=== PATIENT | male | born 1940 | race Caucasian/White ===

== ENCOUNTER → 2017-11-10 13:15 | Outpatient (CLI) | payer MEDICARE, OTHER, SELFPAY ==
[2017-11-10 14:07] LABS: Absolute Lymphocyte Count 1.56 X10^3/ul (0.83-4.51); Absolute Neutrophil Count 2.8 X10^3/uL (2.0-7.7); Basophil# 0.03 X10^3/uL; Basophil% 0.6 % (0-1); Eosinophil# 0.03 X10^3/uL; Eosinophils% 0.6 % (0-5); Hematocrit 45.6 % (40-54); Hemoglobin 15.9 g/dl (13.0-16.5); Lymphocyte # 1.56 X10^3/ul (4.0); Lymphocyte % 29.4 % (19-41); Mean Corp Hgb Conc 34.9 g/gl (32-36); Mean Corpuscular Hgb 31.4 pg (27.0-32.0); Mean Corpuscular Volume 89.9 fL (80-94); Mean Platelet Vol. 8.8 fl (6.2-12.0); Neutrophil # 2.77 X10^3/uL (2.7-7.7); Neutrophil % 52.2 % (47-70); Platelet Count 203 K/mm3 (150-450); RBC Distribution Width CV 14.2 % (11.6-14.6); RBC Distribution Width SD 46.8 fl (35.1-43.9); Red Blood Count 5.07 M/mm3 (4.6-6.2); White Blood Count 5.3 K/mm3 (4.4-11.0)
[2017-11-10 14:14] LABS: POSITIVE COUNT NO; POSITIVE DIFFERENTIAL NO; POSITIVE MORPHOLOGY NO
[2017-11-10 14:47] LABS: ALB/GLOB Ratio 0.7 RATIO (0.9-2.4); AST(SGOT) 23 U/L (15-37); Alanine Aminotransfer ALT/SGPT 29 U/L (16-61); Albumin, Serum 3.2 g/dL (3.2-5.0); Alkaline Phosphatase 66 U/L (45-117); Anion Gap 7 (5-15); BUN 15 mg/dL (7-18); BUN/Creat Ratio 10.8 RATIO (10-20); Calcium,Total 8.7 mg/dL (8.5-10.1); Chloride 99 mmol/L (98-107); Creatinine, Serum 1.39 mg/dL (0.70-1.30); EST Glomerular Filtration Rate 53 mL/min (>60); Est Glom Filt Rate - Afr Amer 64 mL/min (>60); Globulin 4.7 g/dL (2.2-4.2); Glucose 69 mg/dL (74-106); Potassium 3.7 mmol/L (3.5-5.1); Protein, Total 7.9 g/dL (6.4-8.2); Sodium Level 134 mmol/L (136-145); Thyroid Stim Hormone (TSH) 0.87 uIU/mL (0.358-3.74)
== END ==
PROVIDERS: Family Provider Family Medicine Geriatric Medicine; PCP Family Medicine Geriatric Medicine; Visit Provider Family Medicine Geriatric Medicine
DX: E11.9 Type 2 diabetes mellitus without complications (principal); I10 Essential (primary) hypertension; F52.8 Other sexual dysfunction not due to a substance or known physiological condition
CPT/HCPCS: 36415; 80053; 84403; 84443; 85025; 87633

== ENCOUNTER → 2018-05-11 14:49 | Outpatient (CLI) | payer MEDICARE, OTHER, SELFPAY ==
[2018-05-11 17:37] LABS: Absolute Lymphocyte Count 2.15 X10^3/ul (0.83-4.51); Basophil# 0.04 X10^3/uL; Basophil% 0.4 % (0-1); Eosinophil# 0.13 X10^3/uL; Eosinophils% 1.4 % (0-5); Hematocrit 45.7 % (40-54); Hemoglobin 15.4 g/dl (13.0-16.5); Lymphocyte # 2.15 X10^3/ul (4.0); Lymphocyte % 22.7 % (19-41); Mean Corp Hgb Conc 33.7 g/gl (32-36); Mean Corpuscular Hgb 31.1 pg (27.0-32.0); Mean Corpuscular Volume 92.3 fL (80-94); Mean Platelet Vol. 9.3 fl (6.2-12.0); Monocyte# 1.08 X10^3/uL; Monocyte% 11.4 % (0-10); Neutrophil # 6.04 X10^3/uL (2.7-7.7); Neutrophil % 63.8 % (47-70); Platelet Count 283 K/mm3 (150-450); RBC Distribution Width CV 13.7 % (11.6-14.6); RBC Distribution Width SD 45.1 fl (35.1-43.9); Red Blood Count 4.95 M/mm3 (4.6-6.2); White Blood Count 9.5 K/mm3 (4.4-11.0)
[2018-05-11 17:44] LABS: POSITIVE COUNT NO; POSITIVE DIFFERENTIAL NO; POSITIVE MORPHOLOGY NO
[2018-05-11 17:49] LABS: Vitamin D,25 Hydroxy 21.1 ng/mL (29.95-100.01)
[2018-05-11 17:51] LABS: ALB/GLOB Ratio 0.9 RATIO (0.9-2.4); AST(SGOT) 20 U/L (15-37); Alanine Aminotransfer ALT/SGPT 28 U/L (16-61); Albumin, Serum 3.6 g/dL (3.2-5.0); Alkaline Phosphatase 70 U/L (45-117); Anion Gap 10 (5-15); BUN 13 mg/dL (7-18); BUN/Creat Ratio 8.8 RATIO (10-20); Calcium,Total 9.1 mg/dL (8.5-10.1); Chloride 103 mmol/L (98-107); Creatinine, Serum 1.48 mg/dL (0.70-1.30); EST Glomerular Filtration Rate 49 mL/min (>60); Est Glom Filt Rate - Afr Amer 59 mL/min (>60); Globulin 4.2 g/dL (2.2-4.2); Glucose 87 mg/dL (74-106); Potassium 4.3 mmol/L (3.5-5.1); Protein, Total 7.8 g/dL (6.4-8.2); Sodium Level 141 mmol/L (136-145); Thyroid Stim Hormone (TSH) 1.03 uIU/mL (0.358-3.74)
== END ==
PROVIDERS: Family Provider Family Medicine Geriatric Medicine; PCP Family Medicine Geriatric Medicine; Visit Provider Family Medicine Geriatric Medicine
DX: I10 Essential (primary) hypertension (principal); F52.8 Other sexual dysfunction not due to a substance or known physiological condition; E55.9 Vitamin D deficiency, unspecified
CPT/HCPCS: 36415; 80053; 82306; 84403; 84443; 85025

== ENCOUNTER → 2018-09-24 14:04 | Outpatient (CLI) | payer MEDICARE, OTHER, SELFPAY | PROVIDERS: Family Provider Family Medicine Geriatric Medicine; PCP Family Medicine Geriatric Medicine; Visit Provider Family Medicine Geriatric Medicine | DX: N39.0 Urinary tract infection, site not specified (principal) | CPT/HCPCS: 87086 ==

== ENCOUNTER → 2018-10-09 09:12 | Outpatient (CLI) | payer MEDICARE, OTHER, SELFPAY ==
[2017-10-13 06:18] VITALS: BMI 29.1
[2018-10-09 10:20] LABS: Absolute Lymphocyte Count 2.17 X10^3/ul (0.83-4.51); Basophil# 0.02 X10^3/uL; Basophil% 0.1 % (0-1); Eosinophil# 0.04 X10^3/uL; Eosinophils% 0.3 % (0-5); Hematocrit 48.6 % (40-54); Hemoglobin 15.7 g/dl (13.0-16.5); Lymphocyte # 2.17 X10^3/ul (4.0); Lymphocyte % 16.2 % (19-41); Mean Corp Hgb Conc 32.3 g/gl (32-36); Mean Corpuscular Hgb 30.5 pg (27.0-32.0); Mean Corpuscular Volume 94.6 fL (80-94); Mean Platelet Vol. 9.2 fl (6.2-12.0); Monocyte# 1.12 X10^3/uL; Monocyte% 8.4 % (0-10); Neutrophil % 74.8 % (47-70); Platelet Count 266 K/mm3 (150-450); RBC Distribution Width CV 14.2 % (11.6-14.6); RBC Distribution Width SD 48.8 fl (35.1-43.9); Red Blood Count 5.14 M/mm3 (4.6-6.2); White Blood Count 13.4 K/mm3 (4.4-11.0)
[2018-10-09 10:23] LABS: Color, Urine Yellow (Yellow); Glucose, Dipstick Normal (Normal); Ketone-Dipstick Negative (Negative); Leukocyte Esterase-Dipstick Negative /ul (Negative); Nitrite-Dipstick Negative (Negative); Occult Blood-Urine Negative /ul (Negative); Protein-Dipstick 15 mg/dl (Negative); Specific Gravity, Urine 1.025 (1.002-1.030); Urine Bilirubin Dipstick Negative (Negative); Urine Clarity Clear (Clear); Urine Urobilinogen 1 mg/dl (Normal)
[2018-10-09 10:29] LABS: Protein, Urine (Random) 24.1 mg/dL (<11.9); Protein:Creat Ratio 85 mg/g CRE (0-200)
[2018-10-09 10:31] LABS: POSITIVE COUNT NO; POSITIVE DIFFERENTIAL NO; POSITIVE MORPHOLOGY NO
[2018-10-09 10:45] LABS: PTHIN 86.2 pg/mL (18.4-80.1)
[2018-10-09 10:48] LABS: Albumin, Serum 3.5 g/dL (3.2-5.0); BUN 22 mg/dL (7-18); BUN/Creat Ratio 15.4 RATIO (10-20); Calcium,Total 8.6 mg/dL (8.5-10.1); Chloride 105 mmol/L (98-107); Creatinine, Serum 1.43 mg/dL (0.70-1.30); EST Glomerular Filtration Rate 51 mL/min (>60); Est Glom Filt Rate - Afr Amer 62 mL/min (>60); Glucose 101 mg/dL (74-106); Magnesium 2.4 mg/dL (1.6-2.6); Phosphorus 3.5 mg/dL (2.5-4.9); Potassium 3.8 mmol/L (3.5-5.1); Sodium Level 139 mmol/L (136-145)
== END ==
PROVIDERS: Family Provider Family Medicine Geriatric Medicine; PCP Family Medicine Geriatric Medicine; Referring Provider Internal Medicine Nephrology; Visit Provider Internal Medicine Nephrology
DX: E55.9 Vitamin D deficiency, unspecified (principal); N18.3 Chronic kidney disease, stage 3 (moderate); Z13.0 Encounter for screening for diseases of the blood and blood-forming organs and certain disorders involving the immune mechanism; N39.0 Urinary tract infection, site not specified
CPT/HCPCS: 36415; 80069; 81002; 82306; 82570; 83735; 83970; 84156; 85025; 87086; 87088

== ENCOUNTER 2018-11-04 13:35 | Emergency (ER) | payer MEDICARE, OTHER, SELFPAY ==
[2018-11-04 13:36] VITALS: BP 138/74; PULSE 87; RESP 14; TEMP 36.6; O2SAT 95; BMI 27.4
[2018-11-04 13:49] VITALS: O2SAT 100
--- NOTE | 2018-11-04 13:57 | CT_ITS ---
STUDY: CT ABDOMEN AND PELVIS WITHOUT CONTRAST REASON FOR EXAM: Male, 78 years old. Fall RADIATION DOSAGE (If Supplied By Facility): CTDIvol = ( 23.23 ) mGy, DLP = ( 1257.87 ) mGycm TECHNIQUE: Transaxial images were obtained from the dome of the diaphragm to the symphysis pubis without oral contrast, and without intravenous contrast. Sagittal and coronal images were reconstructed. Individualized dose optimization techniques were used for this CT. COMPARISON: CT abdomen and pelvis 10/13/2017, CT chest 10/04/2018, CT abdomen and pelvis 11/21/2014. FINDINGS: Body wall soft tissues: No acute process. Osseous structures: No acute process. There is no evidence of acute fracture. Inferior chest: Lung bases clear. Normal distal esophagus. Borderline cardiomegaly without pericardial effusion. Coronary calcifications are present. Hepatobiliary: Normal. Pancreas: No acute process. Spleen: Normal. Adrenal glands: Normal. Urogenital: Stable benign right renal cyst measuring 2.7 cm. Calculus of left renal inferior pole calyx was not present on prior imaging of September 2017. About 5 mm. Nonobstructing. There is no apparent renal atrophy. Normal collecting systems, ureters, urinary bladder. Mild prostatomegaly. Unremarkable seminal vesicles. Pelvic floor and sidewalls and retroperitoneum: No mass or adenopathy. Mild to moderate aortoiliac atherosclerosis. Vasculature: No acute process. Stomach: No acute process. Small bowel and mesentery: No acute process. Large bowel: The appendix is not clearly visualized and may be surgically absent. There is diverticulosis of the distal large bowel into the sigmoid without acute diverticulitis. Normal rectum. Free fluid or free air: None. CT/Abdomen/Pelvis without Cont IMPRESSION: No evidence of acute traumatic injury. Electronically Signed: Sd Tapia MD at 14:58 EST Tel , Service support ,
--- NOTE | 2018-11-04 13:57 | CT_ITS ---
STUDY: CT BRAIN WITHOUT CONTRAST REASON FOR EXAM: Male, 78 years old. Fall. RADIATION DOSAGE (If Supplied By Facility): CTDIvol = ( 44.99 ) mGy, DLP = ( 796.11 ) mGycm TECHNIQUE: Transaxial CT imaging of the brain was performed without administration of intravenous contrast material. Individualized dose optimization techniques were used for this CT. COMPARISON: None. FINDINGS: Normal soft tissue structures. Normal calvarium. There are atherosclerotic calcifications of the cavernous segments of the bilateral internal carotid arteries. There is mild cerebral atrophy with widening of the extra-axial spaces and ventricular dilatation. There are areas of decreased attenuation within the white matter tracts of the supratentorial brain, consistent with microvascular disease changes. Normal basal ganglia and thalami. Normal brainstem. Normal cerebellum. There is no intracranial hemorrhage. There are no findings of an acute ischemic infarction. There is froy bullosa of the right middle turbinate, which is enlarged compared to the left. There is resultant upward bowing of the nasal septum. Normal visualized paranasal sinuses. CT/Brain/Head without Contrast IMPRESSION: Chronic involutional/microvascular ischemic changes of the brain. No acute intracranial injury. Electronically Signed: Obdulio Smith MD at 14:50 EST , Service support ,
--- NOTE | 2018-11-04 13:58 | CT_ITS ---
STUDY: CT CHEST/THORAX WITHOUT CONTRAST REASON FOR EXAM: Male, 78 years old. Fall RADIATION DOSAGE (If Supplied By Facility): CTDIvol = ( 19.57 ) mGy, DLP = ( 650.07 ) mGycm TECHNIQUE: Transaxial imaging was performed without the administration of intravenous contrast material. Multiplanar coronal and sagittal images were reformatted. Individualized dose optimization techniques were used for this CT. COMPARISON: PA and lateral chest x-ray December 06, 2016; CTA chest January 16, 2016. FINDINGS: There is curvilinear scarring in the posterolateral right lung base and, to a lesser degree, in the posterior periphery of the right lung new superior margin of the oblique fissure There is no demonstrated pleural abnormality. Normal heart and pericardium. There are calcifications of the coronary arteries. Normal mediastinum. Normal hilar regions. Normal unenhanced pulmonary arteries. There is atherosclerotic calcification of the aortic arch or proximal brachiocephalic arteries, and descending thoracic aorta. 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 There are diffuse multi-level degenerative changes of the visualized spine with bridging anterolateral endplate osteophytes at nearly all levels. Osseous fusion across the sternomanubrial joint space also noted. There are mild osteoarthritic degenerative changes of the bilateral shoulders and acromioclavicular joints. There is no demonstrated abnormality of the visualized upper abdomen. CT/Chest without Contrast IMPRESSION: 1. No sign of acute thoracic injury. 2. Atherosclerotic vascular calcifications again noted. The heart size is normal. 3. Curvilinear scarring in the right lung, as noted. No consolidating infiltrate or pleural effusion. 4. Diffuse multilevel degenerative changes of the spine. Electronically Signed: Obdulio Smith MD at 15:02 EST , Service support ,
[2018-11-04] MEDS: 0.9% Normal Saline 1,000 ML 150 ML IV (14:16)
[2018-11-04] MEDS: Ondansetron 4 MG/2 ML Vial IV (14:17)
[2018-11-04] MEDS: Morphine 4 MG/ML Syringe IV (14:17)
[2018-11-04 14:33] LABS: Absolute Lymphocyte Count 2.08 X10^3/ul (0.83-4.51); Absolute Neutrophil Count 7.3 X10^3/uL (2.0-7.7); Basophil# 0.03 X10^3/uL; Basophil% 0.3 % (0-1); Eosinophil# 0.09 X10^3/uL; Eosinophils% 0.9 % (0-5); Hematocrit 46.6 % (40-54); Hemoglobin 15.4 g/dl (13.0-16.5); Lymphocyte # 2.08 X10^3/ul (4.0); Lymphocyte % 19.7 % (19-41); Mean Corpuscular Hgb 30.8 pg (27.0-32.0); Mean Corpuscular Volume 93.2 fL (80-94); Mean Platelet Vol. 8.2 fl (6.2-12.0); Monocyte# 0.97 X10^3/uL; Monocyte% 9.2 % (0-10); Neutrophil # 7.33 X10^3/uL (2.7-7.7); Neutrophil % 69.5 % (47-70); POSITIVE COUNT NO; POSITIVE DIFFERENTIAL NO; POSITIVE MORPHOLOGY NO; Platelet Count 259 K/mm3 (150-450); RBC Distribution Width CV 13.7 % (11.6-14.6); RBC Distribution Width SD 44.9 fl (35.1-43.9); White Blood Count 10.5 K/mm3 (4.4-11.0)
[2018-11-04 14:46] LABS: Anion Gap 7 (5-15); BUN 13 mg/dL (7-18); Calcium,Total 8.8 mg/dL (8.5-10.1); Chloride 106 mmol/L (98-107); Creatinine, Serum 1.18 mg/dL (0.70-1.30); EST Glomerular Filtration Rate 64 mL/min (>60); Est Glom Filt Rate - Afr Amer 77 mL/min (>60); Estimated Creatinine Clearance 47.31 ml/min; Glucose 103 mg/dL (74-106); Potassium 3.7 mmol/L (3.5-5.1); Sodium Level 142 mmol/L (136-145)
--- NOTE | 2018-11-04 15:15 | ED.DCSUM_ITS ---
- ER Visit Summary Date of Service: 11/04/18 Chief Complaint: [Fall] History of Present Illness: The patient is a 78 M [presents to the emergency department with complaint of a fall that occurred around 5 AM when he got out of bed today. Patient's not sure exactly how he fell but fell with his left side against the nightstand. Patient's not sure if he is hit his head but there is no loss of consciousness. He denies any neck pain. Patient complains of pain with movement and with deep breath. Patient had some mild discomfort in his right hip initially but that since resolved. Patient has been ambulatory. Patient on Eliquis for history of PEs. Patient with history of hypertension and high cholesterol] Physical Examination: [HEENT-PERRLA, EOMI. Cranial nerves II through XII grossly intact. TMs clear. Mucous membranes moist. No adenopathy. Cardiovascular-regular rate and rhythm without murmur or ectopy Lungs-clear to auscultation, chest wall stable without crepitus or subcu emphysema. Patient has tenderness palpation over the left anterior ribs into the mid axillary line. No significant ecchymosis or bruising noted. Abdomen-normoactive bowel sounds, soft. Patient has tenderness over left upper quadrant with some guarding. Patient has some ecchymosis and bruising noted to the left upper quadrant of the abdomen. Back exam-patient has no tenderness over the C-spine, T-spine, or LS-spine. Extremities-intact ?4, normal range of motion, normal pulses, atraumatic] Test Results: [CBC with differential obtained showed a white count of 10.5, hemoglobin 15, hematocrit 47, placed 259. Chemistries unremarkable. CT scan of the brain without contrast showed chronic involutional changes. CT scan of the abdomen pelvis without contrast showed no traumatic injuries and CT scan of the chest showed no evidence of trauma or injury.] Emergency Department Course and Treatment: She was medicated with morphine and Zofran] Treatment Plan: [Patient will be given a prescription for Avis and advised to follow-up with primary care physician 3-5 days] Disposition: [Discharged home stable condition] Impression: [Fall Chest contusion Abdominal wall contusion Closed head injury] This note was generated with [employer] dictation software. It may contain incorrect words, spelling, and punctuation that were not noted in review of the chart prior to signing ED Disposition - Plan for ED Patient: Referrals: Roberto Mullen Chi, MD [Primary Care Provider] -
--- NOTE | 2018-11-04 15:16 | ED.DEP ---
ED Disposition - Plan for ED Patient: Instructions: ED Mechanical Fall, ED Contusion Chest Wall Prescriptions: Oxycodone HCl/Acetaminophen [Percocet 5/325] 1 tab PO Q6H PRN PRN 5 Days #20 tab PRN Reason: Pain Referrals: Roberto uMllen Chi, MD [Primary Care Provider] - 5-7 Days
--- NOTE | 2018-11-04 15:19 | DCINST.ED_ITS ---
ED Disposition - Plan for ED Patient: Instructions: ED Mechanical Fall, ED Contusion Chest Wall Prescriptions: Oxycodone HCl/Acetaminophen [Percocet 5/325] 1 tab PO Q6H PRN PRN 5 Days #20 tab PRN Reason: Pain Referrals: Roberto Mullen Chi, MD [Primary Care Provider] - 5-7 Days
[2018-11-04 15:28] VITALS: BP 172/82; PULSE 81; RESP 18; O2SAT 99
== END 2018-11-04 15:28 | disposition home or self-care (01) ==
LOC: ED 14:04
PROVIDERS: Emergency Provider Emergency Medicine; Family Provider Family Medicine Geriatric Medicine; PCP Family Medicine Geriatric Medicine
DX: S20.219A Contusion of unspecified front wall of thorax, initial encounter (principal); S30.1XXA Contusion of abdominal wall, initial encounter; S09.90XA Unspecified injury of head, initial encounter; W20.8XXA Other cause of strike by thrown, projected or falling object, initial encounter; Y93.9 Activity, unspecified; Y92.89 Other specified places as the place of occurrence of the external cause; Y99.9 Unspecified external cause status; I10 Essential (primary) hypertension; E78.00 Pure hypercholesterolemia, unspecified; Z86.711 Personal history of pulmonary embolism
CPT/HCPCS: 70450; 71250; 74176; 80048; 85025; 99283; J7030; A4216; J2405

== ENCOUNTER → 2018-11-11 15:10 | Outpatient (CLI) | payer MEDICARE, OTHER, SELFPAY ==
[2018-11-04 13:36] VITALS: BMI 27.4
[2018-11-11 16:26] LABS: Absolute Lymphocyte Count 2.15 X10^3/ul (0.83-4.51); Absolute Neutrophil Count 8.9 X10^3/uL (2.0-7.7); Basophil# 0.03 X10^3/uL; Basophil% 0.3 % (0-1); Eosinophil# 0.09 X10^3/uL; Eosinophils% 0.8 % (0-5); Hematocrit 48.1 % (40-54); Hemoglobin 15.6 g/dl (13.0-16.5); Lymphocyte # 2.15 X10^3/ul (4.0); Lymphocyte % 17.9 % (19-41); Mean Corp Hgb Conc 32.4 g/gl (32-36); Mean Corpuscular Hgb 30.5 pg (27.0-32.0); Mean Corpuscular Volume 93.9 fL (80-94); Monocyte# 0.78 X10^3/uL; Monocyte% 6.5 % (0-10); Neutrophil # 8.89 X10^3/uL (2.7-7.7); Neutrophil % 74.1 % (47-70); Platelet Count 268 K/mm3 (150-450); RBC Distribution Width CV 13.8 % (11.6-14.6); RBC Distribution Width SD 47.3 fl (35.1-43.9); Red Blood Count 5.12 M/mm3 (4.6-6.2)
[2018-11-11 16:35] LABS: POSITIVE COUNT NO; POSITIVE DIFFERENTIAL NO; POSITIVE MORPHOLOGY NO
[2018-11-11 16:44] LABS: Vitamin D,25 Hydroxy 23.4 ng/mL (29.95-100.01)
[2018-11-11 16:52] LABS: ALB/GLOB Ratio 0.8 RATIO (0.9-2.4); AST(SGOT) 12 U/L (15-37); Alanine Aminotransfer ALT/SGPT 23 U/L (16-61); Albumin, Serum 3.5 g/dL (3.2-5.0); Alkaline Phosphatase 79 U/L (45-117); Anion Gap 10 (5-15); BUN 13 mg/dL (7-18); BUN/Creat Ratio 8.4 RATIO (10-20); Calcium,Total 9.1 mg/dL (8.5-10.1); Chloride 104 mmol/L (98-107); Creatinine, Serum 1.55 mg/dL (0.70-1.30); EST Glomerular Filtration Rate 46 mL/min (>60); Est Glom Filt Rate - Afr Amer 56 mL/min (>60); Globulin 4.2 g/dL (2.2-4.2); Glucose 126 mg/dL (74-106); Potassium 3.8 mmol/L (3.5-5.1); Protein, Total 7.7 g/dL (6.4-8.2); Sodium Level 142 mmol/L (136-145); Uric Acid 6.4 mg/dL (3.5-7.2)
== END ==
PROVIDERS: Family Provider Family Medicine Geriatric Medicine; PCP Family Medicine Geriatric Medicine; Visit Provider Family Medicine Geriatric Medicine
DX: E55.9 Vitamin D deficiency, unspecified (principal); I10 Essential (primary) hypertension; F52.8 Other sexual dysfunction not due to a substance or known physiological condition; M10.9 Gout, unspecified
CPT/HCPCS: 36415; 80053; 82306; 84403; 84443; 84550; 85025

== ENCOUNTER → 2018-12-11 11:17 | Outpatient (CLI) | payer MEDICARE, OTHER, SELFPAY ==
[2018-12-11 12:29] LABS: Absolute Lymphocyte Count 2.71 X10^3/ul (0.83-4.51); Absolute Neutrophil Count 5.6 X10^3/uL (2.0-7.7); Basophil# 0.04 X10^3/uL; Basophil% 0.4 % (0-1); Eosinophil# 0.18 X10^3/uL; Eosinophils% 1.9 % (0-5); Hematocrit 46.2 % (40-54); Lymphocyte # 2.71 X10^3/ul (4.0); Lymphocyte % 28.9 % (19-41); Mean Corp Hgb Conc 32.5 g/gl (32-36); Mean Corpuscular Hgb 30.2 pg (27.0-32.0); Mean Corpuscular Volume 93.1 fL (80-94); Mean Platelet Vol. 8.9 fl (6.2-12.0); Monocyte# 0.85 X10^3/uL; Monocyte% 9.1 % (0-10); Neutrophil # 5.56 X10^3/uL (2.7-7.7); Neutrophil % 59.3 % (47-70); Platelet Count 252 K/mm3 (150-450); RBC Distribution Width SD 47.1 fl (35.1-43.9); Red Blood Count 4.96 M/mm3 (4.6-6.2); White Blood Count 9.4 K/mm3 (4.4-11.0)
[2018-12-11 12:38] LABS: Erythrocyte Sedimentation Rate 14 mm/hr (0-20)
[2018-12-11 12:41] LABS: Anion Gap 4 (5-15); BUN 13 mg/dL (7-18); BUN/Creat Ratio 9.1 RATIO (10-20); Calcium,Total 8.8 mg/dL (8.5-10.1); Chloride 106 mmol/L (98-107); Creatinine, Serum 1.43 mg/dL (0.70-1.30); EST Glomerular Filtration Rate 51 mL/min (>60); Est Glom Filt Rate - Afr Amer 62 mL/min (>60); Glucose 97 mg/dL (74-106); POSITIVE COUNT NO; POSITIVE DIFFERENTIAL NO; POSITIVE MORPHOLOGY NO; Potassium 3.9 mmol/L (3.5-5.1); Sodium Level 140 mmol/L (136-145)
== END ==
PROVIDERS: Family Provider Family Medicine Geriatric Medicine; PCP Family Medicine Geriatric Medicine; Visit Provider Family Medicine Geriatric Medicine
DX: M10.9 Gout, unspecified (principal)
CPT/HCPCS: 36415; 80048; 84550; 85025; 85652; 86140

== ENCOUNTER → 2018-12-11 11:27 | Outpatient (CLI) | payer MEDICARE, OTHER, SELFPAY ==
--- NOTE | 2018-12-11 11:35 | RAD_ITS ---
STUDY: X-RAY - RIGHT KNEE REASON FOR EXAM: Pain. TECHNIQUE: 4 view(s) of the knee. COMPARISON: None. FINDINGS: Normal visualized distal femur. Normal visualized proximal tibia and fibula. 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 Normal medial femorotibial compartment. Normal lateral femorotibial compartment. Normal patellofemoral articulation. There is enthesopathy of the patella and anterior tibial tubercle. RAD/Knee 4 or More Views IMPRESSION: Enthesopathy of the patella and anterior tibial tubercle. Arthrosis of the proximal tibiofibular articulation. Electronically Signed: Gene Yi MD at 14:04 EDT Tel , Service support ,
== END ==
PROVIDERS: Family Provider Family Medicine Geriatric Medicine; PCP Family Medicine Geriatric Medicine; Referring Provider Family Medicine Geriatric Medicine; Visit Provider Family Medicine Geriatric Medicine
DX: M25.569 Pain in unspecified knee (principal)
CPT/HCPCS: 36415; 73564; 80048; 84550; 85025; 85652; 86140

== ENCOUNTER → 2019-01-08 10:13 | Outpatient (CLI) | payer MEDICARE, OTHER, SELFPAY ==
[2019-01-08 12:32] LABS: PSA,Total- Diagnostic 4.09 ng/mL (0.0-4.0)
== END ==
PROVIDERS: Family Provider Family Medicine Geriatric Medicine; PCP Family Medicine Geriatric Medicine; Referring Provider Urology; Visit Provider Urology
DX: R97.20 Elevated prostate specific antigen [PSA] (principal)
CPT/HCPCS: 36415; 84153

== ENCOUNTER → 2019-04-29 11:52 | Outpatient (CLI) | payer MEDICARE, OTHER, SELFPAY ==
[2019-04-29 12:09] LABS: Absolute Lymphocyte Count 2.51 X10^3/uL (0.83-4.51); Absolute Neutrophil Count 5.3 X10^3/uL (2.0-7.7); Basophil# 0.08 X10^3/uL; Basophil% 0.9 % (0-1); Eosinophils% 2.2 % (0-5); Hematocrit 46.4 % (40-54); Hemoglobin 16.3 g/dL (13.0-16.5); Lymphocyte # 2.51 X10^3/ul (4.0); Lymphocyte % 27.4 % (19-41); Mean Corp Hgb Conc 35.1 g/dL (32-36); Mean Corpuscular Hgb 32.3 pg (27.0-32.0); Mean Corpuscular Volume 91.9 fL (80-94); Mean Platelet Vol. 8.5 fl (6.2-12.0); Monocyte# 0.98 X10^3/uL; Monocyte% 10.7 % (0-10); NRBC Flagged by Analyzer 0 % (0-5); Neutrophil # 5.34 X10^3/uL (2.7-7.7); Neutrophil % 58.4 % (47-70); Platelet Count 239 K/mm3 (150-450); RBC Distribution Width CV 12.9 % (11.6-14.6); RBC Distribution Width SD 43.1 fl (35.1-43.9); Red Blood Count 5.05 M/mm3 (4.6-6.2); White Blood Count 9.2 K/mm3 (4.4-11.0)
[2019-04-29 12:16] LABS: Anion Gap 5 (5-15); BUN 15 mg/dL (7-18); BUN/Creat Ratio 12.6 RATIO (10-20); Calcium,Total 9.1 mg/dL (8.5-10.1); Chloride 105 mmol/L (98-107); Creatinine, Serum 1.19 mg/dL (0.70-1.30); EST Glomerular Filtration Rate 63 mL/min (>60); Est Glom Filt Rate - Afr Amer 76 mL/min (>60); Glucose 101 mg/dL (74-106); Potassium 3.8 mmol/L (3.5-5.1); Sodium Level 139 mmol/L (136-145)
== END ==
PROVIDERS: Family Provider Family Medicine Geriatric Medicine; PCP Family Medicine Geriatric Medicine; Visit Provider Family Medicine Geriatric Medicine
DX: M54.5 Low back pain (principal); N39.0 Urinary tract infection, site not specified
CPT/HCPCS: 36415; 80048; 85025; 87086

== ENCOUNTER → 2019-04-29 13:58 | Outpatient (CLI) | payer MEDICARE, OTHER, SELFPAY ==
--- NOTE | 2019-04-29 14:01 | CT_ITS ---
STUDY: CT ABDOMEN AND PELVIS WITHOUT CONTRAST REASON FOR EXAM: Male, 78 years old. Back pain. Recent falls. RADIATION DOSAGE (If Supplied By Facility): CTDIvol = ( 11.15 ) mGy, DLP = ( 530.12 ) mGycm TECHNIQUE: Transaxial images were obtained from the dome of the diaphragm to the symphysis pubis without oral contrast, and without intravenous contrast. Sagittal and coronal images were reconstructed. Individualized dose optimization techniques were used for this CT. COMPARISON: Comparison is made with prior study dated November 04, 2018. FINDINGS: Mild increased markings at the lung bases suggestive of linear atelectasis and/or scarring. The visualized portions of the heart are within normal limits. Normal liver. Normal gallbladder and extrahepatic biliary system. Normal spleen. Normal pancreas. Normal bilateral adrenal glands. Stable right renal cyst measuring 2.3 cm. Stable nonobstructive calculus measuring 8.2 mm in the lower pole calyx of the left kidney. Normal left kidney. Normal visualized stomach. Normal small intestine. There are multiple colonic diverticula consistent with diverticulosis. The appendix is visualized and appears normal. There is diffuse atherosclerotic calcification of the abdominal aorta and its major visceral branches, without a demonstrated aneurysm. Normal inferior vena cava. There is borderline retroperitoneal lymphadenopathy with enlarged nodes no greater than 10mm in the short axis diameter. Normal urinary bladder. There is enlargement of the prostate gland. This causes indentation at the bladder base. Normal abdominal wall. There are diffuse degenerative changes of the visualized lumbar spine. CT/Abdomen/Pelvis without Cont IMPRESSION: Stable right renal cyst and nonobstructive calculus in the left kidney. Sigmoid diverticulosis. Enlargement of the prostate with indentation of the bladder base. Electronically Signed: Jerry Lewis, at 15:05 EDT , Service support ,
--- NOTE | 2019-04-29 14:08 | RAD_ITS ---
STUDY: X-RAY - LUMBAR SPINE REASON FOR EXAM: Male, 78 years old. Chronic low back pain TECHNIQUE: 3 view(s) of the lumbar spine were obtained. COMPARISON: CT of the lumbar spine in November 08, 2017 FINDINGS: Normal lumbar lordosis. There is no substantial scoliosis. There is a normal alignment of the vertebrae. No evidence for acute fracture or subluxation. Disc space heights are well-maintained however there is multilevel osteophytic spurring.. Vascular calcification noted without evidence for aneurysm. Small calcification in the lower pole of the left kidney No significant change since prior exam RAD/Lumbar Spine 2 or 3 Views IMPRESSION: Mild spondylosis. No evidence for acute fracture Electronically Signed: Edmond Fernandez MD at 17:19 EDT , Service support ,
== END ==
PROVIDERS: Family Provider Family Medicine Geriatric Medicine; PCP Family Medicine Geriatric Medicine; Referring Provider Family Medicine Geriatric Medicine; Visit Provider Family Medicine Geriatric Medicine
DX: R10.9 Unspecified abdominal pain (principal); M54.5 Low back pain
CPT/HCPCS: 36415; 72100; 74176; 80048; 85025; 87086

== ENCOUNTER → 2019-05-14 09:00 | Outpatient (CLI) | payer MEDICARE, OTHER, SELFPAY ==
[2019-05-14 13:42] LABS: Absolute Lymphocyte Count 2.96 X10^3/uL (0.83-4.51); Absolute Neutrophil Count 9.2 X10^3/uL (2.0-7.7); Basophil# 0.08 X10^3/uL; Basophil% 0.6 % (0-1); Eosinophils% 0.7 % (0-5); Hematocrit 45.8 % (40-54); Hemoglobin 15.1 g/dL (13.0-16.5); Lymphocyte # 2.96 X10^3/ul (4.0); Mean Corpuscular Hgb 30.4 pg (27.0-32.0); Mean Corpuscular Volume 92.2 fL (80-94); Mean Platelet Vol. 9.2 fl (6.2-12.0); Monocyte# 1.04 X10^3/uL; Monocyte% 7.7 % (0-10); NRBC Flagged by Analyzer 0 % (0-5); Neutrophil # 9.21 X10^3/uL (2.7-7.7); Neutrophil % 68.6 % (47-70); Platelet Count 288 K/mm3 (150-450); RBC Distribution Width CV 13.5 % (11.6-14.6); RBC Distribution Width SD 45.1 fl (35.1-43.9); Red Blood Count 4.97 M/mm3 (4.6-6.2); White Blood Count 13.5 K/mm3 (4.4-11.0)
[2019-05-14 14:00] LABS: Vitamin D,25 Hydroxy 17.6 ng/mL (29.95-100.01)
[2019-05-14 14:07] LABS: ALB/GLOB Ratio 0.9 RATIO (0.9-2.4); AST(SGOT) 11 U/L (15-37); Alanine Aminotransfer ALT/SGPT 22 U/L (16-61); Albumin, Serum 3.5 g/dL (3.2-5.0); Alkaline Phosphatase 75 U/L (45-117); Anion Gap 6 (5-15); BUN 16 mg/dL (7-18); BUN/Creat Ratio 13.7 RATIO (10-20); Chloride 107 mmol/L (98-107); Creatinine, Serum 1.17 mg/dL (0.70-1.30); EST Glomerular Filtration Rate 64 mL/min (>60); Est Glom Filt Rate - Afr Amer 78 mL/min (>60); Glucose 89 mg/dL (74-106); Potassium 3.8 mmol/L (3.5-5.1); Protein, Total 7.5 g/dL (6.4-8.2); Sodium Level 140 mmol/L (136-145); Thyroid Stim Hormone (TSH) 1.91 uIU/mL (0.358-3.74); Uric Acid 7.1 mg/dL (3.5-7.2)
== END ==
PROVIDERS: Family Provider Family Medicine Geriatric Medicine; PCP Family Medicine Geriatric Medicine; Visit Provider Family Medicine Geriatric Medicine
DX: I10 Essential (primary) hypertension (principal); E11.9 Type 2 diabetes mellitus without complications; E55.9 Vitamin D deficiency, unspecified; F52.8 Other sexual dysfunction not due to a substance or known physiological condition; M10.9 Gout, unspecified
CPT/HCPCS: 36415; 80053; 82306; 84403; 84443; 84550; 85025

== ENCOUNTER 2019-05-22 17:34 | Emergency (ER) | payer MEDICARE, OTHER, SELFPAY ==
[2019-05-22 17:35] VITALS: BP 150/69; PULSE 74; RESP 18; TEMP 36.1; O2SAT 97; BMI 26.2
[2019-05-22 18:38] LABS: Absolute Lymphocyte Count 1.87 X10^3/uL (0.83-4.51); Absolute Neutrophil Count 7.7 X10^3/uL (2.0-7.7); Basophil# 0.07 X10^3/uL; Basophil% 0.7 % (0-1); Eosinophil# 0.12 X10^3/uL; Eosinophils% 1.1 % (0-5); Hematocrit 47.8 % (40-54); Hemoglobin 15.9 g/dL (13.0-16.5); Lymphocyte # 1.87 X10^3/ul (4.0); Lymphocyte % 17.6 % (19-41); Mean Corp Hgb Conc 33.3 g/dL (32-36); Mean Corpuscular Hgb 30.8 pg (27.0-32.0); Mean Corpuscular Volume 92.5 fL (80-94); Mean Platelet Vol. 8.4 fl (6.2-12.0); Monocyte# 0.85 X10^3/uL; NRBC Flagged by Analyzer 0 % (0-5); Neutrophil # 7.72 X10^3/uL (2.7-7.7); Neutrophil % 72.4 % (47-70); Platelet Count 261 K/mm3 (150-450); RBC Distribution Width CV 13.4 % (11.6-14.6); RBC Distribution Width SD 45.9 fl (35.1-43.9); Red Blood Count 5.17 M/mm3 (4.6-6.2); White Blood Count 10.7 K/mm3 (4.4-11.0)
[2019-05-22 18:48] VITALS: BP 145/70; PULSE 80; RESP 14; O2SAT 98
[2019-05-22 18:51] LABS: Anion Gap 5 (5-15); BUN 11 mg/dL (7-18); BUN/Creat Ratio 9.1 RATIO (10-20); Calcium,Total 9.1 mg/dL (8.5-10.1); Chloride 104 mmol/L (98-107); Creatinine, Serum 1.21 mg/dL (0.70-1.30); EST Glomerular Filtration Rate 62 mL/min (>60); Est Glom Filt Rate - Afr Amer 75 mL/min (>60); Estimated Creatinine Clearance 46.14 ml/min; Glucose 99 mg/dL (74-106); Sodium Level 139 mmol/L (136-145)
[2019-05-22 19:07] LABS: Bacteria 0 SEEN /hpf (None Seen); Mucous, Urine 0 SEEN /hpf (<or=2+); White Blood Cells 0 SEEN /hpf (0-5)
[2019-05-22 19:12] LABS: Color, Urine Yellow (Yellow); Glucose, Dipstick Normal (Normal); Ketone-Dipstick Negative (Negative); Leukocyte Esterase-Dipstick Negative /ul (Negative); Nitrite-Dipstick Negative (Negative); Occult Blood-Urine 10 /ul (Negative); Protein-Dipstick Negative (Negative); Specific Gravity, Urine 1.005 (1.002-1.030); Urine Bilirubin Dipstick Negative (Negative); Urine Clarity Clear (Clear); Urine Urobilinogen Normal (Normal); Urine pH 6.5 (5.0 - 8.0)
[2019-05-22 19:18] LABS: Red Blood Cells-Urine 0-5 SEEN /hpf (0-5); Squamous Epithelial Cells - UA 0-5 SEEN /hpf (0-5)
--- NOTE | 2019-05-22 19:24 | CT_ITS ---
STUDY: CT ABDOMEN AND PELVIS WITH CONTRAST REASON FOR EXAM: Male, 78 years old. Left lower quadrant pain, RADIATION DOSAGE (If Supplied By Facility): CTDIvol = ( 15.83 ) mGy, DLP = ( 761.82 ) mGycm TECHNIQUE: CT images were obtained from the dome of the diaphragm to the symphysis pubis without oral contrast. 100ML IV Isovue 300 was administered. Sagittal and coronal images were reconstructed. Individualized dose optimization techniques were used for this CT. COMPARISON: 04 November 2018. FINDINGS: The visualized lung bases are unremarkable. The visualized portions of the heart are within normal limits. Normal liver. Normal gallbladder and extrahepatic biliary system. Normal spleen. Normal pancreas. Normal bilateral adrenal glands. There is a 1 cm left renal inferior calyceal nonobstructing stone. There are no ureteral or bladder stones. There is a simple right renal 3 cm cyst. There is no intestinal obstruction. There is mild inflammatory change in the left lower quadrant at the junction of the descending and sigmoid. There is extensive descending and sigmoid diverticulosis. There is no abscess or alana perforation. Appendix is surgically removed. Normal abdominal aorta. Normal inferior vena cava. 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 Normal urinary bladder. Normal abdominal wall. Normal osseous structures. CT/Abdomen/Pelvis W IV Cont ONLY IMPRESSION: 1. Mild left lower quadrant diverticulitis without abscess. Electronically Signed: Xin Quintero, at 20:23 EDT Tel , Service support ,
--- NOTE | 2019-05-22 19:25 | ED.VIS.GI ---
History of Present Illness Chief Complaint: Abd Pain Informant: Patient - Abdominal Pain/Flank Pain Onset: Yesterday Context: Gradual Onset Timing: Continuous Quality: Aching Location: LLQ Current Severity: Moderate Maximum Severity: Moderate Worsened by: Nothing Relieved by: Nothing - no better after large BM today - Nausea/Vomiting/Emesis GI Symptom: Negative for: Nausea, Vomiting - Diarrhea/Melena/Hematochezia GI Symptom: Negative for: Diarrhea, Melena, Hematochezia Associated Symptoms: Negative for: Dysuria, Frequency, Hematuria, Urgency Narrative: Chronically intermittent small amounts of bright red blood per rectum, none since 5-6 days ago. This pain started yesterday and has been gradually worsening over the day. Chronic constipation is unchanged. Scheduled to see Dr. Hopkins for scope because of the bleeding. He is on Eliquis because of pulmonary emboli. Pain does not radiate into his back. Decreased appetite, but no nausea or vomiting or fevers that he knows of. No urinary symptoms. Does have a history of kidney stones and diverticulitis, states this does not necessarily feel like either one to him. - Past Medical History (1) Diverticulosis Status: Chronic (2) Kidney stones Status: Chronic (3) Anxiety Status: Chronic (4) GERD (gastroesophageal reflux disease) Status: Chronic Comment: Barrets esophagus (5) HTN (hypertension) Status: Chronic (6) Hypercholesteremia Status: Chronic Past Medical History - Allergies and Home Meds Allergies/Adverse Reactions: Allergies prednisone Allergy (Verified 05/22/19 17:34) Other Primary Care Physician: Roberto Mullen Chi, MD [Primary Care Provider] - Surgical History: appendectomy Smoking Status: Former smoker Drugs: None - Family History Maternal Family History: Reports: No pertinent history Review of Systems General: Denies: Chills, Fever, Sweats Eyes: Denies: Visual changes - bilaterally, Diplopia ENT: Denies: Rhinorrhea, Sore throat Cardiovascular: Denies: Chest pain, Palpitations Respiratory: Denies: Dyspnea, Cough, Dyspnea on exertion Gastrointestinal: Reports: Abdominal pain, Constipation, Hematochezia - None since 5-6 days ago, - - Anorexia. Denies: Nausea, Vomiting, Diarrhea, Melena Genitourinary: Denies: Dysuria, Hematuria, Frequency Musculoskeletal: Denies: Back pain, Extremity Pain Skin: Denies: Rash, Wounds Neurological: Denies: Headache, Weakness, Numbness Physical Exam Vital Signs/Narrative: Vital Signs Temp Pulse Resp BP Pulse Ox 05/22/19 18:48 80 14 145/70 H 98 05/22/19 17:35 97.0 F L 74 18 150/69 H 97 Inital Vital Signs reviewed: Yes General: Well nourished, Well developed, No Acute Distress Head: Normocephalic, Atraumatic Eyes: Perrl, EOMI ENT: Moist mucous membranes, No rhinorrhea Neck: Supple, Nontender Cardiovascular: Regular rate, Regular rhythm, No murmurs Respiratory: No distress, CTA bilaterally, Chest nontender Abdomen: Soft, Nondistended, Normal bowel sounds, Tender - Left lower quadrant only. Negative for: Guarding, Rebound tenderness Back: Nontender, Normal Inspection. Negative for: CVA tenderness Extremities: Nontender, No edema Skin: Normal color, No rash, Trauma - Old ecchymoses left forearm Neurological: Alert, Oriented x3, Cranial nerves II-XII grossly intact, Normal Strength, Normal Sensation Psychological: Normal affect, Normal Mood Diagnostic/Tx/Re-eval Impressions Abdomen/Pelvis CT 05/22/19 19:24 IMPRESSION: 1. Mild left lower quadrant diverticulitis without abscess. Electronically Signed: Lorivicki Leon, at 20:23 EDT Tel , Service support , 05/22/19 19:24 Abdomen/Pelvis W IV Cont ONLY [CT] Stat Laboratory Results 05/22/19 05/22/19 05/22/19 18:27 18:27 19:00 WBC 10.7 RBC 5.17 Hgb 15.9 Hct 47.8 MCV 92.5 MCH 30.8 MCHC 33.3 RDW Std Deviation 45.9 H RDW Coeff of Maritza 13.4 Plt Count 261 MPV 8.4 Immature Gran % (Auto) 0.200 Neut % (Auto) 72.4 H Lymph % (Auto) 17.6 L [place] % (Auto) 8.0 Eos % (Auto) 1.1 Baso % (Auto) 0.7 Absolute Neuts (auto) 7.7 Absolute Lymphs (auto) 1.87 Nucleated RBC % 0 Sodium 139 Potassium 4.0 Chloride 104 Carbon Dioxide 30.0 Anion Gap 5 BUN 11 Creatinine 1.21 Estim Creat Clear Calc 46.14 Est GFR (MDRD) Af Amer 75 Est GFR (MDRD) Non-Af 62 BUN/Creatinine Ratio 9.1 L Glucose 99 Calcium 9.1 Urine Color Yellow Urine Clarity Clear Urine pH 6.5 Ur Specific [place] 1.005 Urine Protein Negative Urine Glucose (UA) Normal Urine Ketones Negative Urine Occult Blood 10 H Urine Nitrite Negative Urine Bilirubin Negative Urine Urobilinogen Normal Ur Leukocyte Esterase Negative Urine RBC 0-5 SEEN Urine WBC 0 SEEN Ur Squamous Epith Cells 0-5 SEEN Urine Bacteria 0 SEEN Urine Mucus 0 SEEN - Medical Decision Making Labs fairly unremarkable, but given his history of diverticulitis CT was obtained, it does show mild sigmoid diverticulitis without surgical complication. He is feeling better after morphine. He was given IV Flagyl and Cipro and discharged on both for 1 week, advised to follow-up or return if worse. He is comfortable with that plan. ED Disposition - Plan for ED Patient: Disposition: Home or Assisted Living Diagnosis: Acute diverticulitis Instructions: Diverticulitis Prescriptions: Ciprofloxacin [Cipro] 500 mg PO BID #20 tab Transmission Status: Pending to [facility] metroNIDAZOLE [Flagyl] 500 mg PO BID #20 tab Transmission Status: Pending to [facility] Hydrocodone Bitart/Apap 5-325 [[place] 5MG-325MG] 1 tablet PO Q6H PRN PRN 3 Days #10 tablet PRN Reason: Pain Transmission Status: Received by [facility] Referrals: Roberto Mullen Chi, MD [Primary Care Provider] - 3-5 Days
[2019-05-22] MEDS: 0.9% Normal Saline 1,000 ML 999 ML IV (19:59)
[2019-05-22] MEDS: Morphine 4 MG/ML Syringe IV (20:00)
[2019-05-22] MEDS: Ciprofloxacin 400 MG/200 ML BAG 200 MG IV (22:09)
[2019-05-22 22:27] VITALS: BP 170/86; PULSE 79; RESP 16; O2SAT 97
[2019-05-22] MEDS: metroNIDAZOLE 500 MG/100 ML BAG 100 MG IV (23:24)
[2019-05-23 00:45] VITALS: BP 155/77; PULSE 74; RESP 16; O2SAT 97
== END 2019-05-23 00:46 | disposition home or self-care (01) ==
PROVIDERS: Emergency Provider Emergency Medicine; Family Provider Family Medicine Geriatric Medicine; PCP Family Medicine Geriatric Medicine
DX: K57.92 Diverticulitis of intestine, part unspecified, without perforation or abscess without bleeding (principal); E78.00 Pure hypercholesterolemia, unspecified; F41.9 Anxiety disorder, unspecified; I10 Essential (primary) hypertension; K21.9 Gastro-esophageal reflux disease without esophagitis; K59.09 Other constipation; Z79.01 Long term (current) use of anticoagulants; Z87.442 Personal history of urinary calculi; Z87.891 Personal history of nicotine dependence
CPT/HCPCS: 74177; 80048; 81001; 85025; 96361; 96365; 96367; 96375; 99283; J7030; Q9967; A4216; J0744

== ENCOUNTER 2019-06-27 10:03 | Emergency (ER) | payer MEDICARE, OTHER, SELFPAY ==
[2019-06-27 10:04] VITALS: BP 118/63; PULSE 82; RESP 17; TEMP 36.7; O2SAT 96; BMI 25.3
--- NOTE | 2019-06-27 10:16 | CT_ITS ---
STUDY: CT ABDOMEN AND PELVIS WITH CONTRAST REASON FOR EXAM: Male, 78 years old. Left lower quadrant pain. RADIATION DOSAGE (If Supplied By Facility): CTDIvol = ( 13.54 ) mGy, DLP = ( 875.49 ) mGycm TECHNIQUE: Transaxial images were obtained from the dome of the diaphragm to the symphysis pubis without oral contrast. 100 ml of 100mL Isovue-300 contrast was administered. Sagittal and coronal images were reconstructed. Individualized dose optimization techniques were used for this CT. COMPARISON: 05/22/2019. FINDINGS: The visualized lung bases are clear. The visualized portions of the heart and pericardium are within normal limits. There are no calcified gallstones present. The liver is within normal limits. There are no suspicious hepatic lesions. The spleen is normal in size. The pancreas is within normal limits. The adrenal glands are within normal limits. There is a stable 9 mm nonobstructing stone in the collecting system of the left kidney. There are no obstructing renal or ureteral stones. There is no hydronephrosis. There is a stable simple cyst in the right kidney. Normal visualized stomach. There is no bowel obstruction or inflammation. There are colonic diverticula without evidence of diverticulitis. The patient is status post appendectomy. The aorta is normal in caliber. Again noted are atherosclerotic calcifications in the aorta. There is no abdominal or pelvic free air, free fluid, fluid collection or lymphadenopathy. There are no destructive osseous lesions. CT/Abdomen/Pelvis W IV Cont ONLY IMPRESSION: No acute abdominal or pelvic pathology. Electronically Signed: Bhavesh Sandra, at 11:44 EDT Tel , Service support ,
--- NOTE | 2019-06-27 10:23 | ED.VISSUMM ---
- ER Visit Summary Date of Service: 06/27/19 Chief Complaint: Abdominal pain History of Present Illness: The patient is a 78 M presents with 2 days of left lower quadrant abdominal pain. Patient states that on Friday he began to have some periumbilical discomfort it seemed to move the left lower quadrant. He notes urinary frequency but states that that is not unusual for him. He describes the pain as burning. He has not had a bowel movement since evening. He states that that is actually not bad atypical for him. He has a colonoscopy scheduled for Friday with Dr. Hopkins. He states that he has the colonoscopy scheduled because 1 month ago he was diagnosed with diverticulitis and he has intermittently had blood in his stool. He has not had any blood recently. No fevers. Physical Examination: Afebrile vital signs are stable Gen: Well-nourished well-developed Head: Normocephalic atraumatic Eyes: Perrl EOMI ENT: TMs clear no rhinorrhea moist mucous membranes Neck: Supple no lymphadenopathy no JVD nontender CVS: Regular rate rhythm no murmurs normal S1-S2 Respiratory: No distress clear to auscultation bilaterally chest nontender Abdomen: Soft tender palpation left lower quadrant without guarding or rebound nondistended normal bowel sounds no masses Back: Nontender Extremity: Nontender no edema Skin: Normal color no rash Neuro: alert orientated ?3 CN II-XII intact normal strength sensation Psych: Normal affect normal mood Test Results: CBC and CMP showed a glucose of 133. Urinalysis 10-[address] abdomen pelvis did not demonstrate any obvious pathology to explain the patient's pain. Emergency Department Course and Treatment: At this point I do not see a clear cause to his pain. He has a colonoscopy scheduled on Friday. Return if worsening fever or concerns. We also talked the possibility of shingles given that its of burning pain. He is to monitor for any rash in the area Impression: 1. Acute abdominal pain This note was generated with [employer] dictation software. It may contain incorrect words, spelling, and punctuation that were not noted in review of the chart prior to signing ED Disposition - Plan for ED Patient: Disposition: Home or Assisted Living Instructions: ABDOMINAL PAIN, Unkown Cause, (Male) Referrals: Roberto Mullen Chi, MD [Primary Care Provider] - As Needed
[2019-06-27] MEDS: 0.9% Normal Saline 1,000 ML 1000 ML IV (10:34)
[2019-06-27 10:39] LABS: Absolute Lymphocyte Count 2.63 X10^3/uL (0.83-4.51); Basophil# 0.08 X10^3/uL; Basophil% 1.1 % (0-1); Eosinophil# 0.18 X10^3/uL; Eosinophils% 2.4 % (0-5); Hematocrit 45.3 % (40-54); Hemoglobin 15.4 g/dL (13.0-16.5); Lymphocyte # 2.63 X10^3/ul (4.0); Lymphocyte % 34.7 % (19-41); Mean Corpuscular Hgb 31.4 pg (27.0-32.0); Mean Corpuscular Volume 92.4 fL (80-94); Mean Platelet Vol. 8.5 fl (6.2-12.0); Monocyte# 0.67 X10^3/uL; Monocyte% 8.8 % (0-10); NRBC Flagged by Analyzer 0 % (0-5); Neutrophil % 52.6 % (47-70); Platelet Count 251 K/mm3 (150-450); White Blood Count 7.6 K/mm3 (4.4-11.0)
[2019-06-27 10:56] LABS: ALB/GLOB Ratio 0.9 RATIO (0.9-2.4); AST(SGOT) 25 U/L (15-37); Alanine Aminotransfer ALT/SGPT 20 U/L (16-61); Albumin, Serum 3.3 g/dL (3.2-5.0); Alkaline Phosphatase 70 U/L (45-117); Anion Gap 7 (5-15); BUN 10 mg/dL (7-18); BUN/Creat Ratio 8.4 RATIO (10-20); Calcium,Total 9.3 mg/dL (8.5-10.1); Chloride 106 mmol/L (98-107); Creatinine, Serum 1.19 mg/dL (0.70-1.30); EST Glomerular Filtration Rate 63 mL/min (>60); Est Glom Filt Rate - Afr Amer 76 mL/min (>60); Estimated Creatinine Clearance 46.91 ml/min; Globulin 3.8 g/dL (2.2-4.2); Glucose 133 mg/dL (74-106); Potassium 4.2 mmol/L (3.5-5.1); Protein, Total 7.1 g/dL (6.4-8.2); Sodium Level 141 mmol/L (136-145)
[2019-06-27 11:07] LABS: Bacteria 0 SEEN /hpf (None Seen); Mucous, Urine 0 SEEN /hpf (<or=2+); Squamous Epithelial Cells - UA 0 SEEN /hpf (0-5); White Blood Cells 0 SEEN /hpf (0-5)
[2019-06-27 11:08] LABS: Color, Urine Yellow (Yellow); Glucose, Dipstick Normal (Normal); Ketone-Dipstick Negative (Negative); Leukocyte Esterase-Dipstick Negative /ul (Negative); Nitrite-Dipstick Negative (Negative); Occult Blood-Urine 150 /ul (Negative); Protein-Dipstick Negative (Negative); Specific Gravity, Urine 1.005 (1.002-1.030); Urine Bilirubin Dipstick Negative (Negative); Urine Clarity Clear (Clear); Urine Urobilinogen Normal (Normal)
[2019-06-27 11:23] LABS: Red Blood Cells-Urine 10-25 SEEN /hpf (0-5)
[2019-06-27 12:23] VITALS: PULSE 74; RESP 16; O2SAT 98
== END 2019-06-27 12:26 | disposition home or self-care (01) ==
PROVIDERS: Emergency Provider Emergency Medicine; Family Provider Family Medicine Geriatric Medicine; PCP Family Medicine Geriatric Medicine
DX: R10.9 Unspecified abdominal pain (principal); R35.0 Frequency of micturition; I10 Essential (primary) hypertension; E78.00 Pure hypercholesterolemia, unspecified; K21.9 Gastro-esophageal reflux disease without esophagitis; Z87.442 Personal history of urinary calculi; Z87.891 Personal history of nicotine dependence
CPT/HCPCS: 74177; 80053; 81001; 85025; 96360; 99283; J7030; Q9967; A4216

== ENCOUNTER 2019-10-26 20:00 | Emergency (ER) | payer MEDICARE, OTHER, SELFPAY ==
[2019-10-26 20:01] VITALS: BP 150/80; PULSE 77; RESP 17; TEMP 36.8; O2SAT 96; BMI 26.3
--- NOTE | 2019-10-26 20:16 | CT_ITS ---
STUDY: CT ABDOMEN AND PELVIS WITH CONTRAST REASON FOR EXAM: Male, 79 years old. LEFT SIDED ABD PAIN RADIATION DOSAGE (If Supplied By Facility): CTDIvol = ( 13.95 ) mGy, DLP = ( 612.00 ) mGycm TECHNIQUE: Transaxial images were obtained from the dome of the diaphragm to the symphysis pubis without oral contrast. IV 100mL Isovue-300 was administered. Sagittal and coronal images were reconstructed. Individualized dose optimization techniques were used for this CT. COMPARISON: 06/27/19. FINDINGS: The visualized lung bases are unremarkable. The visualized portions of the heart are within normal limits. Normal liver. Normal gallbladder and extrahepatic biliary system. Normal spleen. Normal pancreas. Normal bilateral adrenal glands. Several small cysts are identified within the right kidney. There is a 9 mm calculus within the ureteropelvic junction with mild associated dilatation of the renal pelvis, this is migrated downward slightly compared to the prior examination. There is nonspecific wall thickening of the gastric outlet/proximal duodenum. Normal small intestine. There is diverticulosis, with thickening of the colon wall, and pericolonic inflammation changes consistent with acute diverticulitis. There are surgical clips in the region of the appendix consistent with a prior appendectomy. There is diffuse atherosclerotic calcification of the abdominal aorta, without a demonstrated aneurysm. Normal inferior vena cava. Normal retroperitoneum. Normal urinary bladder. There is enlargement of the prostate gland. Normal abdominal wall. There are diffuse degenerative changes of the visualized lumbar spine. CT/Abdomen/Pelvis W IV Cont ONLY IMPRESSION: Acute diverticulitis of the descending colon. Nonspecific wall thickening of the distal stomach/proximal duodenum unchanged from prior. Reidentified 9 mm stone in the left renal pelvis with mild associated dilatation of the left renal pelvis. Electronically Signed: Duy Garcia, at 21:56 EST Tel , Service support ,
[2019-10-26] MEDS: Ondansetron 4 MG/2 ML Vial IV (20:30)
[2019-10-26] MEDS: Morphine 4 MG/ML Syringe IV ×2 (20:30→22:48)
--- NOTE | 2019-10-26 20:44 | ED.VISSUMM ---
- ER Visit Summary Date of Service: 10/26/19 Chief Complaint: Abdominal pain History of Present Illness: The patient is a [address] Mullen. He reports he has left lower quadrant abdominal pain began 2 days ago. Is gradually gotten worse. Is a sharp pain is 8 out of 10 at worst and 5-10 currently. Is worsened by movement or deep breaths. Is relieved by remaining still. Is taken tramadol without relief. He denies any nausea, vomiting, or diarrhea. His last bowel was 2 days ago. Typically he goes twice a week. He denies any dysuria, frequency, or hematuria. Reports this is similar to when he had diverticulitis in the past. He denies any fever or chills. Physical Examination: Vitals: Stable. Afebrile. General: Well-nourished and well-developed. Head: Normocephalic atraumatic. Neck: Supple, no lymphadenopathy. No JVD. Nontender. Cardiovascular: Regular rate and rhythm. No murmurs. Respiratory: No respiratory distress. Clear to auscultation bilaterally. Abdominal: Soft, moderate left lower quadrant tenderness to palpation, nondistended, normal bowel sounds. No guarding, rebound, or peritoneal signs. Back: Nontender. Extremities: Nontender, no edema. Skin: Normal color, no rash. Neurologic: Alert and oriented ?3. Cranial nerves II through XII are intact. Normal strength and sensation. Psych: Normal affect. Test Results: CBC shows a white count of 12.3. Chem-7 shows a glucose of 108. UA is negative. Clinical Impression(s) from Imaging Studies Abdomen/Pelvis CT 10/26/19 20:16 IMPRESSION: Acute diverticulitis of the descending colon. Nonspecific wall thickening of the distal stomach/proximal duodenum unchanged from prior. Reidentified 9 mm stone in the left renal pelvis with mild associated dilatation of the left renal pelvis. Electronically Signed: Duy Garcia, at 21:56 EST Tel , Service support , Emergency Department Course and Treatment: Patient had an IV placed. He was given a 500 cc bolus of normal saline. He was given morphine and Zofran IV. He is resting more comfortably. Patient was treated with Cipro and Flagyl p.o. Treatment Plan: Patient will be discharged with Cipro, Flagyl, [place], and Colace. Instructed to follow-up with his primary care physician 1 week for another exam. Return to the emergency department for any worsening symptoms. Disposition: To home in improved and stable condition. Impression: 1. Diverticulitis. This note was generated with [employer] dictation software. It may contain incorrect words, spelling, and punctuation that were not noted in review of the chart prior to signing ED Disposition - Plan for ED Patient: Instructions: Diverticulitis Prescriptions: Ciprofloxacin [Cipro] 500 mg PO BID #20 tablet Docusate Sodium [Colace] 100 mg PO DAILY #20 capsule metroNIDAZOLE [Flagyl] 500 mg PO Q8H #30 tablet Hydrocodone Bitart/Apap 5-325 [[place] 5MG-325MG] 1 tablet PO Q4H PRN PRN 2 Days #10 tablet PRN Reason: Pain Referrals: Roberto Mullen Chi, MD [Primary Care Provider] - 1 Week
[2019-10-26 20:56] LABS: Absolute Neutrophil Count 7.8 X10^3/uL (2.0-7.7); Basophil# 0.07 X10^3/uL; Basophil% 0.6 % (0-1); Eosinophil# 0.21 X10^3/uL; Eosinophils% 1.7 % (0-5); Hematocrit 44.7 % (40-54); Hemoglobin 14.6 g/dL (13.0-16.5); Lymphocyte % 24.3 % (19-41); Mean Corp Hgb Conc 32.7 g/dL (32-36); Mean Corpuscular Hgb 30.2 pg (27.0-32.0); Mean Corpuscular Volume 92.5 fL (80-94); Mean Platelet Vol. 8.5 fl (6.2-12.0); Monocyte# 1.25 X10^3/uL; Monocyte% 10.1 % (0-10); NRBC Flagged by Analyzer 0 % (0-5); Neutrophil # 7.76 X10^3/uL (2.7-7.7); Neutrophil % 62.9 % (47-70); Platelet Count 253 K/mm3 (150-450); RBC Distribution Width CV 13.2 % (11.6-14.6); RBC Distribution Width SD 45.1 fl (35.1-43.9); Red Blood Count 4.83 M/mm3 (4.6-6.2); White Blood Count 12.3 K/mm3 (4.4-11.0)
[2019-10-26 21:07] LABS: Anion Gap 7 (5-15); BUN 16 mg/dL (7-18); BUN/Creat Ratio 12.3 RATIO (10-20); Calcium,Total 8.9 mg/dL (8.5-10.1); Chloride 106 mmol/L (98-107); EST Glomerular Filtration Rate 57 mL/min (>60); Est Glom Filt Rate - Afr Amer 69 mL/min (>60); Estimated Creatinine Clearance 40.74 ml/min; Glucose 108 mg/dL (74-106); Potassium 3.7 mmol/L (3.5-5.1); Sodium Level 140 mmol/L (136-145)
[2019-10-26 21:52] LABS: Bacteria 0 SEEN /hpf (None Seen); Mucous, Urine 0 SEEN /hpf (<or=2+); Squamous Epithelial Cells - UA 0 SEEN /hpf (0-5); White Blood Cells 0 SEEN /hpf (0-5)
[2019-10-26 22:02] LABS: Color, Urine Yellow (Yellow); Glucose, Dipstick Normal (Normal); Ketone-Dipstick Negative (Negative); Leukocyte Esterase-Dipstick Negative /ul (Negative); Nitrite-Dipstick Negative (Negative); Occult Blood-Urine 25 /ul (Negative); Protein-Dipstick Negative (Negative); Specific Gravity, Urine 1.005 (1.002-1.030); Urine Bilirubin Dipstick Negative (Negative); Urine Clarity Sl. Cloudy (Clear); Urine Urobilinogen Normal (Normal); Urine pH 6.5 (5.0 - 8.0)
[2019-10-26 22:11] VITALS: BP 196/85; PULSE 86; RESP 16; TEMP 36.6; O2SAT 95
[2019-10-26 22:29] LABS: Red Blood Cells-Urine 0-5 SEEN /hpf (0-5)
[2019-10-26] MEDS: metroNIDAZOLE 500 MG Tablet PO (22:48)
[2019-10-26] MEDS: Ciprofloxacin 500 MG Tablet PO (22:48)
[2019-10-26 22:53] VITALS: BP 150/71; PULSE 83; RESP 18; TEMP 36.9; O2SAT 96
== END 2019-10-26 22:57 | disposition home or self-care (01) ==
LOC: ED 20:34
PROVIDERS: Emergency Provider Emergency Medicine; PCP Family Medicine Geriatric Medicine
DX: R10.9 Unspecified abdominal pain (principal); K57.32 Diverticulitis of large intestine without perforation or abscess without bleeding; Z87.442 Personal history of urinary calculi; Z86.711 Personal history of pulmonary embolism
CPT/HCPCS: 74177; 80048; 81001; 85025; 96374; 96375; 96376; 99284; J7040; Q9967; A4216; J2405

== ENCOUNTER → 2019-11-19 10:35 | Outpatient (CLI) | payer MEDICARE, OTHER, SELFPAY ==
[2019-10-26 20:01] VITALS: BMI 26.3
[2019-11-19 13:08] LABS: Hematocrit 48.2 % (40-54); Hemoglobin 15.8 g/dL (13.0-16.5); Mean Corp Hgb Conc 32.8 g/dL (32-36); Mean Corpuscular Hgb 30.7 pg (27.0-32.0); Mean Corpuscular Volume 93.6 fL (80-94); Mean Platelet Vol. 9.2 fl (6.2-12.0); Platelet Count 254 K/mm3 (150-450); RBC Distribution Width CV 13.1 % (11.6-14.6); RBC Distribution Width SD 44.7 fl (35.1-43.9); Red Blood Count 5.15 M/mm3 (4.6-6.2)
[2019-11-19 13:13] LABS: Albumin, Serum 3.6 g/dL (3.2-5.0); BUN 14 mg/dL (7-18); BUN/Creat Ratio 10.5 RATIO (10-20); Calcium,Total 9.3 mg/dL (8.5-10.1); Chloride 106 mmol/L (98-107); Creatinine, Serum 1.33 mg/dL (0.70-1.30); EST Glomerular Filtration Rate 55 mL/min (>60); Est Glom Filt Rate - Afr Amer 67 mL/min (>60); Glucose 91 mg/dL (74-106); Phosphorus 3.2 mg/dL (2.5-4.9); Potassium 3.7 mmol/L (3.5-5.1); Sodium Level 141 mmol/L (136-145)
[2019-11-19 13:20] LABS: Color, Urine Yellow (Yellow); Glucose, Dipstick Normal (Normal); Ketone-Dipstick Negative (Negative); Leukocyte Esterase-Dipstick Negative /ul (Negative); Nitrite-Dipstick Negative (Negative); Occult Blood-Urine 150 /ul (Negative); Protein-Dipstick 30 mg/dl (Negative); Urine Bilirubin Dipstick Negative (Negative); Urine Clarity Clear (Clear); Urine Urobilinogen 4 mg/dl (Normal)
[2019-11-19 13:27] LABS: PTHIN 140.2 pg/mL (18.4-80.1)
[2019-11-19 13:59] LABS: Microalbumin:Creatinine Ratio 104.3 mg/g CRE (<30 mg/g CRE); Protein, Urine (Random) 32.8 mg/dL (<11.9); Protein:Creat Ratio 238 mg/g CRE (0-200)
[2019-11-23 11:19] LABS: Vitamin D,25 Hydroxy 24.3 ng/mL
== END ==
PROVIDERS: PCP Family Medicine Geriatric Medicine; Referring Provider Internal Medicine Nephrology; Visit Provider Internal Medicine Nephrology
DX: N18.3 Chronic kidney disease, stage 3 (moderate) (principal); Z13.0 Encounter for screening for diseases of the blood and blood-forming organs and certain disorders involving the immune mechanism; E55.9 Vitamin D deficiency, unspecified
CPT/HCPCS: 36415; 80069; 81002; 82043; 82306; 82570; 83970; 84156; 85027

== ENCOUNTER → 2019-12-01 15:14 | Outpatient (CLI) | payer MEDICARE, OTHER, SELFPAY ==
[2019-12-01 17:22] LABS: Absolute Lymphocyte Count 1.97 X10^3/uL (0.83-4.51); Absolute Neutrophil Count 5.7 X10^3/uL (2.0-7.7); Basophil# 0.09 X10^3/uL; Eosinophil# 0.15 X10^3/uL; Eosinophils% 1.7 % (0-5); Hematocrit 45.6 % (40-54); Hemoglobin 15.2 g/dL (13.0-16.5); Lymphocyte # 1.97 X10^3/ul (4.0); Mean Corp Hgb Conc 33.3 g/dL (32-36); Mean Corpuscular Hgb 30.8 pg (27.0-32.0); Mean Corpuscular Volume 92.5 fL (80-94); Monocyte# 0.99 X10^3/uL; NRBC Flagged by Analyzer 0 % (0-5); Neutrophil # 5.74 X10^3/uL (2.7-7.7); Neutrophil % 64.1 % (47-70); Platelet Count 289 K/mm3 (150-450); RBC Distribution Width CV 12.7 % (11.6-14.6); RBC Distribution Width SD 43.5 fl (35.1-43.9); Red Blood Count 4.93 M/mm3 (4.6-6.2)
[2019-12-01 17:47] LABS: ALB/GLOB Ratio 0.8 RATIO (0.9-2.4); AST(SGOT) 19 U/L (15-37); Alanine Aminotransfer ALT/SGPT 24 U/L (16-61); Albumin, Serum 3.5 g/dL (3.2-5.0); Alkaline Phosphatase 73 U/L (45-117); Anion Gap 4 (5-15); BUN 14 mg/dL (7-18); Calcium,Total 9.1 mg/dL (8.5-10.1); Chloride 103 mmol/L (98-107); Creatinine, Serum 1.55 mg/dL (0.70-1.30); EST Glomerular Filtration Rate 46 mL/min (>60); Est Glom Filt Rate - Afr Amer 56 mL/min (>60); Globulin 4.3 g/dL (2.2-4.2); Glucose 97 mg/dL (74-106); Potassium 3.8 mmol/L (3.5-5.1); Protein, Total 7.8 g/dL (6.4-8.2); Sodium Level 138 mmol/L (136-145); Thyroid Stim Hormone (TSH) 0.77 uIU/mL (0.358-3.74); Uric Acid 6.8 mg/dL (3.5-7.2)
[2019-12-01 17:57] LABS: Vitamin D,25 Hydroxy 27.2 ng/mL
== END ==
PROVIDERS: PCP Family Medicine Geriatric Medicine; Visit Provider Family Medicine Geriatric Medicine
DX: E55.9 Vitamin D deficiency, unspecified (principal); I10 Essential (primary) hypertension; F52.8 Other sexual dysfunction not due to a substance or known physiological condition; M10.9 Gout, unspecified
CPT/HCPCS: 36415; 80053; 82306; 84403; 84443; 84550; 85025

== ENCOUNTER → 2020-03-13 10:39 | Outpatient (CLI) | payer MEDICARE, OTHER, SELFPAY ==
[2020-03-13 12:39] LABS: Color, Urine Yellow (Yellow); Glucose, Dipstick Normal (Normal); Ketone-Dipstick Negative (Negative); Leukocyte Esterase-Dipstick Negative /ul (Negative); Nitrite-Dipstick Negative (Negative); Occult Blood-Urine 150 /ul (Negative); Protein-Dipstick 30 mg/dl (Negative); Specific Gravity, Urine 1.025 (1.002-1.030); Urine Clarity Sl. Cloudy (Clear); Urine Urobilinogen 4 mg/dl (Normal)
[2020-03-13 12:40] LABS: Urine Bilirubin Dipstick 1 mg/dL (Negative)
[2020-03-13 12:42] LABS: Hematocrit 49.6 % (40-54); Hemoglobin 16.2 g/dL (13.0-16.5); Mean Corp Hgb Conc 32.7 g/dL (32-36); Mean Corpuscular Hgb 30.9 pg (27.0-32.0); Mean Corpuscular Volume 94.5 fL (80-94); Platelet Count 264 K/mm3 (150-450); RBC Distribution Width CV 13.1 % (11.6-14.6); RBC Distribution Width SD 45.2 fl (35.1-43.9); Red Blood Count 5.25 M/mm3 (4.6-6.2); White Blood Count 9.3 K/mm3 (4.4-11.0)
[2020-03-13 12:48] LABS: Albumin, Serum 3.7 g/dL (3.2-5.0); BUN 18 mg/dL (7-18); BUN/Creat Ratio 11.5 RATIO (10-20); Calcium,Total 8.9 mg/dL (8.5-10.1); Chloride 103 mmol/L (98-107); Creatinine, Serum 1.56 mg/dL (0.70-1.30); EST Glomerular Filtration Rate 46 mL/min (>60); Est Glom Filt Rate - Afr Amer 56 mL/min (>60); Glucose 100 mg/dL (74-106); PTHIN 103.3 pg/mL (18.4-80.1); Phosphorus 3.4 mg/dL (2.5-4.9); Potassium 3.6 mmol/L (3.5-5.1); Sodium Level 140 mmol/L (136-145)
[2020-03-13 12:53] LABS: Microalbumin:Creatinine Ratio 59.8 mg/g CRE (<30 mg/g CRE); Protein:Creat Ratio 163 mg/g CRE (0-200)
[2020-03-13 12:58] LABS: Vitamin D,25 Hydroxy 28.1 ng/mL
== END ==
PROVIDERS: PCP Family Medicine Geriatric Medicine; Referring Provider Internal Medicine Nephrology; Visit Provider Internal Medicine Nephrology
DX: Z13.0 Encounter for screening for diseases of the blood and blood-forming organs and certain disorders involving the immune mechanism (principal); E55.9 Vitamin D deficiency, unspecified; N18.3 Chronic kidney disease, stage 3 (moderate)
CPT/HCPCS: 36415; 80069; 81002; 82043; 82306; 82570; 83970; 84156; 85027

== ENCOUNTER → 2020-04-03 14:32 | Outpatient (CLI) | payer MEDICARE, OTHER, SELFPAY | PROVIDERS: PCP Family Medicine Geriatric Medicine; Referring Provider Nurse Practitioner Adult Health; Visit Provider Nurse Practitioner Adult Health | DX: R97.20 Elevated prostate specific antigen [PSA] (principal) | CPT/HCPCS: 36415; 84153 ==

== ENCOUNTER → 2020-05-16 15:15 | Outpatient (CLI) | payer MEDICARE, OTHER, SELFPAY ==
[2020-05-16 16:08] LABS: Absolute Lymphocyte Count 2.27 X10^3/uL (0.83-4.51); Absolute Neutrophil Count 5.7 X10^3/uL (2.0-7.7); Basophil# 0.07 X10^3/uL; Basophil% 0.8 % (0-1); Eosinophil# 0.11 X10^3/uL; Eosinophils% 1.2 % (0-5); Hematocrit 44.7 % (40-54); Hemoglobin 14.9 g/dL (13.0-16.5); Lymphocyte # 2.27 X10^3/ul (4.0); Lymphocyte % 25.3 % (19-41); Mean Corp Hgb Conc 33.3 g/dL (32-36); Mean Corpuscular Hgb 31.4 pg (27.0-32.0); Mean Corpuscular Volume 94.1 fL (80-94); Mean Platelet Vol. 8.9 fl (6.2-12.0); Monocyte# 0.76 X10^3/uL; Monocyte% 8.5 % (0-10); NRBC Flagged by Analyzer 0 % (0-5); Neutrophil # 5.73 X10^3/uL (2.7-7.7); Neutrophil % 63.8 % (47-70); Platelet Count 278 K/mm3 (150-450); RBC Distribution Width CV 12.4 % (11.6-14.6); RBC Distribution Width SD 42.7 fl (35.1-43.9); Red Blood Count 4.75 M/mm3 (4.6-6.2)
--- NOTE | 2020-05-16 16:31 | CT_ITS ---
STUDY: CT ABDOMEN AND PELVIS WITH AND WITHOUT CONTRAST REASON FOR EXAM: Male, 79 years old. GROSS HEMATURIA X 3-4 MON RADIATION DOSAGE (If Supplied By Facility): CTDIvol = ( 11.67 ) mGy, DLP = ( 957.44 ) mGycm TECHNIQUE: Transaxial images were obtained from the dome of the diaphragm to the symphysis pubis without oral contrast. IV 100mL Isovue-370 was administered. Sagittal and coronal images were reconstructed. Individualized dose optimization techniques were used for this CT. COMPARISON: 10/26/2019 FINDINGS: The visualized lung bases are unremarkable. The visualized portions of the heart are within normal limits. Normal liver. Normal gallbladder and extrahepatic biliary system. Normal spleen. Normal pancreas. Normal bilateral adrenal glands. 3.1 cm simple right renal cyst. Subcentimeter right inferior renal cyst. 5 mm nonobstructing stone in the left kidney. 11 mm nonobstructing stone in the left renal sinus. Normal visualized stomach. Normal small intestine. There are multiple colonic diverticula consistent with diverticulosis. Appendectomy. Normal abdominal aorta. Normal inferior vena cava. Normal retroperitoneum. Bladder wall thickening, correlate for cystitis. There is enlargement of the prostate gland. Normal abdominal wall. There are diffuse degenerative changes of the visualized lumbar spine. CT/CT Abd/Pelvis W/WO Contrast IMPRESSION: No evidence of enhancing renal mass. No evidence of acute obstructive uropathy. Prostatomegaly. Multiple nonobstructing stones on the left as described. Bladder wall thickening, correlate for cystitis. Electronically Signed: Stanislaw Landry MD at 20:14 EDT Tel , Service support ,
[2020-05-16 16:32] LABS: Vitamin D,25 Hydroxy 27.8 ng/mL
[2020-05-16 16:36] LABS: ALB/GLOB Ratio 0.9 RATIO (0.9-2.4); AST(SGOT) 14 U/L (15-37); Alanine Aminotransfer ALT/SGPT 19 U/L (16-61); Albumin, Serum 3.6 g/dL (3.2-5.0); Alkaline Phosphatase 71 U/L (45-117); Anion Gap 6 (5-15); BUN 14 mg/dL (7-18); BUN/Creat Ratio 8.9 RATIO (10-20); Calcium,Total 8.7 mg/dL (8.5-10.1); Chloride 103 mmol/L (98-107); Creatinine, Serum 1.57 mg/dL (0.70-1.30); EST Glomerular Filtration Rate 46 mL/min (>60); Est Glom Filt Rate - Afr Amer 55 mL/min (>60); Glucose 115 mg/dL (74-106); Potassium 3.7 mmol/L (3.5-5.1); Protein, Total 7.6 g/dL (6.4-8.2); Sodium Level 138 mmol/L (136-145); Thyroid Stim Hormone (TSH) 1.38 uIU/mL (0.358-3.74)
[2020-05-16 16:46] LABS: CREATININE FINGERSTICK 1.1 mg/dL (0.70-1.30); EGFR FINGERSTICK > 60.0000 mL/min (>60)
== END ==
PROVIDERS: PCP Family Medicine Geriatric Medicine; Referring Provider Nurse Practitioner Adult Health; Visit Provider Nurse Practitioner Adult Health
DX: I10 Essential (primary) hypertension (principal); R31.0 Gross hematuria; E55.9 Vitamin D deficiency, unspecified; F52.8 Other sexual dysfunction not due to a substance or known physiological condition
CPT/HCPCS: 36415; 74178; 80053; 82306; 84403; 84443; 85025; Q9967

== ENCOUNTER 2020-06-07 09:40 | Day surgery (SDC) | payer MEDICARE, OTHER, SELFPAY ==
[2020-06-07] VITALS (8 sets, daily range): BP systolic 141–196; BP diastolic 65–101; PULSE 73–86; RESP 16–18; TEMP 36.2–37.1; O2SAT 93–100; BMI 24.9
--- NOTE | 2020-06-07 10:03 | RAD_ITS ---
STUDY: X-RAY - ABDOMEN/PELVIS REASON FOR EXAM: Male, 79 years old. Pre op ESWL, kidney stone TECHNIQUE: Single AP view of the abdomen / pelvis. COMPARISON: None. FINDINGS: There is a moderate amount of colonic fecal material. There is a 1.4 cm x 1.3 cm calculus in the left renal pelvis. A small calculus is also seen in the lower pole calyx of the left kidney. Normal soft tissue structures. There are diffuse degenerative changes of the visualized lumbar spine. RAD/Abdomen Single View IMPRESSION: 1.4 cm x 1.3 cm calculus in the left renal pelvis. Small calculus in the lower pole calyx of the left kidney. Electronically Signed: Jerry Lewis, at 10:27 EDT , Service support ,
[2020-06-07] MEDS: Lactated Ringers 1,000 ML 100 ML IV (10:41)
--- NOTE | 2020-06-07 11:13 | PCM.HP.STD ---
Problem List (1) Left renal stone Status: Acute History of Present Illness Date of Admission: 06/07/20 Chief Complaint: left kidney The patient is a 79 year old male with a larger renal calculi plan for treatment of stone, patient has held his blood thinner. Past Medical History Past Medical History (Chronic Problems): Chronic Problems Diverticulosis (Chronic) Kidney stones (Chronic) Hypercholesteremia (Chronic) Anxiety (Chronic) GERD (gastroesophageal reflux disease) (Chronic) Barrets esophagus HTN (hypertension) (Chronic) Allergies prednisone Allergy (Verified 06/07/20 10:24) Other Home Medications: Ambulatory Orders Medication Instructions Recorded ALPRAZolam [Xanax] 0.5 mg PO TID PRN 04/02/14 Escitalopram Oxalate [Lexapro] 20 mg PO QHS 04/02/14 Apixaban [Eliquis] 5 mg PO BID 12/08/16 Omeprazole [Prilosec] 40 mg PO PRN PRN 12/08/16 Melatonin/Pyridoxine [Melatonin 5 5 mg PO QHS PRN 05/22/19 mg Tablet] Polyethylene Glycol 3350 [Miralax] 17 gm PO PRN PRN 05/22/19 Cholecalciferol (VIT D3) [Vitamin 1,000 unit PO DAILY 10/26/19 D] Ciprofloxacin [Cipro] 500 mg PO BID #10 tab 06/07/20 Oxycodone HCl/Acetaminophen 1 tablet PO Q4H PRN PRN 5 Days #20 06/07/20 [Percocet 5/325] tablet Surgical History: appendectomy Smoking Status: Former smoker Tobacco Use: Non-smoker - *Family History Maternal History Items: No pertinent history Review of Systems Constitutional: Denies: Chills, Fever, Weight Change HEENT: Denies: Head Aches, Sinus Congestion, Sinus Drainage Cardiovascular: Denies: Chest Pain, Palpitations Respiratory: Denies: Cough, Shortness of breath at rest, Sputum production Gastrointestinal: Denies: Abdominal Pain, Nausea, Vomiting Genitourinary: Denies: Dysuria Musculoskeletal: Denies: Joint Pain, Joint Tenderness Skin: Denies: Rash, Wounds Neurological: Denies: Numbness, Tingling, Focal weakness Psychiatric: Denies: Anxiety, Depression, Homicidal Ideations, Suicidal Ideations Hematologic/ Lymphatic: Denies: Easy Bruising, Easy Bleeding VTE Information - Inpt Only VTE Present on Admission: No Patient Problems: Active and Suspected Problems Left renal stone (Acute) - Physical Exam Vitals/I&O's: Vital Signs Temp Pulse Resp BP Pulse Ox 98.7 F 76 16 159/81 H 98 06/07/20 10:25 06/07/20 10:25 06/07/20 10:25 06/07/20 10:25 06/07/20 10:25 Oxygen Delivery Method Room Air Weight: 70 kg Body Mass Index (BMI) 24.9 General: Alert, Oriented x3, Cooperative HEENT: Atraumatic, PERRLA, EOMI, Normocephalic Neck: Supple, No JVD, Negative Carotid Bruits Lungs: Clear to auscultation, Normal air movement Cardiovascular: Regular rate, No murmurs Abdomen: Bowel Sounds Present, Soft, Non Tender Extremities: No edema, Capillary Refill Less than 3 Seconds Skin: No rashes, No breakdown Musculoskeletal: No Tenderness to Palpation of Joints or Extremities Neurological: Cranial nerves II-XII grossly intact Psych/Mental Status: Normal Affect, Appropriate Current Medications Acetaminophen (Tylenol) 650 mg PO Q4H PRN PRN PRN Reason: Pain Score 1-5/10 Hydrocodone Bitart/Acetaminophen ([place] 5mg-325mg) 1 - 2 tablet PO Q6H PRN PRN PRN Reason: Pain Score 1-5/10 Lactated Ringer's () 1,000 mls @ 100 mls/hr IV .Q10H JUAREZ Last Admin: 06/07/20 10:41 Dose: 100 mls/hr Documented by: Metoclopramide HCl (Reglan) 10 mg IV X1 PRN PRN Reason: NAUSEA/VOMITING Ondansetron HCl (Zofran) 4 mg IV X1 PRN PRN Reason: NAUSEA Assessment/Plan All Active Problems Left renal stone (Acute) 79 yo male with stone in left kidney plan for left ESwl and stent L
--- NOTE | 2020-06-07 11:15 | PCM.DC.URO ---
Discharge Diet: No Restrictions, Light diet - advance as tolerated Discharge Activity: Return to Normal Activity, May Not Drive - for 2 days. Additional Activity Instructions:: Please be aware that pain medications may cause nausea. You should typically eat light foods as you take your pain medication. Pain medication may cause constipation, if this is a problem for you, please discuss with your doctor. Call your doctor if your incision/area has: Sudden Increased Bleeding Call your doctor if you observe: Fever of 101 or Higher Suture Line Care: Avoid Pulling/Pushing, Avoid Pinching/Bending Allergies/Adverse Reactions: Allergies prednisone Allergy (Verified 06/07/20 10:24) Other Medications to take at Discharge ALPRAZolam [Xanax] 0.5 mg PO TID PRN 04/02/14 Escitalopram Oxalate [Lexapro] 20 mg PO QHS 04/02/14 Apixaban [Eliquis] 5 mg PO BID 12/08/16 Omeprazole [Prilosec] 40 mg PO PRN PRN 12/08/16 Melatonin/Pyridoxine [Melatonin 5 mg Tablet] 5 mg PO QHS PRN 05/22/19 Polyethylene Glycol 3350 [Miralax] 17 gm PO PRN PRN 05/22/19 Cholecalciferol (VIT D3) [Vitamin D] 1,000 unit PO DAILY 10/26/19 Ciprofloxacin [Cipro] 500 mg PO BID #10 tab 06/07/20 Oxycodone HCl/Acetaminophen [Percocet 5/325] 1 tablet PO Q4H PRN PRN 5 Days #20 tablet 06/07/20 The following prescriptions were given: Ciprofloxacin [Cipro] 500 mg PO BID #10 tab Transmission Status: Pending to [facility] Oxycodone HCl/Acetaminophen [Percocet 5/325] 1 tablet PO Q4H PRN PRN 5 Days #20 tablet PRN Reason: Pain Transmission Status: Sent to [facility] Orders to be completed after discharge: Abdomen Single View [RAD] Time Frame: 06/07/20, Facility: [facility], Location: [facility] Primary Care Physician: Roberto Mullen Chi, MD [Primary Care Provider] - Test Results: Test results from this visit will be discussed in further detail at your follow-up appointment, if applicable. Please Follow Up With: Jonas Hess MD When: in 2 weeks, please call to make an appointment.
[2020-06-07] MEDS: Cefazolin 2 GM in 0.9% Normal Saline 100 ML IV (11:35)
--- NOTE | 2020-06-07 12:48 | OP.PCM_ITS ---
Problem List (1) Left renal stone Status: Acute Report of Operation Date of Procedure: 06/07/20 Pre-Operative Diagnosis: Left renal calculi 13mm Post-Operative Diagnosis: Same Surgery/Procedure Performed:: Cystoscopy left stent placement left extracorporeal shockwave lithotripsy Description of Surgical Findings:: 79-year-old male was taken back to the operating room after smooth induction of general anesthesia he was placed in dorsolithotomy position penis and testicles were prepped and draped in usual sterile fashion went into the bladder with a 21 [place] rigid cystourethroscope the entire length of the urethra was normal the prostate was slightly enlarged a high bladder neck once inside the bladder identified the left ureteral orifice cannulated this with a wire advanced a wire up into the kidney the wire then coiled in the kidney and over the wire advanced a stent is a 6 [place] by 26 cm stent once a stent was in good position pulled the wire and the stent: The kidney and bladder bladder in good position, after the stent was in good position. We then proceeded with shockwave lithotripsy we started aiming at the stone we made sure the stone was the F2 focal point during her treatment monitoring the stone with fluoroscopy. A total of 3000 shocks were delivered to the stone at a rate of 90/min ranging between 5 to 7 kV at the end of the treatment cycle the stone it broken up really well very likely that is a successful treatment possible he may need another set second treatment for any fragments but at this point we left a stent in place working to see him back in 2 weeks with an x-ray and then plan to remove the stent after that. Type of Anesthesia:: General Drains: stent - Admit VTE Documentation VTE Present on Admission: No VTE Mechan Device Prophylaxis: SCD's
[2020-06-07] MEDS: Ketorolac 15 MG/ML Vial IV (13:06)
[2020-06-07] MEDS: HYDROcodone Bitartrate/Apap 5/325 Tablet PO (15:36)
== END 2020-06-07 16:05 | disposition home or self-care (01) ==
LOC: SDC 09:41 → AC 09:42
PROVIDERS: Anesthesiology; PCP Family Medicine Geriatric Medicine; Referring Provider Urology; Visit Provider Urology
PROC: (CPT 50590; principal; 2020-06-07 11:35)
DX: N20.0 Calculus of kidney (principal); R31.0 Gross hematuria; N40.1 Benign prostatic hyperplasia with lower urinary tract symptoms; E78.00 Pure hypercholesterolemia, unspecified; F41.9 Anxiety disorder, unspecified; I10 Essential (primary) hypertension; K21.9 Gastro-esophageal reflux disease without esophagitis; Z79.01 Long term (current) use of anticoagulants; Z87.891 Personal history of nicotine dependence; Z87.442 Personal history of urinary calculi
CPT/HCPCS: 00873; 50590; 52332; 74018; 87635; C9803; J7120; C1769; C2617; J2405; U0003

== ENCOUNTER → 2020-06-20 14:29 | Outpatient (CLI) | payer MEDICARE, OTHER, SELFPAY ==
[2020-06-07 10:25] VITALS: BMI 24.9
--- NOTE | 2020-06-20 14:30 | RAD_ITS ---
STUDY: X-RAY - ABDOMEN/PELVIS REASON FOR EXAM: Male, 79 years old. Left kidney stone with stent TECHNIQUE: Single AP view of the abdomen / pelvis. COMPARISON: Comparison is made with prior study of 06/07/2020. FINDINGS: There is an unremarkable bowel gas pattern. A left-sided double-J stent catheter is in situ. Calcifications are seen in the lower pole calyx of the left kidney. The previously seen 1.3 cm x 1.4 cm stone in the region of the left renal pelvis is not seen at this time. Normal soft tissue structures. There are diffuse degenerative changes of the visualized lumbar spine. RAD/Abdomen Single View IMPRESSION: Status post left double J stent catheter insertion. The previously seen calculus in the region of the left renal pelvis is not seen at this time. Residual calculi are seen in the lower pole calyx of the left kidney. Electronically Signed: Jerry Lewis, at 14:52 EDT , Service support ,
== END ==
PROVIDERS: PCP Family Medicine Geriatric Medicine; Referring Provider Urology; Visit Provider Urology
DX: N20.0 Calculus of kidney (principal)
CPT/HCPCS: 74018

== ENCOUNTER → 2020-09-18 14:31 | Outpatient (CLI) | payer MEDICARE, OTHER, SELFPAY ==
[2020-06-07 10:25] VITALS: BMI 24.9
--- NOTE | 2020-09-18 14:40 | RAD_ITS ---
STUDY: X-RAY - PELVIS AND LEFT HIP REASON FOR EXAM: Male, 80 years old. Left hip pain, low back pain, NKI TECHNIQUE: 3 views of the pelvis and hip. COMPARISON: None. FINDINGS: There is a non-specific bowel gas pattern. Normal visualized soft tissue structures. Normal bilateral iliac wings, sacroiliac joints and visualized sacrum. Normal bilateral superior and inferior pubic rami. Normal pubic symphysis. Normal bilateral ischial tuberosities. Normal visualized femoral head. There is osteoarthritic spur formation of the acetabular rim. There is moderate articular joint space narrowing of the hip. The joint changes of the right hip joint as well. RAD/HIP, UNI W/ Pelvis 2-3 Views IMPRESSION: Osteoarthritis of both hip joints. Electronically Signed: Jerry Lewis, at 14:47 EST , Service support ,
--- NOTE | 2020-09-18 14:40 | RAD_ITS ---
STUDY: X-RAY - LUMBAR SPINE REASON FOR EXAM: Male, 80 years old. Left hip pain, low back pain, NKI TECHNIQUE: 3 view(s) of the lumbar spine were obtained. COMPARISON: None FINDINGS: There is straightening of the normal lumbar lordosis. There is no substantial scoliosis. There is a normal alignment of the vertebrae. There is multilevel endplate spondylosis of the lumbar vertebrae. There is multi-level degenerative disc disease with multi-level disc space narrowing. Facet joint osteoarthritis. There is atherosclerotic calcification of the abdominal aorta without a demonstrated aneurysm. RAD/Lumbar Spine 2 or 3 Views IMPRESSION: Degenerative changes of the spine, as detailed above. Loss of the normal lumbar lordosis. Electronically Signed: Jerry Lewis, at 14:48 EST , Service support ,
== END ==
PROVIDERS: PCP Family Medicine Geriatric Medicine; Referring Provider Family Medicine Geriatric Medicine; Visit Provider Family Medicine Geriatric Medicine
DX: M54.5 Low back pain (principal); M25.559 Pain in unspecified hip
CPT/HCPCS: 72100; 73502

== ENCOUNTER → 2020-11-21 15:12 | Outpatient (CLI) | payer MEDICARE, OTHER, SELFPAY ==
[2020-06-07 10:25] VITALS: BMI 24.9
[2020-11-21 17:15] LABS: Absolute Lymphocyte Count 2.51 X10^3/uL (0.83-4.51); Basophil# 0.06 X10^3/uL; Basophil% 0.6 % (0-1); Eosinophil# 0.09 X10^3/uL; Eosinophils% 0.9 % (0-5); Hematocrit 43.3 % (40-54); Hemoglobin 14.5 g/dL (13.0-16.5); Lymphocyte # 2.51 X10^3/ul (4.0); Lymphocyte % 26.3 % (19-41); Mean Corp Hgb Conc 33.5 g/dL (32-36); Mean Corpuscular Hgb 32.2 pg (27.0-32.0); Monocyte# 0.86 X10^3/uL; NRBC Flagged by Analyzer 0 % (0-5); Neutrophil # 5.97 X10^3/uL (2.7-7.7); Neutrophil % 62.7 % (47-70); Platelet Count 286 K/mm3 (150-450); RBC Distribution Width CV 13.1 % (11.6-14.6); Red Blood Count 4.51 M/mm3 (4.6-6.2); White Blood Count 9.5 K/mm3 (4.4-11.0)
[2020-11-21 17:36] LABS: Vitamin D,25 Hydroxy 28.4 ng/mL
[2020-11-21 17:55] LABS: AST(SGOT) 13 U/L (15-37); Alanine Aminotransfer ALT/SGPT 18 U/L (16-61); Albumin, Serum 3.6 g/dL (3.2-5.0); Alkaline Phosphatase 62 U/L (45-117); Anion Gap 7 (5-15); BUN 24 mg/dL (7-18); BUN/Creat Ratio 15.7 RATIO (10-20); Calcium,Total 9.5 mg/dL (8.5-10.1); Chloride 105 mmol/L (98-107); Creatinine, Serum 1.53 mg/dL (0.70-1.30); EST Glomerular Filtration Rate 47 mL/min (>60); Est Glom Filt Rate - Afr Amer 57 mL/min (>60); Globulin 3.7 g/dL (2.2-4.2); Glucose 57 mg/dL (74-106); Potassium 3.6 mmol/L (3.5-5.1); Protein, Total 7.3 g/dL (6.4-8.2); Sodium Level 141 mmol/L (136-145); Uric Acid 6.1 mg/dL (3.5-7.2)
== END ==
PROVIDERS: PCP Family Medicine Geriatric Medicine; Visit Provider Family Medicine Geriatric Medicine
DX: I10 Essential (primary) hypertension (principal); E55.9 Vitamin D deficiency, unspecified; F52.8 Other sexual dysfunction not due to a substance or known physiological condition; M10.9 Gout, unspecified
CPT/HCPCS: 36415; 80053; 82306; 84403; 84443; 84550; 85025

== ENCOUNTER 2020-11-22 14:38 | Outpatient (RCR) | payer MEDICARE, OTHER, SELFPAY ==
[2020-06-07 10:25] VITALS: BMI 24.9
== END 2020-11-22 23:59 ==
LOC: IMMUN 14:38
PROVIDERS: PCP Family Medicine Geriatric Medicine; Visit Provider Family Medicine
DX: Z23 Encounter for immunization (principal)
CPT/HCPCS: 0011A; 0012A; 91301

== ENCOUNTER 2021-05-17 10:20 | Emergency (ER) | payer MEDICARE, OTHER, SELFPAY ==
[2021-05-17] VITALS (7 sets, daily range): BP systolic 150–169; BP diastolic 8–82; PULSE 21–888; RESP 15–104; TEMP 36.8–37.2; O2SAT 96–99; BMI 24.9
--- NOTE | 2021-05-17 10:41 | EDS_ITS ---
HPI History of Present Illness Chief Complaint: Weakness Informant: patient Narrative Narrative: Patient is a 80-year-old male who presents to the emergency department for cough, sore throat, low-grade fever and generalized weakness. His symptoms have been present over the past 3 days. He denies known sick contact. He has been vaccinated for Covid. His temperature has gotten up to 99. He has not been treating himself at home with anything. His cough has been occasionally productive of a white sputum. He denies significant shortness of breath. No chest pain. No abdominal pain or nausea/vomiting/diarrhea. He denies any headache or rashes. No unilateral weakness. The weakness is generalized. Patient does smoke cigarettes but has not been able to past week. [facility] Medical History (Updated 05/17/21 @ 13:[address] Abhinav Crandall DO) GERD (gastroesophageal reflux disease) Hypertension Home Medications alprazolam 0.5 mg PO TID PRN 04/02/14 [History Last Taken 06/07/20] escitalopram oxalate 20 mg PO QHS 04/02/14 [History Last Taken 04/01/14] Omeprazole [Prilosec] 40 mg PO PRN PRN 12/08/16 [History Last Taken Unknown] apixaban [Eliquis] 5 mg PO BID 12/08/16 [History Last Taken 06/02/20] melatonin-pyridoxine (vit B6) 5 mg PO QHS PRN 05/22/19 [History Last Taken Unknown] polyethylene glycol 3350 17 gm PO PRN PRN 05/22/19 [History Last Taken Unknown] cholecalciferol (vitamin D3) 1,000 unit PO DAILY 10/26/19 [History Last Taken Unknown] ciprofloxacin HCl 500 mg PO BID 05/17/21 [History Last Taken Unknown] Allergy/AdvReac Type Severity Reaction Status Date / Time prednisone Allergy Other Verified 05/17/21 10:22 Social History Smoking Status: Former smoker ROS ROS ED Constitutional Constitutional ED: Reports other Details: Low-grade subjective fevers Eyes Eyes: Denies change in vision ENT ENT ED: Reports sore throat; Denies ear pain, epistaxis or rhinorrhea Cardiovascular Cardiovascular: Denies chest pain or palpitations Respiratory/Chest Respiratory/Chest: Reports cough and sputum; Denies dyspnea or dyspnea on exertion Gastrointestinal Gastrointestinal: Denies abdominal pain, diarrhea, nausea or vomiting Genitourinary Genitourinary ED: Denies dysuria, hematuria or urinary frequency Musculoskeletal Musculoskeletal: Denies back pain or neck pain Integumentary Denies rash Neurologic Neurologic: Reports weakness; Denies dizziness or headache(s) EXAM Physical Exam Const Vital Signs: 05/17/21 10:22 05/17/21 10:24 05/17/21 10:25 Temperature 98.9 F 98.9 F Temperature Source Oral Oral Pulse Rate 21 L 21 L Respiratory Rate 104 H 104 H Respiratory Effort Normal Non-Labored Respiratory Pattern Normal Blood Pressure 164/8 H 164/8 H Blood Pressure Mean 60 60 Pulse Ox 99 99 Oxygen Delivery Method Room Air Room Air Room Air 05/17/21 11:24 05/17/21 12:00 05/17/21 13:00 Temperature 98.9 F 98.7 F 98.2 F Temperature Source Temporal Temporal Temporal Pulse Rate 85 82 84 Respiratory Rate 20 H 18 15 Respiratory Effort Respiratory Pattern Blood Pressure 169/71 H 150/73 H 166/82 H Blood Pressure Mean 103 98 110 Pulse Ox 97 97 98 Oxygen Delivery Method Room Air Room Air Room Air 05/17/21 13:30 Temperature Temperature Source Pulse Rate 888 H Respiratory Rate 15 Respiratory Effort Respiratory Pattern Blood Pressure 165/75 H Blood Pressure Mean Pulse Ox 98 Oxygen Delivery Method Positive well nourished and well developed General Appearance ED: well developed and NAD HEENT Reports normocephalic and head/scalp atraumatic Eyes PERRL and EOMs intact bilaterally Neck no lymphadenopathy and supple General: Negative for tenderness Chest Wall inspection of chest normal Resp normal respiratory effort and clear to auscultation bilaterally Auscultation: Negative for rales, rhonchi or wheezes Cardio regular rhythm and no murmurs Rate: other Other Details: Borderline tachycardic GI normal to inspection, nondistended, normoactive bowel sounds and non-tender Palpation: soft; Negative for guarding or rebound tenderness present Extremity normal to inspection General Extremety ED: Negative for edema or tenderness General Extremity: Negative for edema Neuro no sensory deficits noted Sensorium / Orientation: alert Motor Exam: strength 5/5 throughout Psych mental status grossly normal Skin no rashes or lesions noted MDM MDM MDM Narrative Medical decision making narrative: Patient presents the ED for generalized weakness, cough, subjective fevers and chills and sore throat. On arrival to the emergency department he is borderline tachycardic. He is afebrile. Satting 99% on room air. He is mildly hypertensive. Will check Covid swab and chest x- ray. Basic lab work being obtained. Patient's lab work did not reveal him to be anemic or have a high white blood cell count. No significant electrolyte disturbance. Creatinine is mildly elevated but actually down compared to his previous lab draw. Chest x-ray did not show any evidence of acute pneumonia. Covid test was negative. His PCP, Dr. Mullen wanted him to be admitted to the transitional care unit due to his generalized weakness and falls. The daughter is agreeable with this plan. Patient was initially hesitant but then agreed to this plan. He otherwise has remained stable throughout ED stay. Will transfer to the TCU at this time. Lab Data Labs: Laboratory Results - last 24 hr 05/17/21 05/17/21 05/17/21 11:45 11:45 11:45 WBC 9.3 RBC 4.74 Hgb 15.0 Hct 43.5 MCV 91.8 MCH 31.6 MCHC 34.5 RDW Std Deviation 40.6 RDW Coeff of Maritza 12.1 Plt Count MPV 9.5 Immature Gran % (Auto) 0.300 Neut % (Auto) 77.3 H Lymph % (Auto) 8.5 L Cross % (Auto) 12.3 H Eos % (Auto) 0.6 Baso % (Auto) 1.0 Absolute Neuts (auto) 7.2 Absolute Lymphs (auto) 0.79 L Nucleated RBC % 0 Platelet Estimate ADEQUATE Sodium 137 Potassium 3.9 Chloride 101 Carbon Dioxide 31.0 Anion Gap 5 BUN 18 Creatinine 1.37 H Estim Creat Clear Calc 38.03 Est GFR (MDRD) Af Amer 64 Est GFR (MDRD) Non-Af 53 L BUN/Creatinine Ratio 13.1 Glucose 96 Lactic Acid 1.1 Calcium 9.2 Radiography Diagnostic Testing: Radiology Impression Chest X-Ray 05/17/21 12:31 IMPRESSION: Hyperinflation. Lungs are clear. Electronically Signed: Jerry Lewis MD at 13:21 EDT , Service support , Discharge Plan Triage Chief Complaint: Weakness ED Provider: Abhinav Crandall Dx/Rx/DC Orders Clinical Impression: Generalized weakness, Bronchitis Prescriptions: No Action alprazolam 0.5 MG tablet 0.5 mg PO TID PRN (Reason: Anxiety) RF: 0 escitalopram oxalate 10 MG tablet 20 mg PO QHS RF: 0 Eliquis 5 MG tablet 5 mg PO BID RF: 0 Omeprazole [Prilosec] 40 MG capsule 40 mg PO PRN PRN (Reason: Indigestion) RF: 0 polyethylene glycol 3350 17 GM packet 17 gm PO PRN PRN (Reason: Constipation) RF: 0 melatonin-pyridoxine (vit B6) 1 EACH tablet 5 mg PO QHS PRN (Reason: Sleep) RF: 0 cholecalciferol (vitamin D3) 1,000 UNIT tablet 1,000 unit PO DAILY RF: 0 ciprofloxacin HCl 500 MG tablet 500 mg PO BID RF: 0 Primary Care Provider: Roberto Mullen Chi Referrals: Roberto Mullen Chi, MD [Primary Care Provider] - Disposition Disposition: Home, Self Care Discharge Date/Time: 05/17/21 13:46
[2021-05-17 12:04] LABS: Absolute Lymphocyte Count 0.79 X10^3/uL (0.83-4.51); Absolute Neutrophil Count 7.2 X10^3/uL (2.0-7.7); Basophil# 0.09 X10^3/uL; Eosinophil# 0.06 X10^3/uL; Eosinophils% 0.6 % (0-5); Hematocrit 43.5 % (40-54); Lymphocyte # 0.79 X10^3/ul (0.83-4.51); Lymphocyte % 8.5 % (19-41); Mean Corp Hgb Conc 34.5 g/dL (32-36); Mean Corpuscular Hgb 31.6 pg (27.0-32.0); Mean Corpuscular Volume 91.8 fL (80-94); Mean Platelet Vol. 9.5 fl (6.2-12.0); Monocyte# 1.14 X10^3/uL; Monocyte% 12.3 % (0-10); NRBC Flagged by Analyzer 0 % (0-5); Neutrophil # 7.15 X10^3/uL (2.7-7.7); Neutrophil % 77.3 % (47-70); POSITIVE COUNT YES; RBC Distribution Width CV 12.1 % (11.6-14.6); RBC Distribution Width SD 40.6 fl (35.1-43.9); Red Blood Count 4.74 M/mm3 (4.6-6.2); White Blood Count 9.3 K/mm3 (4.4-11.0)
[2021-05-17 12:16] LABS: Anion Gap 5 (5-15); BUN 18 mg/dL (7-18); BUN/Creat Ratio 13.1 RATIO (10-20); Calcium,Total 9.2 mg/dL (8.5-10.1); Chloride 101 mmol/L (98-107); Creatinine, Serum 1.37 mg/dL (0.70-1.30); EST Glomerular Filtration Rate 53 mL/min (>60); Est Glom Filt Rate - Afr Amer 64 mL/min (>60); Estimated Creatinine Clearance 38.03 ml/min; Glucose 96 mg/dL (74-106); Potassium 3.9 mmol/L (3.5-5.1); Sodium Level 137 mmol/L (136-145)
--- NOTE | 2021-05-17 12:20 | ED.RN ---
spoke with daughter Laura. dr ludwig wants in ECF. pts at [facility]. pt at rehab in [facility] x 2 weeks. daughter states pt is not safe at home.
[2021-05-17 12:31] LABS: Differential Indicated SCAN CRITERIA MET
--- NOTE | 2021-05-17 12:31 | RAD_ITS ---
STUDY: X-RAY CHEST REASON FOR EXAM: Male, 80 years old. Cough TECHNIQUE: Single AP portable view of the chest. COMPARISON: Comparison is made with prior study of 12/06/2016. FINDINGS: EKG electrodes are seen. Hyperinflation. The lungs are clear. There is no demonstrated pleural abnormality. Normal size heart. Normal mediastinum and mauricio. Normal visualized pulmonary arteries. There is atherosclerotic calcification of the aortic arch with tortuosity. There are diffuse degenerative changes of the visualized thoracic spine. There is degenerative osteoarthritis of the bilateral shoulders. There is no demonstrated abnormality of the visualized soft tissue structures of the upper abdomen. RAD/Chest 1 View (Portable) IMPRESSION: Hyperinflation. Lungs are clear. Electronically Signed: Jerry Lewis MD at 13:21 EDT , Service support ,
--- NOTE | 2021-05-17 12:31 | CM.ED ---
Addendum entered by Laura Eldridge 05/17/21 13:29: Kya from TCU called back. She spoke to Dr. Mullen. SEBASTIAN noted that covid is negative. Per Kya patient is able to go to TCU. SEBASTIAN called patient's daughter Laura [phone]. SEBASTIAN updated that patient is being admitted to TCU. Laura was in agreement with plan for admission. manager merchandising and MD updated Plan: TCU Laura JOHNSON Original Note: SEBASTIAN was updated by JEWELL Schumacher that patient's daughter said that Dr. Mullen wants rehab for patient. is in [place]. SEBASTIAN called Kya, TCU/Rehab intake. She will review patient's chart and update this senior copywriter. Patient has Medicare A and B. SEBASTIAN updated RN and MD. SEBASTIAN will continue to follow. Laura JOHNSON
[2021-05-17 12:32] LABS: Lactic Acid 1.1 mmol/L (0.4-1.9); Platelet Estimate ADEQUATE (ADEQ)
--- NOTE | 2021-05-17 13:46 | ED.RN ---
Pt admitted to TCU
== END 2021-05-17 13:46 | disposition home or self-care (01) ==
PROVIDERS: Emergency Provider Emergency Medicine; PCP Family Medicine Geriatric Medicine
DX: J40 Bronchitis, not specified as acute or chronic (principal); K21.9 Gastro-esophageal reflux disease without esophagitis; I10 Essential (primary) hypertension; Z87.891 Personal history of nicotine dependence; Z79.01 Long term (current) use of anticoagulants
CPT/HCPCS: 71045; 80048; 83605; 85025; 87040; 87426; 99284; A4216

== ENCOUNTER 2021-05-17 13:50 | Inpatient (IN) | payer MEDICARE, OTHER, SELFPAY ==
[2021-05-17 14:01] VITALS: BP 193/86; PULSE 93; RESP 16; TEMP 36.6; O2SAT 97; BMI 23.6
[2021-05-17] MEDS: Ciprofloxacin 500 MG Tablet PO (17:29)
[2021-05-17] MEDS: APIXABAN 5 MG TABLET PO (17:30)
[2021-05-17] MEDS: ALPRAZolam 0.5 MG Tablet PO ×2 (17:32→21:23)
--- NOTE | 2021-05-17 18:22 | NURSING ---
SL placed in ED to RLE. Complains of pain it is causing. Removed.
[2021-05-17] MEDS: Magnesium Citrate 300 ML PO (18:26)
--- NOTE | 2021-05-17 20:28 | HP.PCM_ITS ---
HPI - General General Date of Admission: 05/17/21 HPI Narrative 05/17/2021 ANDREW BLANC, is a 80 Male who presents to [facility] Department with weakness. Cough, sore throat, fever, weakness. Fever 99, cough productive of white sputum. Bloodwork okay, Chest X-ray negative, covid negative. 05/17/2021 Admit to TCU with debility, here for rehabilitation, strengthening, prior to disposition determination. Resident is personal patient of mine, at last office visit, I recommended he move to congregate living environment or he will home alone. He refused to move. Today, I told him the same thing, after rehab in TCU, he should move to higher level of care then home independently or he will . He kept telling me over and over he wants to go home. [facility] Medical History (Updated 05/17/21 @ 20:[address] Roberto Mullen MD) GERD (gastroesophageal reflux disease) Hypertension Home Medications alprazolam 0.5 mg PO TID PRN 04/02/14 [History Last Taken 06/07/20] escitalopram oxalate 20 mg PO QHS 04/02/14 [History Last Taken 04/01/14] Omeprazole [Prilosec] 40 mg PO PRN PRN 12/08/16 [History Last Taken Unknown] apixaban [Eliquis] 5 mg PO BID 12/08/16 [History Last Taken 06/02/20] melatonin-pyridoxine (vit B6) 5 mg PO QHS PRN 05/22/19 [History Last Taken Unknown] polyethylene glycol 3350 17 gm PO PRN PRN 05/22/19 [History Last Taken Unknown] cholecalciferol (vitamin D3) 1,000 unit PO DAILY 10/26/19 [History Last Taken Unknown] ciprofloxacin HCl 500 mg PO BID 05/17/21 [History Last Taken Unknown] Allergy/AdvReac Type Severity Reaction Status Date / Time prednisone Allergy Other Verified 05/17/21 10:22 Surgical History (Updated 05/17/21 @ 20:[address] Roberto Mullen MD) H/O rotator cuff surgery History of adenoidectomy History of appendectomy History of tonsillectomy Social History (Updated 05/17/21 @ 20:[address] Roberto Mullen MD) household members: none Smoking Status: Former smoker ROS Constitutional Constitutional: Denies chills, fever(s) or weight gain ENT HEENT: Denies headache(s), nasal congestion or nasal discharge Cardiovascular Cardiovascular: Denies chest pain or palpitations Respiratory/Chest Respiratory/Chest: Denies cough, excessive phlegm production or shortness of breath with exertion Gastrointestinal Gastrointestinal: Denies abdominal pain, nausea or vomiting Genitourinary Genitourinary: Denies dysuria Musculoskeletal Musculoskeletal: Denies joint pain or joint swelling Integumentary Integumentary: Denies rash or wounds Neurologic Neurologic: Denies focal weakness, numbness or tingling Psychiatric Psychiatric: Reports auditory hallucinations; Denies anxiety, depression, homicidal ideation or suicidal ideation Vital Signs Vital Signs Vital Signs: 05/17/21 14:01 Temperature 97.9 F Temperature Source Temporal Pulse Rate 93 Pulse Rhythm Regular Respiratory Rate 16 Respiratory Effort Normal Respiratory Depth Normal Respiratory Pattern Normal Blood Pressure 193/86 H Blood Pressure Mean 121 Blood Pressure Source Monitor Blood Pressure Position Semi-Fowlers Blood Pressure Location Left Arm Pulse Ox 97 Oxygen Delivery Method Room Air Weight Weight: 64.41 kg Body Mass Index (BMI) 23.6 Physical Exam Const alert and oriented x3 General Appearance: cooperative HEENT normocephalic Eyes PERRL and EOMs intact bilaterally Neck supple, no JVD and no carotid bruits Resp normal respiratory effort, normal air movement and clear to auscultation bilaterally Cardio regular rate and regular rhythm GI normal to inspection, nondistended, normoactive bowel sounds, non-tender and non -distended Extremity normal capillary refill General Extremity: Negative for edema Skin no rashes or lesions noted General Skin Exam: no breakdown Psych affect normal Appearance: appropriate Assessment & Plan Assessment/Plan (1) Debility: (2) Adult failure to thrive: (3) Anxiety: (4) Benzodiazepine dependence: (5) Depression: (6) Gastroesophageal reflux disease: (7) Pulmonary embolism on long-term anticoagulation therapy: PLAN: 80 year old male with below past medical history significant for failure to thrive, admitted to TCU with debility, here for rehabilitation, strengthening, prior to disposition determination, recommend placement in [facility] care. * Debility - PT/OT. * Pain - Tylenol 1000mg Q6H prn pain (1-10). * Bowel - Miralax 17gm daily, Senna/colace 1 tablet twice daily, Dulcolax 10mg daily PRN, Magnesium citrate 300ml Po x 1 dose. * Adult immunization - Administer prevnar 13, pneumovax 23, fluzone, covid 19 vaccine as appropriate. * DVT prophylaxis - Not necessary, on Eliquis. * Anxiety - Xanax 0.5mg 4x/day. * BZD dependence - Wean off Xanax over 4 weeks. * Recurrent pulmonary embolism - Eliquis 5mg twice daily. * Vitamin D deficiency - D2 1000IU daily. * Depression - Lexapro 20mg QHS. * Insomnia - Melatonin 5mg QHS. * GERD - Pantoprazole 40mg daily.
[2021-05-17] MEDS: Escitalopram Oxalate 20 MG Tablet PO (21:17)
[2021-05-17] MEDS: MELATONIN 10 MG TABLET 5 MG PO (21:18)
[2021-05-17] MEDS: Acetaminophen 500 MG Tablet 1000 MG PO (22:56)
[2021-05-17 23:08] VITALS: PULSE 105; RESP 14
[2021-05-18] MEDS: APIXABAN 5 MG TABLET PO ×2 (05:31→16:43)
[2021-05-18] MEDS: Menthol/Lanolin/Calamine/Znox 113 GM Tube 1 APPLIC TOPICAL ×2 (05:31→16:43)
[2021-05-18] MEDS: Pantoprazole Sodium 40 MG Tablet PO (05:32)
[2021-05-18] MEDS: Senna/Docusate Sodium 1 Tablet PO ×2 (05:32→16:43)
[2021-05-18] MEDS: Polyethylene Glycol 3350 17 GM PACKET PO (05:32)
[2021-05-18] MEDS: Cholecalciferol (VIT D3) 25 MCG TABLET (1,000 UNITS) PO (05:33)
[2021-05-18] MEDS: ALPRAZolam 0.5 MG Tablet PO ×3 (05:37→16:42)
[2021-05-18 05:39] LABS: Absolute Lymphocyte Count 1.45 X10^3/uL (0.83-4.51); Absolute Neutrophil Count 3.8 X10^3/uL (2.0-7.7); Basophil# 0.05 X10^3/uL; Basophil% 0.8 % (0-1); Eosinophil# 0.02 X10^3/uL; Eosinophils% 0.3 % (0-5); Hematocrit 39.9 % (40-54); Hemoglobin 13.8 g/dL (13.0-16.5); Lymphocyte # 1.45 X10^3/ul (0.83-4.51); Lymphocyte % 22.9 % (19-41); Mean Corp Hgb Conc 34.6 g/dL (32-36); Mean Corpuscular Hgb 31.6 pg (27.0-32.0); Mean Corpuscular Volume 91.3 fL (80-94); Mean Platelet Vol. 8.3 fl (6.2-12.0); Monocyte# 0.99 X10^3/uL; Monocyte% 15.6 % (0-10); NRBC Flagged by Analyzer 0 % (0-5); Neutrophil # 3.81 X10^3/uL (2.7-7.7); Neutrophil % 60.1 % (47-70); Platelet Count 180 K/mm3 (150-450); RBC Distribution Width SD 40.2 fl (35.1-43.9); Red Blood Count 4.37 M/mm3 (4.6-6.2); White Blood Count 6.3 K/mm3 (4.4-11.0)
[2021-05-18 06:03] LABS: Anion Gap 7 (5-15); BUN 18 mg/dL (7-18); BUN/Creat Ratio 13.8 RATIO (10-20); Calcium,Total 8.7 mg/dL (8.5-10.1); Chloride 100 mmol/L (98-107); EST Glomerular Filtration Rate 57 mL/min (>60); Est Glom Filt Rate - Afr Amer 68 mL/min (>60); Estimated Creatinine Clearance 40.08 ml/min; Glucose 94 mg/dL (74-106); Potassium 3.4 mmol/L (3.5-5.1); Sodium Level 135 mmol/L (136-145)
[2021-05-18] MEDS: Acetaminophen 500 MG Tablet 1000 MG PO ×2 (06:40→16:35)
[2021-05-18] MEDS: Potassium Chloride Oral Tablet 20 MEQ PO (08:45)
--- NOTE | 2021-05-18 08:45 | CASEMGMT ---
Social Work SEBASTIAN received a call from pt daughter Laura King who states Pt was pt caregiver and recently had a heart attack and is now at [facility] in receiving rehabilitation. Laura has been caring for pt and pt has not been doing well at home. Physician and family have recommended ECF and pt has refused. Yesterday pt came to ED and then agreed to come to TCU. At this time, Laura is requesting pt to transfer to [facility] today. Laura states that if pt is not able to go under Medicare benefit, pt is able to pay privately. SEBASTIAN met with pt in room who confirms that he wants to go to [facility] today. Phone call to Alisha at [facility] and updated on situation. Referral faxed. SEBASTIAN will await return call for determination if they can accept pt today. YANIRA Bonilla
--- NOTE | 2021-05-18 11:41 | CASEMGMT ---
BIMS and PHQ9 interviews competed on this date for MDS assessment. YANIRA Bonilla
[2021-05-18] MEDS: Tuberculin,Purif.prot.deriv. 50 TU/ML Vial 0.1 ML ID (11:46)
--- NOTE | 2021-05-18 12:29 | CASEMGMT ---
Social Work SW spoke with [facility] and they are able to accept pt if pt PCR covid test comes back negative. SW informed nursing and PCR to be obtained. SW updated pt and dgt and both are agreeable. PassRR completed. Discharge Date: 05/18/21 Discharge Disposition: [facility], pending negative PCR covid test YANIRA Bonilla
--- NOTE | 2021-05-18 13:41 | PCM.DC.SUM ---
Providers Date of Admission: 05/17/21 Primary Care Physician: Dr. Roberto Mullen MD Reason For Visit: WEAKNESS Diagnosis Discharge Diagnosis (1) Debility: Status: Acute Code(s): R53.81 - Other malaise (2) Adult failure to thrive: Status: Acute Code(s): R62.7 - Adult failure to thrive (3) Anxiety: Status: Acute Code(s): F41.9 - Anxiety disorder, unspecified (4) Benzodiazepine dependence: Status: Acute Code(s): F13.20 - Sedative, hypnotic or anxiolytic dependence, uncomplicated (5) Depression: Status: Acute Code(s): F32.9 - Major depressive disorder, single episode, unspecified (6) Gastroesophageal reflux disease: Status: Acute Code(s): K21.9 - Gastro-esophageal reflux disease without esophagitis (7) Pulmonary embolism on long-term anticoagulation therapy: Status: Acute Code(s): I26.99 - Other pulmonary embolism without acute cor pulmonale; T45.515A - Adverse effect of anticoagulants, initial encounter Medications at Discharge Home Medications escitalopram oxalate 20 mg PO QHS 04/02/14 Eliquis 5 mg PO BID 12/08/16 cholecalciferol (vitamin D3) 1,000 unit PO DAILY 10/26/19 acetaminophen 1,000 mg PO Q6H PRN PRN #0 tab 05/18/21 alprazolam 0.5 mg PO 4X/DAY 7 Days #28 tab 05/18/21 pantoprazole 40 mg PO DAILY #0 tab 05/18/21 polyethylene glycol 3350 17 g PO DAILY #0 ea 05/18/21 sennosides-docusate sodium [Stool Softener-Stimulant Laxat] 1 tab PO BID #0 tab 05/18/21 Hospital Course Operations None Procedures None Summary of Care Provided Minutes Spent on Discharge: 35 Hospital Course: 80 year old male with below past medical history significant for failure to thrive, admitted to TCU with debility, here for rehabilitation, strengthening, prior to disposition determination, recommend placement in [facility] care. Discharge to [facility] , intermediate care. Physical Exam Const alert and oriented x3 General Appearance: cooperative HEENT normocephalic Eyes PERRL and EOMs intact bilaterally Neck supple, no JVD and no carotid bruits Resp normal respiratory effort, normal air movement and clear to auscultation bilaterally Cardio regular rate and regular rhythm GI normal to inspection, nondistended, normoactive bowel sounds, non-tender and non-distended Extremity normal capillary refill General Extremity: Negative for edema Skin no rashes or lesions noted General Skin Exam: no breakdown Psych affect normal Appearance: appropriate Weight / BMI Weight Weight: 64.41 kg Body Mass Index (BMI) 23.6 ABG / Lab / Microbiology Data Result Diagrams: 05/18/21 05:10 05/18/21 05:10 Laboratory: Laboratory Results - last 24 hr 05/18/21 05:10: WBC 6.3, RBC 4.37 L, Hgb 13.8, Hct 39.9 L, MCV 91.3, MCH 31.6, MCHC 34.6, RDW Std Deviation 40.2, RDW Coeff of Maritza 12.0, Plt Count 180, MPV 8.3, Immature Gran % (Auto) 0.300, Neut % (Auto) 60.1, Lymph % (Auto) 22.9, [place] % (Auto) 15.6 H, Eos % (Auto) 0.3, Baso % (Auto) 0.8, Absolute Neuts (auto) 3.8, Absolute Lymphs (auto) 1.45, Nucleated RBC % 0 05/18/21 05:10: Sodium 135 L, Potassium 3.4 L, Chloride 100, Carbon Dioxide 28.0, Anion Gap 7, BUN 18, Creatinine 1.30, Estim Creat Clear Calc 40.08, Est GFR (MDRD) Af Amer 68, Est GFR (MDRD) Non-Af 57 L, BUN/Creatinine Ratio 13.8, Glucose 94, Calcium 8.7 D/C Instructions Discharge Diet: No restrictions Discharge Activity: Return to Normal Activity, May Shower and Use Walker Weight Bearing Status: Weight bearing as tolerated Call your doctor if you observe: Fever of 101 or Higher, Inability to urinate, Inability to have a bowel movement, Shortness of breath, Dizziness, Fainting spells, Swelling in the ankles, Chest pain, Increased palpitations (irregular heartbeat) and Uncontrolled pain Additional Instructions: Discharge to [facility] , intermediate care. Meaningful Use Info Meaningful Use Diagnoses (Choose all that apply): None applicable Discharge Plan Admission Admit Date/Time: 05/17/21 13:50 Primary Reason for Your Visit: Debility. Attending Provider: Roberto Mullen Chi Primary Care Provider: Roberto Mullen Chi Instructions Additional Instructions / Restrictions: Discharge to [facility] , intermediate care. Discharge Orders/Prescriptions Prescriptions: New polyethylene glycol 3350 17 gram Powder In Packet 17 g PO DAILY Qty: 0 RF: 0 acetaminophen 500 mg Tablet 1,000 mg PO Q6H PRN PRN (Reason: Pain Score 1-10) Qty: 0 RF: 0 pantoprazole 40 mg Tablet,Delayed Release (Dr/Ec) 40 mg PO DAILY Qty: 0 RF: 0 sennosides-docusate sodium [Stool Softener-Stimulant Laxat] 8.6-50 mg Tablet 1 tab PO BID Qty: 0 RF: 0 alprazolam 0.5 mg Tablet 0.5 mg PO 4X/DAY 7 Days Qty: 28 RF: 0 Continued escitalopram oxalate 10 MG tablet 20 mg PO QHS RF: 0 Eliquis 5 MG tablet 5 mg PO BID RF: 0 cholecalciferol (vitamin D3) 1,000 UNIT tablet 1,000 unit PO DAILY RF: 0 Discontinued alprazolam 0.5 MG tablet 0.5 mg PO TID PRN (Reason: Anxiety) RF: 0 Omeprazole [Prilosec] 40 MG capsule 40 mg PO PRN PRN (Reason: Indigestion) RF: 0 polyethylene glycol 3350 17 GM packet 17 gm PO PRN PRN (Reason: Constipation) RF: 0 melatonin-pyridoxine (vit B6) 1 EACH tablet 5 mg PO QHS PRN (Reason: Sleep) RF: 0 ciprofloxacin HCl 500 MG tablet 500 mg PO BID RF: 0 Referrals / Follow Up: Roberto Mullen Chi, MD [Primary Care Provider] - Disposition Disposition (needs filled in before D/C Order can be placed): NonSkilled NH/Intermed Care
--- NOTE | 2021-05-18 13:49 | PCM.TXEXTCAR ---
Diet 05/17/21 17:45 Diet: Regular - General Is pt able to select menu?: Yes Routine Orders/Code Status Suppository Type: Dulcolax 10mg Suppository Frequency: Daily PRN Code Status: DNRCC-A (No intubation.) Wound(s) Lt arm: Wound Type: Skin Tear Therapies Weight Bearing: Weight bearing as tolerated Problem/Diagnosis (1) Debility: Status: Acute (2) Adult failure to thrive: Status: Acute (3) Anxiety: Status: Acute (4) Benzodiazepine dependence: Status: Acute (5) Depression: Status: Acute (6) Gastroesophageal reflux disease: Status: Acute (7) Pulmonary embolism on long-term anticoagulation therapy: Status: Acute Allergies/Procedures Done in Hospital Allergies prednisone Allergy (Verified 05/17/21 10:22) Other Procedures: None Type of Care/Length of Stay Estimated LOS: More Than 30 Days Type of Care Needed: Intermediate Rehab Potential: Fair Prognosis: Fair Additional Orders/Day of Discharge Day of Discharge: 05/18/21 Discharge Plan Admission Admit Date/Time: 05/17/21 13:50 Primary Reason for Your Visit: Debility. Attending Provider: Roberto Mullen Chi Primary Care Provider: Roberto Mullen Chi Instructions Additional Instructions / Restrictions: Discharge to [facility] , intermediate care. Discharge Orders/Prescriptions Prescriptions: New polyethylene glycol 3350 17 gram Powder In Packet 17 g PO DAILY Qty: 0 RF: 0 acetaminophen 500 mg Tablet 1,000 mg PO Q6H PRN PRN (Reason: Pain Score 1-10) Qty: 0 RF: 0 pantoprazole 40 mg Tablet,Delayed Release (Dr/Ec) 40 mg PO DAILY Qty: 0 RF: 0 sennosides-docusate sodium [Stool Softener-Stimulant Laxat] 8.6-50 mg Tablet 1 tab PO BID Qty: 0 RF: 0 alprazolam 0.5 mg Tablet 0.5 mg PO 4X/DAY 7 Days Qty: 28 RF: 0 Continued escitalopram oxalate 10 MG tablet 20 mg PO QHS RF: 0 Eliquis 5 MG tablet 5 mg PO BID RF: 0 cholecalciferol (vitamin D3) 1,000 UNIT tablet 1,000 unit PO DAILY RF: 0 Discontinued alprazolam 0.5 MG tablet 0.5 mg PO TID PRN (Reason: Anxiety) RF: 0 Omeprazole [Prilosec] 40 MG capsule 40 mg PO PRN PRN (Reason: Indigestion) RF: 0 polyethylene glycol 3350 17 GM packet 17 gm PO PRN PRN (Reason: Constipation) RF: 0 melatonin-pyridoxine (vit B6) 1 EACH tablet 5 mg PO QHS PRN (Reason: Sleep) RF: 0 ciprofloxacin HCl 500 MG tablet 500 mg PO BID RF: 0 Referrals / Follow Up: Roberto Mullen Chi, MD [Primary Care Provider] - Disposition Disposition (needs filled in before D/C Order can be placed): NonSkilled NH/Intermed Care
[2021-05-18 14:19] VITALS: PULSE 93
--- NOTE | 2021-05-18 15:46 | PCM.PN.RX ---
Progress Note - Pharmacy Subjective: TCU ADMISSION Objective: Allergies prednisone Allergy (Verified 05/17/21 10:22) Other Current Medications Generic Name Dose Route Start Last Admin Trade Name Jaqui PRN Reason Stop Dose Admin Acetaminophen 1,000 mg 05/17/21 20:41 05/18/21 06:40 Acetaminophen 500 Mg Tablet PO 1,000 mg Q6H PRN PRN Administration Pain Score 1-10 Alprazolam 0.5 mg 05/17/21 22:00 05/18/21 11:46 Alprazolam 0.5 Mg Tablet PO 05/24/21 22:01 0.5 mg 4X/DAY JUAREZ Administration Alprazolam 0.5 mg 05/25/21 06:00 Alprazolam 0.5 Mg Tablet PO 06/01/21 22:01 TID JUAREZ Alprazolam 0.5 mg 06/02/21 06:00 Alprazolam 0.5 Mg Tablet PO 06/09/21 18:01 BID JUAREZ Alprazolam 0.5 mg 06/10/21 22:00 Alprazolam 0.5 Mg Tablet PO 06/17/21 22:01 QHS JUAREZ Apixaban 5 mg 05/17/21 18:00 05/18/21 05:31 Apixaban 5 Mg Tablet PO 5 mg BID JUAREZ Administration Bisacodyl 10 mg 05/17/21 20:41 Bisacodyl 5 Mg Tablet PO DAILY PRN Constipation Calamine/Phenol 1 applic 05/18/21 06:00 05/18/21 05:31 Menthol/Lanolin/Calamine/Znox 113 Gm Tube TOPICAL 1 applic BID JUAREZ Administration Protocol Cholecalciferol 25 mcg 05/18/21 06:00 05/18/21 05:33 Cholecalciferol (Vit D3) 25 Mcg Tablet (1,000 Units) PO 25 mcg DAILY JUAREZ Administration Escitalopram Oxalate 20 mg 05/17/21 22:00 05/17/21 21:17 Escitalopram Oxalate 20 Mg Tablet PO 20 mg QHS JUAREZ Administration Melatonin 5 mg 05/17/21 22:00 05/17/21 21:18 Melatonin 10 Mg Tablet PO 5 mg QHS JUAREZ Administration Pantoprazole Sodium 40 mg 05/18/21 06:00 05/18/21 05:32 Pantoprazole Sodium 40 Mg Tablet PO 40 mg DAILY JUAREZ Administration Polyethylene Glycol 17 gm 05/18/21 06:00 05/18/21 05:32 Polyethylene Glycol 3350 17 Gm Packet PO 17 gm DAILY JUAREZ Administration Potassium Chloride 20 meq 05/18/21 08:00 05/18/21 08:45 Potassium Chloride Oral Tablet 20 Meq PO 20 meq DAILYCM JUAREZ Administration Senna/Docusate Sodium 1 tablet 05/18/21 06:00 05/18/21 05:32 Senna/Docusate Sodium 1 Tablet PO 1 tablet BID JUAREZ Administration Tuberculin PPD 0.1 ml 05/25/21 10:00 Tuberculin,Purif.Prot.Deriv. 50 Tu/Ml Vial ID 05/25/21 10:01 X1 ONE Problem List (Last Reviewed 05/17/21 @ 20:[address] Roberto Mullen MD) Pulmonary embolism on long-term anticoagulation therapy (Acute) Gastroesophageal reflux disease (Acute) Depression (Acute) Benzodiazepine dependence (Acute) Anxiety (Acute) Adult failure to thrive (Acute) Debility (Acute) Vital Signs Temp Pulse Resp BP Pulse Ox 97.9 F 93 14 193/86 H 97 05/17/21 14:01 05/18/21 14:19 05/17/21 23:08 05/17/21 14:01 05/17/21 14:01 Oxygen Delivery Method Room Air Weight: 64.41 kg Body Mass Index (BMI) 23.6 Sodium 135 mmol/L (136-145) L 05/18/21 05:10 Potassium 3.4 mmol/L (3.5-5.1) L 05/18/21 05:10 Chloride 100 mmol/L (98-107) 05/18/21 05:10 Carbon Dioxide 28.0 mmol/L (21.0-32.0) 05/18/21 05:10 Anion Gap 7 (5-15) 05/18/21 05:10 BUN 18 mg/dL (7-18) 05/18/21 05:10 Creatinine 1.30 mg/dL (0.70-1.30) 05/18/21 05:10 Est GFR (MDRD) Af Amer 68 mL/min (>60) 05/18/21 05:10 Est GFR (MDRD) Non-Af 57 mL/min (>60) L 05/18/21 05:10 BUN/Creatinine Ratio 13.8 RATIO (10-20) 05/18/21 05:10 Glucose 94 mg/dL (74-106) 05/18/21 05:10 Assessment/Plan: 1. Pain - Tylenol 1000mg PO Q6H prn pain (1-10). Please continue to monitor for S/S increased/decreased pain, PRN medication usage. 2. Recurrent pulmonary embolism - Eliquis 5mg PO twice daily. Please continue to monitor for S/S bleeding/bruising. 3. Vitamin D deficiency - D2 1000IU PO daily. Please continue to monitor. 4. Insomnia - Melatonin 5mg PO QHS. Please continue to monitor for medication effectiveness. 5. GERD - Pantoprazole 40mg PO daily. Please continue to monitor for S/S GERD exacerbations. Psychotropic Medications: Anxiety - Xanax 0.5mg 4x/day. Please consider GDR by 10/2021 if clinically indicated, thank you. Depression - Lexapro 20mg PO QHS. Please consider a GDR by 10/2021 if clinically indicated, thank you. Unnecessary Medications: None Bowel Regimen: Miralax 17gm daily, Senna/colace 1 tablet twice daily, Dulcolax 10mg daily PRN. Please continue to monitor for increased/decreased constipation and/or diarrhea. Date of Note:: 05/18/21
[2021-05-18 16:00] VITALS: BP 165/69; PULSE 93; RESP 18; TEMP 37.1; O2SAT 95
--- NOTE | 2021-05-18 16:24 | CASEMGMT ---
Social Work PCR test is negative. [facility] informed and can accept pt today. Transportation set up with [facility] for 5:00 parts picker by cot. PASSRR completed and orders faxed to [facility]. Pt and dgt notified and agreeable to d/c plan. Nursing updated and [facility] notified of d/c time. YANIRA Bonilla
--- NOTE | 2021-05-21 10:24 | NURSING ---
Echocardiography Technologist Note: Res admitted and d/c within 24 hours. No opportunity to complete MDS Section for activity preferences.
--- NOTE | 2021-05-25 09:28 | MDS.RN ---
Information for the mds was obtained from review of the clinical record, interview of resident, staff, and direct observation of resident's care.
== END 2021-05-18 17:50 | disposition intermediate care facility (04) | DRG 881 ==
PROVIDERS: Admitting Provider Family Medicine Geriatric Medicine; PCP Family Medicine Geriatric Medicine; Visit Provider Family Medicine Geriatric Medicine
DX: F32.9 Major depressive disorder, single episode, unspecified (principal); I26.99 Other pulmonary embolism without acute cor pulmonale; R44.0 Auditory hallucinations; F13.20 Sedative, hypnotic or anxiolytic dependence, uncomplicated; K21.9 Gastro-esophageal reflux disease without esophagitis; I10 Essential (primary) hypertension; R62.7 Adult failure to thrive; F41.9 Anxiety disorder, unspecified; E55.9 Vitamin D deficiency, unspecified; Z79.899 Other long term (current) drug therapy; Z79.01 Long term (current) use of anticoagulants; Z87.891 Personal history of nicotine dependence
CPT/HCPCS: 36415; 80048; 85025; 87635; 99406; U0005; U0003

== ENCOUNTER → 2021-06-14 11:50 | Outpatient (CLI) | payer MEDICARE, OTHER, SELFPAY ==
[2021-06-14 12:54] LABS: Absolute Neutrophil Count 6.1 X10^3/uL (2.0-7.7); Basophil# 0.09 X10^3/uL; Basophil% 0.9 % (0-1); Eosinophil# 0.16 X10^3/uL; Eosinophils% 1.7 % (0-5); Hematocrit 39.6 % (40-54); Lymphocyte % 24.2 % (19-41); Mean Corp Hgb Conc 32.8 g/dL (32-36); Mean Corpuscular Hgb 30.8 pg (27.0-32.0); Mean Corpuscular Volume 93.8 fL (80-94); Mean Platelet Vol. 8.7 fl (6.2-12.0); Monocyte# 0.87 X10^3/uL; Monocyte% 9.1 % (0-10); NRBC Flagged by Analyzer 0 % (0-5); Neutrophil # 6.05 X10^3/uL (2.7-7.7); Neutrophil % 63.7 % (47-70); Platelet Count 254 K/mm3 (150-450); RBC Distribution Width CV 13.2 % (11.6-14.6); RBC Distribution Width SD 44.8 fl (35.1-43.9); Red Blood Count 4.22 M/mm3 (4.6-6.2); White Blood Count 9.5 K/mm3 (4.4-11.0)
[2021-06-14 13:23] LABS: Vitamin D,25 Hydroxy 44.6 ng/mL
[2021-06-14 13:32] LABS: ALB/GLOB Ratio 0.8 RATIO (0.9-2.4); AST(SGOT) 16 U/L (15-37); Alanine Aminotransfer ALT/SGPT 10 U/L (16-61); Albumin, Serum 3.3 g/dL (3.2-5.0); Alkaline Phosphatase 75 U/L (45-117); Anion Gap 5 (5-15); BUN 25 mg/dL (7-18); BUN/Creat Ratio 19.2 RATIO (10-20); Calcium,Total 8.9 mg/dL (8.5-10.1); Chloride 107 mmol/L (98-107); EST Glomerular Filtration Rate 57 mL/min (>60); Est Glom Filt Rate - Afr Amer 68 mL/min (>60); Globulin 4.2 g/dL (2.2-4.2); Glucose 123 mg/dL (74-106); Potassium 3.8 mmol/L (3.5-5.1); Protein, Total 7.5 g/dL (6.4-8.2); Sodium Level 141 mmol/L (136-145); Thyroid Stim Hormone (TSH) 1.19 uIU/mL (0.358-3.74); Uric Acid 5.5 mg/dL (3.5-7.2)
== END ==
PROVIDERS: PCP Family Medicine Geriatric Medicine; Visit Provider Family Medicine Geriatric Medicine
DX: I10 Essential (primary) hypertension (principal); E55.9 Vitamin D deficiency, unspecified; M10.9 Gout, unspecified; F52.8 Other sexual dysfunction not due to a substance or known physiological condition
CPT/HCPCS: 36415; 80053; 82306; 84403; 84443; 84550; 85025

== ENCOUNTER 2021-06-27 21:10 | Emergency (ER) | payer MEDICARE, OTHER, SELFPAY ==
[2021-06-27 21:11] VITALS: BP 152/69; BP 163/70; PULSE 79; PULSE 85; RESP 10; RESP 14; TEMP 36.7; O2SAT 99; BMI 24.6
--- NOTE | 2021-06-27 21:39 | CT_ITS ---
STUDY: CT BRAIN WITHOUT CONTRAST REASON FOR EXAM: Male, 80 years old. Injury RADIATION DOSAGE (If Supplied By Facility): CTDIvol = ( 44.99 ) mGy, DLP = ( 812.98 ) mGycm TECHNIQUE: Transaxial CT imaging of the brain was performed without administration of intravenous contrast material. Individualized dose optimization techniques were used for this CT. COMPARISON: 11/04/2018 FINDINGS: Normal soft tissue structures. Normal calvarium. Normal size ventricles and extra-axial spaces for the patient''s age. Mild white matter microangiopathic ischemic changes of the cerebral hemispheres. Normal basal ganglia and thalami. Normal brainstem. Normal cerebellum. There is no intracranial hemorrhage. There are no findings of an acute ischemic infarction. Normal visualized paranasal sinuses. CT/Brain/Head without Contrast IMPRESSION: Age-related changes of the brain. Electronically Signed: Kapil Alva DO at 22:54 EDT Tel [phone], Service support ,
--- NOTE | 2021-06-27 21:39 | CT_ITS ---
STUDY: CT CERVICAL SPINE WITHOUT CONTRAST REASON FOR EXAM: Male, 80 years old. Injury RADIATION DOSAGE (If Supplied By Facility): CTDIvol = ( 18.27 ) mGy, DLP = ( 340.98 ) mGycm TECHNIQUE: High resolution transaxial imaging was performed without contrast material. Sagittal and coronal images were reconstructed. Individualized dose optimization techniques were used for this CT. COMPARISON: None FINDINGS: Normal craniovertebral junction. Normal anterior atlantoaxial articulation. Normal odontoid process. Normal cervical lordosis. Normal vertebral bodies and posterior osseous elements. C2-3: Normal endplates. Normal disc height and morphology. Normal central canal and intervertebral neuroforamina. C3-4: Spurring at the endplates. Normal disc height with a small central disc protrusion. Normal central canal. Uncovertebral spurring slightly narrowing the intervertebral neuroforamina. C4-5: Bridging osteophytes at the endplates. Normal disc height and morphology. Normal central canal. Mild uncovertebral spurring and facet hypertrophy slightly narrowing the left intervertebral neural foramen. C5-6: Bridging osteophytes at the endplates. Normal disc height and morphology. Normal central canal and intervertebral neuroforamina. C6-7: Spurring at the endplates. Normal disc height and morphology. Normal central canal and intervertebral neuroforamina. C7-T1: Bridging osteophytes at the endplates. Normal disc height and morphology. Normal central canal and intervertebral neuroforamina. Normal visualized soft tissue structures. 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 Electronically Signed: Kapil Alva DO at 23:08 EDT Tel [phone], Service support ,
--- NOTE | 2021-06-27 22:15 | EX.ED.DYSGE1 ---
HPI History of Present Illness Chief Complaint: Head Injury Informant: patient Narrative Narrative: 80-year-old male lives at home with his who is recovering from open heart surgery 5 weeks ago. He tells me that he got out of bed that to have a bowel movement and got lightheaded and fell down. He states he hit his head on the ground and that he is on Eliquis. He denies any loss of consciousness nausea or vomiting. He states for the past week he has had a sore neck. PFSH PFSH Medical History GERD (gastroesophageal reflux disease) Hypertension Home Medications escitalopram oxalate 20 mg PO QHS 04/02/14 [History Last Taken 04/01/14] Eliquis 5 mg PO BID 12/08/16 [History Last Taken 06/02/20] cholecalciferol (vitamin D3) 1,000 unit PO DAILY 10/26/19 [History Last Taken Unknown] acetaminophen 1,000 mg PO Q6H PRN PRN #0 tab 05/18/21 [Rx Last Taken Unknown] alprazolam 0.5 mg PO 4X/DAY 7 Days #28 tab 05/18/21 [Rx Last Taken Unknown] pantoprazole 40 mg PO DAILY #0 tab 05/18/21 [Rx Last Taken Unknown] polyethylene glycol 3350 17 g PO DAILY #0 ea 05/18/21 [Rx Last Taken Unknown] sennosides-docusate sodium [Stool Softener-Stimulant Laxat] 1 tab PO BID #0 tab 05/18/21 [Rx Last Taken Unknown] Allergy/AdvReac Type Severity Reaction Status Date / Time prednisone Allergy Other Verified 05/17/21 10:22 Surgical History H/O rotator cuff surgery History of adenoidectomy History of appendectomy History of tonsillectomy Social History household members: none Smoking Status: Former smoker ROS ROS ED Constitutional Constitutional ED: Denies chills or weight loss Eyes Eyes: Denies change in vision or diplopia ENT ENT ED: Denies ear pain, rhinorrhea or sore throat Cardiovascular Cardiovascular: Denies chest pain, orthopnea, palpitations or racing heartbeat Respiratory/Chest Respiratory/Chest: Denies cough, dyspnea or orthopnea Gastrointestinal Gastrointestinal: Denies abdominal pain, diarrhea, nausea or vomiting Genitourinary Genitourinary ED: Denies dysuria, hematuria or urinary frequency Musculoskeletal Musculoskeletal: Reports neck pain; Denies arthralgias or myalgias Integumentary Denies abscess or rash Neurologic Neurologic: Reports headache(s); Denies weakness Psychiatric Psychiatric: Denies anxiety, depression, suicidal ideation or suicidal thoughts Endocrine Endocrinology: Denies polydipsia, polyphagia or polyuria Allergic/Immunologic Allergic/Immunologic ED: Denies mouth swelling, tongue swelling or urticaria EXAM Physical Exam Const Vital Signs: 06/27/21 21:11 Temperature 98.1 F Temperature Source Temporal Pulse Rate 85 Respiratory Rate 14 Blood Pressure 152/69 H Blood Pressure Mean 96 Pulse Ox 99 Oxygen Delivery Method Room Air Positive well nourished and well developed General Appearance ED: well developed HEENT Reports normocephalic, head/scalp atraumatic and moist mucous membranes Eyes PERRL and EOMs intact bilaterally Neck no lymphadenopathy, supple and no JVD Resp normal respiratory effort and clear to auscultation bilaterally Cardio regular rate, regular rhythm and no murmurs GI normal to inspection, nondistended, normoactive bowel sounds and non-tender Palpation: soft Back/Spine no CVA tenderness and normal ROM Extremity normal to inspection General Extremety ED: Negative for edema General Extremity: Negative for edema Neuro oriented x3 and CN's II-XII intact bilaterally Sensorium / Orientation: alert Motor Exam: strength 5/5 throughout Psych mental status grossly normal Mood & Affect: Negative for depressed or tearful Skin no rashes or lesions noted and no wounds MDM MDM MDM Narrative Medical decision making narrative: CT of the head and cervical spine were negative for acute. Patient will be discharged home. He is comfortable with this plan Radiography Diagnostic Testing: Radiology Impression Brain CT 06/27/21 21:39 IMPRESSION: Age-related changes of the brain. Electronically Signed: Kapil Alva DO at 22:54 EDT Tel [phone], Service support , Cervical Spine CT 06/27/21 21:39 IMPRESSION: Mild degenerative changes and discogenic disease as noted of the cervical spine. Electronically Signed: Kapil Alva at 23:08 EDT Tel [phone], Service support , Discharge Plan Triage Chief Complaint: Head Injury ED Provider: Moses Curry Dx/Rx/DC Orders Clinical Impression: Fall, CHI (closed head injury), Acute neck pain Instructions: ED Head Injury (Adult) Prescriptions: No Action escitalopram oxalate 10 MG tablet 20 mg PO QHS RF: 0 Eliquis 5 MG tablet 5 mg PO BID RF: 0 cholecalciferol (vitamin D3) 1,000 UNIT tablet 1,000 unit PO DAILY RF: 0 polyethylene glycol 3350 17 gram Powder In Packet 17 g PO DAILY Qty: 0 RF: 0 acetaminophen 500 mg Tablet 1,000 mg PO Q6H PRN PRN (Reason: Pain Score 1-10) Qty: 0 RF: 0 pantoprazole 40 mg Tablet,Delayed Release (Dr/Ec) 40 mg PO DAILY Qty: 0 RF: 0 sennosides-docusate sodium [Stool Softener-Stimulant Laxat] 8.6-50 mg Tablet 1 tab PO BID Qty: 0 RF: 0 alprazolam 0.5 mg Tablet 0.5 mg PO 4X/DAY 7 Days Qty: 28 RF: 0 Primary Care Provider: Roberto Mullen Chi Referrals: Roberto Mullen Chi, MD [Primary Care Provider] - 1 Week Disposition Disposition: Home, Self Care
== END 2021-06-27 23:46 | disposition home or self-care (01) ==
PROVIDERS: Emergency Provider Emergency Medicine; PCP Family Medicine Geriatric Medicine
DX: S09.90XA Unspecified injury of head, initial encounter (principal); W22.03XA Walked into furniture, initial encounter; M47.812 Spondylosis without myelopathy or radiculopathy, cervical region; I10 Essential (primary) hypertension; K21.9 Gastro-esophageal reflux disease without esophagitis; Z79.01 Long term (current) use of anticoagulants; Z87.891 Personal history of nicotine dependence
CPT/HCPCS: 70450; 72125; 99284

== ENCOUNTER → 2021-08-22 16:16 | Outpatient (CLI) | payer MEDICARE, OTHER, SELFPAY ==
--- NOTE | 2021-08-22 16:17 | MRI_ITS ---
STUDY: MRI BRAIN WITH AND WITHOUT CONTRAST REASON FOR EXAM: Male, 80 years old. Mild Dementia, Parkinson''s Disease TECHNIQUE: Standardized multiplanar fat and water weighted pulse sequences were obtained. IV dotarem 15ml was administered for the contrast portion of the examination. COMPARISON: CT head May FINDINGS: Normal size of the ventricles and extra-axial spaces for the patient''s age. Normal white matter tracts of the supratentorial brain. Normal bilateral basal ganglia. Normal thalami. There is no extra-axial fluid accumulation. Normal flow voids within the major intracranial circulation suggesting patency by spin echo criteria. Normal venous enhancement. There is no enhancing intra-axial or extra-axial abnormality. Normal sella turcica, pituitary gland, infundibular stalk, optic chiasm and hypothalamus. Normal tectal plate and pineal gland. Normal midbrain, kyle and medulla. Normal cerebellum. Normal basal cisterns. Normal bilateral temporal bones. Normal bilateral internal auditory canals. No demonstrated orbital abnormality, within the constraints of a routine brain study. Normal visualized paranasal sinuses. Normal calvarium and skull base. Normal visualized soft tissue structures. Normal visualized upper cervical spine. MRI/Brain W/WO Contrast IMPRESSION: Normal unenhanced and enhanced MRI of the brain. Electronically Signed: Xin Quintero MD at 21:45 EST Tel , Service support ,
[2021-08-22 17:00] LABS: CREATININE FINGERSTICK 0.7 mg/dL (0.70-1.30); EGFR FINGERSTICK > 60.0000 mL/min (>60)
== END ==
PROVIDERS: PCP Family Medicine Geriatric Medicine; Visit Provider Psychiatry & Neurology Neurology
DX: G20 Parkinson's disease (principal); F03.90 Unspecified dementia, unspecified severity, without behavioral disturbance, psychotic disturbance, mood disturbance, and anxiety
CPT/HCPCS: 70553; A9575

== ENCOUNTER 2021-10-29 09:59 | Outpatient (CLI) | payer MEDICARE, OTHER, SELFPAY ==
[2021-10-29 10:18] LABS: Absolute Lymphocyte Count 2.56 X10^3/uL (0.83-4.51); Absolute Neutrophil Count 7.3 X10^3/uL (2.0-7.7); Basophil# 0.06 X10^3/uL; Basophil% 0.5 % (0-1); Eosinophil# 0.11 X10^3/uL; Hematocrit 43.9 % (40-54); Hemoglobin 14.5 g/dL (13.0-16.5); Lymphocyte # 2.56 X10^3/ul (0.83-4.51); Mean Platelet Vol. 8.5 fl (6.2-12.0); Monocyte# 1.04 X10^3/uL; Monocyte% 9.3 % (0-10); NRBC Flagged by Analyzer 0 % (0-5); Neutrophil # 7.34 X10^3/uL (2.7-7.7); Neutrophil % 65.8 % (47-70); Platelet Count 265 K/mm3 (150-450); RBC Distribution Width CV 12.6 % (11.6-14.6); RBC Distribution Width SD 43.9 fl (35.1-43.9); Red Blood Count 4.67 M/mm3 (4.6-6.2); White Blood Count 11.2 K/mm3 (4.4-11.0)
[2021-10-29 10:34] LABS: ALB/GLOB Ratio 0.9 RATIO (0.9-2.4); AST(SGOT) 15 U/L (15-37); Alanine Aminotransfer ALT/SGPT 8 U/L (16-61); Albumin, Serum 3.5 g/dL (3.2-5.0); Alkaline Phosphatase 77 U/L (45-117); Anion Gap 3 (5-15); BUN 26 mg/dL (7-18); BUN/Creat Ratio 20.2 RATIO (10-20); Chloride 106 mmol/L (98-107); Creatinine, Serum 1.29 mg/dL (0.70-1.30); EST Glomerular Filtration Rate 57 mL/min (>60); Est Glom Filt Rate - Afr Amer 69 mL/min (>60); Globulin 3.9 g/dL (2.2-4.2); Glucose 98 mg/dL (74-106); Potassium 4.1 mmol/L (3.5-5.1); Protein, Total 7.4 g/dL (6.4-8.2); Sodium Level 139 mmol/L (136-145)
== END 2021-10-29 23:59 | disposition short-term general hospital (02) ==
LOC: POLAB3 10:00
PROVIDERS: PCP Family Medicine Geriatric Medicine; Visit Provider Family Medicine Geriatric Medicine
DX: R10.9 Unspecified abdominal pain (principal)
CPT/HCPCS: 36415; 80053; 85025

== ENCOUNTER 2021-10-29 10:08 | Outpatient (CLI) | payer MEDICARE, OTHER, SELFPAY ==
--- NOTE | 2021-10-29 10:18 | CT_ITS ---
We are attempting to reach an attending provider to discuss findings. An addendum with communication details will be sent when the communication is complete. STUDY: CT ABDOMEN AND PELVIS WITH CONTRAST REASON FOR EXAM: Male, 81 years old. ABD. PAIN RADIATION DOSAGE (If Supplied By Facility): CTDIvol = ( 8.33 ) mGy, DLP = ( 694.79 ) mGycm TECHNIQUE: Transaxial images were obtained from the dome of the diaphragm to the symphysis pubis with oral contrast. Oral and amp; IV Gastrografin and amp; 100mL Isovue-300 was administered. Sagittal and coronal images were reconstructed. Individualized dose optimization techniques were used for this CT. COMPARISON: 05/16/2020 FINDINGS: The visualized lung bases are unremarkable. The visualized portions of the heart are within normal limits. Normal liver. Normal gallbladder and extrahepatic biliary system. Normal spleen. Normal pancreas. Normal bilateral adrenal glands. 3 cm cyst in the midsection of right kidney. Normal left kidney. Normal visualized stomach. Normal small intestine. There is diverticulosis, with thickening of the colon wall, and pericolonic inflammation changes consistent with acute diverticulitis. No loculated fluid collection to suggest abscess. No pneumoperitoneum to suggest perforation. There is non-visualization of the appendix. There is diffuse atherosclerotic calcification of the abdominal aorta, without a demonstrated aneurysm. Normal inferior vena cava. Normal retroperitoneum. Normal urinary bladder. Normal abdominal wall. Normal osseous structures. CT/Abdomen/Pelvis WITH Contrast IMPRESSION: Diverticulitis of the proximal sigmoid colon. No abscess or perforation. Electronically Signed: Sd Adorno MD at 13:29 EST ,
== END 2021-10-29 23:59 | disposition short-term general hospital (02) ==
PROVIDERS: PCP Family Medicine Geriatric Medicine; Referring Provider Family Medicine Geriatric Medicine; Visit Provider Family Medicine Geriatric Medicine
DX: R10.9 Unspecified abdominal pain (principal)
CPT/HCPCS: 36415; 74177; 80053; 85025; Q9967

== ENCOUNTER 2021-12-19 14:15 | Outpatient (CLI) | payer MEDICARE, OTHER, SELFPAY ==
[2021-12-19 16:02] LABS: Absolute Lymphocyte Count 2.18 X10^3/uL (0.83-4.51); Basophil# 0.06 X10^3/uL; Basophil% 0.6 % (0-1); Eosinophil# 0.14 X10^3/uL; Eosinophils% 1.5 % (0-5); Hematocrit 44.4 % (40-54); Hemoglobin 15.6 g/dL (13.0-16.5); Lymphocyte # 2.18 X10^3/ul (0.83-4.51); Lymphocyte % 23.4 % (19-41); Mean Corp Hgb Conc 35.1 g/dL (32-36); Mean Corpuscular Hgb 32.8 pg (27.0-32.0); Mean Corpuscular Volume 93.5 fL (80-94); Monocyte# 0.86 X10^3/uL; Monocyte% 9.2 % (0-10); NRBC Flagged by Analyzer 0 % (0-5); Neutrophil # 6.02 X10^3/uL (2.7-7.7); Neutrophil % 64.9 % (47-70); Platelet Count 290 K/mm3 (150-450); RBC Distribution Width CV 12.4 % (11.6-14.6); RBC Distribution Width SD 43.1 fl (35.1-43.9); Red Blood Count 4.75 M/mm3 (4.6-6.2); White Blood Count 9.3 K/mm3 (4.4-11.0)
[2021-12-19 16:26] LABS: AST(SGOT) 17 U/L (15-37); Alanine Aminotransfer ALT/SGPT 18 U/L (16-61); Albumin, Serum 3.8 g/dL (3.2-5.0); Alkaline Phosphatase 82 U/L (45-117); Anion Gap 5 (5-15); BUN 31 mg/dL (7-18); BUN/Creat Ratio 22.5 RATIO (10-20); Calcium,Total 9.1 mg/dL (8.5-10.1); Chloride 103 mmol/L (98-107); Creatinine, Serum 1.38 mg/dL (0.70-1.30); EST Glomerular Filtration Rate 53 mL/min (>60); Est Glom Filt Rate - Afr Amer 64 mL/min (>60); Globulin 3.8 g/dL (2.2-4.2); Glucose 99 mg/dL (74-106); Potassium 4.5 mmol/L (3.5-5.1); Protein, Total 7.6 g/dL (6.4-8.2); Sodium Level 139 mmol/L (136-145); Thyroid Stim Hormone (TSH) 0.55 uIU/mL (0.358-3.74); Uric Acid 4.8 mg/dL (3.5-7.2)
== END 2021-12-19 23:59 | disposition home or self-care (01) ==
LOC: POLAB3 14:17
PROVIDERS: PCP Family Medicine Geriatric Medicine; Visit Provider Family Medicine Geriatric Medicine
DX: I10 Essential (primary) hypertension (principal); E11.9 Type 2 diabetes mellitus without complications; E55.9 Vitamin D deficiency, unspecified; F52.8 Other sexual dysfunction not due to a substance or known physiological condition; M10.9 Gout, unspecified
CPT/HCPCS: 36415; 80053; 82306; 84403; 84443; 84550; 85025

== ENCOUNTER 2021-12-27 13:26 | Outpatient (CLI) | payer MEDICARE, OTHER, SELFPAY ==
--- NOTE | 2021-12-27 13:35 | RAD_ITS ---
STUDY: X-RAY - PELVIS AND RIGHT HIP REASON FOR EXAM: Male, 81 years old. HIP PAIN TECHNIQUE: XR Hip Unilateral with Pelvis when performed; 2-3 Views COMPARISON: 09.18.20 FINDINGS: There is a non-specific bowel gas pattern. Normal visualized soft tissue structures. There are degenerative changes of the lumbar spine. Normal bilateral iliac wings, sacroiliac joints and visualized sacrum. Normal bilateral superior and inferior pubic rami. Normal pubic symphysis. Normal bilateral ischial tuberosities. There are osteoarthritic changes of the femoral head with marginal osteophyte formation. There is osteoarthritic spur formation of the acetabular rim. There is mild articular joint space narrowing of the hip. RAD/HIP, UNI W/ Pelvis 2-3 Views IMPRESSION: Degenerative findings of the hips. Electronically Signed: Quan Lara MD at 17:00 EDT ,
== END 2021-12-27 23:59 | disposition home or self-care (01) ==
LOC: RAD 13:28
PROVIDERS: PCP Family Medicine Geriatric Medicine; Referring Provider Family Medicine Geriatric Medicine; Visit Provider Family Medicine Geriatric Medicine
DX: M25.559 Pain in unspecified hip (principal)
CPT/HCPCS: 73502

== ENCOUNTER 2022-01-14 15:46 | Outpatient (CLI) | payer MEDICARE, OTHER, SELFPAY | END 2022-01-14 23:59 | disposition home or self-care (01) | LOC: LABSPEC 15:47 | PROVIDERS: PCP Family Medicine Geriatric Medicine; Visit Provider Family Medicine Geriatric Medicine | DX: N39.0 Urinary tract infection, site not specified (principal) | CPT/HCPCS: 87086; 87088 ==

== ENCOUNTER 2022-01-19 10:12 | Emergency (ER) | payer MEDICARE, OTHER, SELFPAY ==
[2022-01-19 10:13] VITALS: BP 135/57; PULSE 89; RESP 16; TEMP 36.2; O2SAT 97; BMI 25.7
[2022-01-19 10:23] VITALS: BP 169/78; PULSE 91; RESP 13; O2SAT 98
--- NOTE | 2022-01-19 10:31 | RAD_ITS ---
STUDY: X-RAY - THORACIC SPINE REASON FOR EXAM: Male, 81 years old. Pain, fall TECHNIQUE: 3 view(s) of the thoracic spine were obtained. COMPARISON: None. FINDINGS: Normal kyphosis of the thoracic spine. There is no substantial scoliosis. Normal thoracic vertebrae and endplates. Normal disc space heights. The soft tissue structures are unremarkable. RAD/Thoracic Spine 2 Views IMPRESSION: No acute osseous injury. Electronically Signed: Sujatha Flores MD at 11:37 EDT ,
--- NOTE | 2022-01-19 10:31 | RAD_ITS ---
STUDY: X-RAY CHEST REASON FOR EXAM: Male, 81 years old. Left upper back pain TECHNIQUE: Frontal and lateral views of the chest. COMPARISON: 05/17/2021 FINDINGS: The lungs are clear and expanded. There is no demonstrated pleural abnormality. Normal size heart. Normal mediastinum and mauricio. Normal visualized pulmonary arteries. Normal visualized aortic arch and descending thoracic aorta. There is demineralization of the osseous structures. Normal visualized ribs, clavicles, and shoulders. There is no demonstrated abnormality of the visualized soft tissue structures of the upper abdomen. RAD/Chest PA and Lateral IMPRESSION: No acute cardiopulmonary process. Electronically Signed: Sujatha Flores MD at 11:37 EDT ,
--- NOTE | 2022-01-19 10:32 | EKG12_ITS ---
Test Reason : CP Blood Pressure : / mmHG Vent. Rate : 093 BPM Atrial Rate : 093 BPM P-R Int : 206 ms QRS Dur : 134 ms QT Int : 404 ms P-R-T Axes : 052 -11 022 degrees QTc Int : 502 ms Normal sinus rhythm Right bundle branch block Abnormal ECG Confirmed by YADIRA NEWTON, AZEB ([id number]), art editor ANTONIO JAIME ([id number]) on 01/22/2022 9:14:20 AM Referred By: TAYLOR Confirmed By:AZEB MAY MD
--- NOTE | 2022-01-19 10:33 | ED.VIS.BACK ---
HPI History of Present Illness Chief Complaint: Back Informant: patient Onset/Context/Timing Onset: Days (2) Context: - (Awoke with the pain) Timing: Continuous Quality: Aching Location: Thoracic (Mostly to the left, periscapular without radiation or chest discomfort) Current Severity: Mild Maximum Severity: Moderate Worsened by: improves with Movement Relieved by: Remaining Still Associated Symptoms Associated Symptoms: Negative for Numbness, Tingling, Radiation to Right Leg, Radiation to Left Leg, Abdominal Pain, Unable to Ambulate, Urinary Retention, Urinary Incontinence, Constipation and Fecal Incontinence Narrative Narrative: Patient woke up with left upper back discomfort that has persisted for the last 1-2 days. Worse with movement. No trouble breathing, no chest pain, no symptoms in his arms. If he takes a very deep breath he can feel it, but he is having no issues with breathing. He states he did nothing he can think of the day before, he has Parkinson's and does not do a lot of physical activity, however he then remembers that he fell 4 or 5 days ago and scraped his right lower leg when he fell inside his home to the floor. He does not recall any other injuries, just injured my pride. His aide comes 3 times a week, yesterday she came and took him for a long walk outside and he states he did fine although he did have the discomfort all day yesterday. It is no worse today, he just states I should have gone to the doctor yesterday. He denies any other symptoms or injury. [facility] Medical History Arthritis Cataracts, bilateral GERD (gastroesophageal reflux disease) Hx of blood clots Hypertension Kidney disease Parkinson disease Prostate disorder Home Medications Eliquis 5 mg PO BID 12/08/16 [History Last Taken 06/02/20] acetaminophen 1,000 mg PO Q6H PRN PRN #0 tab 05/18/21 [Rx Last Taken Unknown] alprazolam 0.5 mg PO 4X/DAY 7 Days #28 tab 05/18/21 [Rx Last Taken Unknown] pantoprazole 40 mg PO DAILY #0 tab 05/18/21 [Rx Last Taken Unknown] sennosides-docusate sodium [Stool Softener-Stimulant Laxat] 1 tab PO BID #0 tab 05/18/21 [Rx Last Taken Unknown] amlodipine 5 mg tablet 5 mg PO DAILY tab 08/09/21 [History Last Taken Unknown] cholecalciferol (vitamin D3) 25 mcg (1,000 unit) tablet 1,000 unit PO DAILY PRN 08/09/21 [History Last Taken Unknown] polyethylene glycol 3350 17 gram oral powder packet 17 g PO DAILY PRN ea 08/09/21 [History Last Taken Unknown] carbidopa 25 mg-levodopa 100 mg tablet 1 tab PO .QID #120 tab 10/22/21 [Rx Last Taken Unknown] diclofenac sodium 1 % topical gel 4 g TOPICAL DAILY PRN #100 g 10/22/21 [Rx Last Taken Unknown] duloxetine 30 mg capsule,delayed release 30 mg PO DAILY #7 cap 10/22/21 [Rx Last Taken Unknown] duloxetine 60 mg capsule,delayed release 60 mg PO DAILY #30 cap 10/22/21 [Rx Last Taken Unknown] fludrocortisone 0.1 mg tablet See Rx Instructions .ROUTE .COMPLEX #18 tab 10/22/21 [Rx Last Taken Unknown] Allergy/AdvReac Type Severity Reaction Status Date / Time prednisone Allergy Other Verified 01/19/22 10:23 Family History Father CVA (cerebral vascular accident) Surgical History H/O rotator cuff surgery History of adenoidectomy History of appendectomy History of tonsillectomy Social History household members: none Smoking Status: Current every day smoker tobacco type: cigarettes Tobacco: How many years used: 25 Electronic Cigarette Use: not used how long ago did patient quit smoking: quit in 1988 second hand exposure: No alcohol intake: former details: 1988 substance use type: does not use ROS ROS ED Constitutional Constitutional ED: Denies chills or fever(s) Eyes Eyes: Denies change in vision or diplopia ENT ENT ED: Denies rhinorrhea or sore throat Cardiovascular Cardiovascular: Denies chest pain or palpitations Respiratory/Chest Respiratory/Chest: Denies cough or dyspnea Gastrointestinal Gastrointestinal: Denies abdominal pain, diarrhea, nausea or vomiting Genitourinary Genitourinary ED: Denies dysuria or hematuria Musculoskeletal Musculoskeletal: Reports back pain; Denies neck pain Integumentary Reports Abrasions; Denies abscess or rash Neurologic Neurologic: Denies headache(s), paresthesias or weakness Psychiatric Psychiatric: Denies anxiety or suicidal thoughts EXAM Physical Exam Const Vital Signs: 01/19/22 10:13 01/19/22 10:23 01/19/22 10:28 Temperature 97.2 F L Temperature Source Temporal Pulse Rate 89 91 Respiratory Rate 16 13 Respiratory Effort Normal Non-Labored Respiratory Pattern Normal Blood Pressure 135/57 H 169/78 H Blood Pressure Mean 83 108 Pulse Ox 97 98 Oxygen Delivery Method Room Air Room Air Positive well nourished and well developed General Appearance ED: well developed and NAD HEENT Reports moist mucous membranes normocephalic and atraumatic Eyes PERRL and EOMs intact bilaterally Neck full ROM and supple Resp normal respiratory effort and clear to auscultation bilaterally Cardio regular rate, regular rhythm and no murmurs GI non-tender and non-distended Auscultation: normoactive bowel sounds Palpation: soft Back/Spine no CVA tenderness and normal ROM General Back: other FROM Cervical Spine: cervical ROM normal and Negative for cervical spine tenderness Thoracic Spine / Upper Back: normal to inspection, thoracic ROM normal, pain with ROM, thoracic spinal tenderness T2, T3, T4, T5 and T6 and paraspinal muscle tenderness left (Rhomboids area) Lumbar Spine / Lower Back: normal to inspection and lumbar ROM normal; Negative for lumbar spinal tenderness or paraspinal muscle tenderness Pelvis: buttocks normal Extremity normal to inspection and full ROM General Extremety ED: Negative for edema, pulses abnormal or tenderness General Extremity: Negative for edema or pulses abnormal Neuro oriented x3, CN's II-XII intact bilaterally and no sensory deficits noted Sensorium / Orientation: awake and alert Motor Exam: strength 5/5 throughout Skin no rashes or lesions noted Skin Narrative: Healing abrasions right lower leg nontender no signs of infection or abscess MDM MDM MDM Narrative Medical decision making narrative: Nursing triage obtained an EKG given his history of a pulmonary embolus and his age, it shows no acute injury, stable right bundle branch block, see below. I obtained a chest x-ray as well as a thoracic spine x-ray. On my interpretation, 2 views of the chest and 2 views of the thoracic spine showed no acute abnormality. Radiology in agreement. I reassured the patient I suspect this is muscular strain as a result of his fall. I reassured him that mild muscle injuries can present in a relatively delayed onset within a day or 2 and he is in that timeframe and he agrees. Supportive care advised, will be offered nonprescription analgesics. Radiography Diagnostic Testing: Clinical Impression(s) from Imaging Studies Chest X-Ray 01/19/22 10:31 IMPRESSION: No acute cardiopulmonary process. Electronically Signed: Sujatha Flores MD at 11:37 EDT , Thoracic Spine X-Ray 01/19/22 10:31 IMPRESSION: No acute osseous injury. Electronically Signed: Sujatha Flores MD at 11:37 EDT , EKG Initial EKG: Attestation: I personally reviewed and interpreted this EKG as follows: Interpretation: Sinus Rhythm, No Acute Injury Pattern and RBBB Prior EKG tracings: available for review Prior: Unchanged (Prior EKG from 2013 shows no right bundle branch block, but telemetry strip from 2019 likely indicates a RBBB) Discharge Plan Triage Chief Complaint: Back Other Complaint: Chest Pain ED Provider: Delfino Cloud Dx/Rx/DC Orders Clinical Impression: Acute thoracic myofascial strain, Accidental fall, Abrasion of anterior right lower leg Instructions: ED Back Sprain/Strain Prescriptions: No Action polyethylene glycol 3350 17 gram powder in packet 17 g PO DAILY PRNRF: 0 amlodipine 5 mg tablet 5 mg PO DAILY RF: 0 duloxetine 60 mg capsule,delayed release(DR/EC) 60 mg PO DAILY Qty: 30 RF: 3 duloxetine 30 mg capsule,delayed release(DR/EC) 30 mg PO DAILY Qty: 7 RF: 0 fludrocortisone 0.1 mg tablet See Rx Instructions .ROUTE .COMPLEX Qty: 18 RF: 3 carbidopa-levodopa 25-100 mg tablet 1 tab PO .QID Qty: 120 RF: 2 diclofenac sodium 1 % gel 4 g topical DAILY PRN (Reason: joint pain) Qty: 100 RF: 2 Eliquis 5 MG tablet 5 mg PO BID RF: 0 cholecalciferol (vitamin D3) 25 mcg (1,000 unit) tablet 1,000 unit PO DAILY PRN (Reason: Supplement) RF: 0 acetaminophen 500 mg Tablet 1,000 mg PO Q6H PRN PRN (Reason: Pain Score 1-10) Qty: 0 RF: 0 pantoprazole 40 mg Tablet,Delayed Release (Dr/Ec) 40 mg PO DAILY Qty: 0 RF: 0 sennosides-docusate sodium [Stool Softener-Stimulant Laxat] 8.6-50 mg Tablet 1 tab PO BID Qty: 0 RF: 0 alprazolam 0.5 mg Tablet 0.5 mg PO 4X/DAY 7 Days Qty: 28 RF: 0 Primary Care Provider: Roberto Mullen Chi Referrals: Roberto Mullen Chi, MD [Primary Care Provider] - 3-5 Days if not improving Disposition Disposition: Home, Self Care
[2022-01-19] MEDS: Acetaminophen 325 MG Tablet 650 MG PO (11:56)
[2022-01-19 12:05] VITALS: BP 145/67; PULSE 71; RESP 16; O2SAT 98
== END 2022-01-19 12:05 | disposition home or self-care (01) ==
LOC: ED 11:04
PROVIDERS: Emergency Provider Emergency Medicine; PCP Family Medicine Geriatric Medicine; Visit Provider Emergency Medicine
DX: S29.019A Strain of muscle and tendon of unspecified wall of thorax, initial encounter (principal); G20 Parkinson's disease; F17.210 Nicotine dependence, cigarettes, uncomplicated; S80.811A Abrasion, right lower leg, initial encounter; I10 Essential (primary) hypertension; K21.9 Gastro-esophageal reflux disease without esophagitis; W01.10XA Fall on same level from slipping, tripping and stumbling with subsequent striking against unspecified object, initial encounter; Y92.009 Unspecified place in unspecified non-institutional (private) residence as the place of occurrence of the external cause
CPT/HCPCS: 71046; 72070; 93005; 99283; A4216

== ENCOUNTER → 2022-01-22 | Outpatient (CLI) | payer MEDICARE, OTHER, SELFPAY ==
[2022-01-22 18:20] LABS: Vitamin B12 391 pg/mL (211-911)
[2022-02-04 13:24] LABS: Vitamin B1, Thiamine 181.1 nmol/L (66.5-200.0)
== END | disposition home or self-care (01) ==
LOC: MTLAB 15:04
PROVIDERS: PCP Family Medicine Geriatric Medicine; Referring Provider Psychiatry & Neurology Neurology; Visit Provider Psychiatry & Neurology Neurology
DX: G31.84 Mild cognitive impairment of uncertain or unknown etiology (principal)
CPT/HCPCS: 36415; 82607; 82746; 84425

== ENCOUNTER → 2022-01-31 | Outpatient (CLI) | payer MEDICARE, OTHER, SELFPAY ==
--- NOTE | 2022-01-31 09:10 | RAD_ITS ---
INDICATION: OTHER MICROSCOPIC HEMATURIA EXAMINATION/TECHNIQUE: X-RAY - XR Abdomen 1 View COMPARISON: None FINDINGS: BOWEL GAS PATTERN: Non-obstructive. No bowel or stomach distention. FREE AIR: Not assessed on a single supine view. ORGANOMEGALY: Not seen. CALCIFICATIONS: 8 mm calcification projects over the left lower renal pole. LOWER CHEST: No acute pathology. BONES AND SOFT TISSUES: No acute pathology. Degenerative changes of the spine and pelvis. RAD/Abdomen Single View IMPRESSION: 8 mm calculus in the left lower renal pole. Electronically Signed: Blair Dubois MD at 17:29 EDT ,
== END | disposition home or self-care (01) ==
LOC: RAD 09:01
PROVIDERS: PCP Family Medicine Geriatric Medicine; Referring Provider Registered Nurse; Visit Provider Registered Nurse
DX: R31.29 Other microscopic hematuria (principal)
CPT/HCPCS: 74018

== ENCOUNTER → 2022-02-13 | Outpatient (CLI) | payer MEDICARE, OTHER, SELFPAY ==
--- NOTE | 2022-02-13 14:24 | CT_ITS ---
STUDY: CT ABDOMEN AND PELVIS WITHOUT CONTRAST REASON FOR EXAM: Male, 81 years old. HX URINARY STONES RADIATION DOSAGE (If Supplied By Facility): CTDIvol = ( 6.77 ) mGy, DLP = ( 357.09 ) mGycm TECHNIQUE: Transaxial images were obtained from the dome of the diaphragm to the symphysis pubis without oral contrast, and without intravenous contrast. Sagittal and coronal images were reconstructed. Individualized dose optimization techniques were used for this CT. COMPARISON: Comparison is made with prior study dated 10/29/2021. FINDINGS: Mild linear scarring at the right lung base. Coronary artery calcification. Normal liver. Normal gallbladder and extrahepatic biliary system. Normal spleen. Normal pancreas. Normal bilateral adrenal glands. Stable 3.1 cm cyst in the midportion of the left kidney. Mild degree of left hydronephrosis and proximal left hydroureter due to a 5.5 mm calculus in the midportion of the left ureter. Normal visualized stomach. Normal small intestine. Moderate amount of fecal material is seen in the right hemicolon. There are multiple colonic diverticula consistent with diverticulosis. The appendix is visualized and appears normal. There is diffuse atherosclerotic calcification of the abdominal aorta, without a demonstrated aneurysm. Normal inferior vena cava. Normal retroperitoneum. Mild degree of bladder wall thickening. There is enlargement of the prostate gland. It measures 4.1 cm x 4.3 cm. Normal abdominal wall. There are diffuse degenerative changes of the visualized lumbar spine. Degenerative changes of the bilateral sacroiliac joints. CT/Abdomen/Pelvis without Cont IMPRESSION: 5.5 mm calculus in the midportion of the left ureter causing mild degree of left hydronephrosis and left hydroureter. Stable right renal cyst. Prostatic enlargement with indentation of the bladder base. Mild degree of bladder wall thickening. Electronically Signed: Jerry Lewis MD at 15:09 EDT ,
== END | disposition home or self-care (01) ==
LOC: CT 14:23
PROVIDERS: PCP Family Medicine Geriatric Medicine; Referring Provider Urology; Visit Provider Urology
DX: Z87.442 Personal history of urinary calculi (principal)
CPT/HCPCS: 74176

== ENCOUNTER 2022-02-20 12:40 | Day surgery (SDC) | payer MEDICARE, OTHER, SELFPAY ==
[2022-02-20] VITALS (8 sets, daily range): BP systolic 161–168; BP diastolic 70–78; PULSE 92–98; RESP 16–17; TEMP 37.1–37.6; O2SAT 95–99; BMI 24.5
[2022-02-20] MEDS: Lactated Ringers 1,000 ML 15 ML IV (12:50)
[2022-02-20] MEDS: Cefazolin 2 GM in 0.9% Normal Saline 100 ML IV (13:17)
--- NOTE | 2022-02-20 13:50 | PCM.HP.STD ---
HPI - General HPI Narrative ANDREW BLANC, is a 81 M who presents for treatment of left ureteral calculi PFSH Medical History Arthritis Cancer Cataracts, bilateral Gastric reflux GERD (gastroesophageal reflux disease) History of diverticulitis History of stress test Hx of blood clots Hypertension Kidney disease Parkinson disease Prostate disorder Pulmonary embolism Smoker Syncope Wears dentures Wears glasses Home Medications Eliquis 5 mg PO BID 12/08/16 [History Last Taken 02/17/22] acetaminophen 1,000 mg PO Q6H PRN PRN #0 tab 05/18/21 [Rx Last Taken Unknown] alprazolam 0.5 mg PO 4X/DAY 7 Days #28 tab 05/18/21 [Rx Last Taken 02/20/22] amlodipine 5 mg tablet 5 mg PO DAILY tab 08/09/21 [History Last Taken 02/20/22] cholecalciferol (vitamin D3) 25 mcg (1,000 unit) tablet 1,000 unit PO DAILY PRN 08/09/21 [History Last Taken Unknown] polyethylene glycol 3350 17 gram oral powder packet 17 g PO DAILY PRN ea 08/09/21 [History Last Taken Unknown] diclofenac sodium 1 % topical gel 4 g TOPICAL DAILY PRN #100 g 10/22/21 [Rx Last Taken Unknown] carbidopa 25 mg-levodopa 100 mg tablet 1 tab PO .QID #120 tab 01/22/22 [Rx Last Taken 02/20/22] doxepin 10 mg PO QHS 02/18/22 [History Last Taken Unknown] duloxetine [Cymbalta] 60 mg PO DAILY 02/18/22 [History Last Taken Unknown] oxycodone-acetaminophen 1 tab PO Q6H PRN 7 Days #10 tab 02/20/22 [Rx Last Taken Unknown] Allergy/AdvReac Type Severity Reaction Status Date / Time prednisone Allergy Other Verified 02/20/22 13:14 Family History Father CVA (cerebral vascular accident) Surgical History H/O rotator cuff surgery History of adenoidectomy History of appendectomy History of tonsillectomy Hx of cystoscopy Hx of facial fracture repair Social History household members: none Smoking Status: Current every day smoker tobacco type: cigarettes Tobacco: How many years used: 25 Electronic Cigarette Use: not used how long ago did patient quit smoking: quit in 1988 second hand exposure: No alcohol intake: former details: 1988 substance use type: does not use Vital Signs Vital Signs Vital Signs: 02/20/22 13:16 Temperature 99.7 F H Temperature Source Temporal Pulse Rate 98 Respiratory Rate 17 Respiratory Pattern Normal Blood Pressure 161/78 H Blood Pressure Mean 105 Blood Pressure Source Monitor Blood Pressure Position Semi-Fowlers Blood Pressure Location Left Arm Pulse Ox 98 Oxygen Delivery Method Room Air Weight Weight: 69 kg Body Mass Index (BMI) 24.5
--- NOTE | 2022-02-20 13:51 | PCM.DC ---
Discharge Instructions Diet Discharge Diet: No restrictions Activity Discharge Activity: Return to Normal Activity and May Not Drive (while taking narcotic pain medications.) Dressing / Incision Call your doctor if you observe: Fever of 101 or Higher Follow Up Care Please Follow Up With: Jonas Hess MD When: Call [phone] for an appointment Test Results: Test results from this visit will be discussed in further detail at your follow-up appointment, if applicable. Discharge Plan Admission Primary Reason for Your Visit: left ureteroscopy laser stone and stent Attending Provider: Jonas Hess Primary Care Provider: Roberto Mullen Chi Discharge Orders/Prescriptions Prescriptions: New oxycodone-acetaminophen 5-325 mg tablet 1 tab PO Q6H PRN (Reason: pain) 7 Days Qty: 10 RF: 0 Continued polyethylene glycol 3350 17 gram powder in packet 17 g PO DAILY PRN (Reason: STOOL SOFTENER) RF: 0 amlodipine 5 mg tablet 5 mg PO DAILY RF: 0 diclofenac sodium 1 % gel 4 g topical DAILY PRN (Reason: joint pain) Qty: 100 RF: 2 carbidopa-levodopa 25-100 mg tablet 1 tab PO .QID Qty: 120 RF: 6 Eliquis 5 MG tablet 5 mg PO BID RF: 0 cholecalciferol (vitamin D3) 25 mcg (1,000 unit) tablet 1,000 unit PO DAILY PRN (Reason: Supplement) RF: 0 acetaminophen 500 mg Tablet 1,000 mg PO Q6H PRN PRN (Reason: Pain Score 1-10) Qty: 0 RF: 0 alprazolam 0.5 mg Tablet 0.5 mg PO 4X/DAY 7 Days Qty: 28 RF: 0 duloxetine [Cymbalta] 60 mg capsule,delayed release(DR/EC) 60 mg PO DAILY RF: 0 doxepin 10 mg capsule 10 mg PO QHS RF: 0 Referrals / Follow Up: Jonas Hess MD [STAFF PHYSICIAN] - Roberto Mullen Chi, MD [Primary Care Provider] - Disposition Disposition (needs filled in before D/C Order can be placed): Home, Self Care
--- NOTE | 2022-02-20 14:44 | OP.PCM_ITS ---
Report of Operation Date of Procedure: 02/20/22 Pre-Operative Diagnosis: Left renal calculi Post-Operative Diagnosis: The same Surgery/Procedure Performed:: Left ureteroscopy laser lithotripsy of stone, no stent, balloon dilation of left ureter, left retrograde pyelogram interpreted fluoroscopic images. Description of Surgical Findings:: This is a patient who presents to the hospital for treatment for an obstructing distal ureter calculi. I discussed with the patient how the surgery would be performed and we reviewed the risks and benefits of the surgery. The risk and benefits include the risk of failure to remove the stone completely and that the patient may need multiple procedures. We discussed the risk of an infection, the risk of bleeding. We discussed the very rare risk of serious complicated injury to the ureter. The patient understands that if the stone is not able to be removed safely that we may abort the procedure and place a stent. After full discussion and all questions address with the patient the consent form was signed the side was marked appropriately and the patient was taken back to the operating room for the procedure. The patient was taken back to the operating room. After induction of anesthesia by the anesthesiology team the patient was placed in dorsolithotomy position. The genitals were prepped and draped in usual sterile fashion. I went into the bladder with a 21 Frisian rigid cystourethroscope through the urethra. Upon entering the bladder I inspected the trigone the left and right ureteral orifice and the bladder itself. I then cannulated the Left ureteral orifice and advanced a 0.038 Glidewire up into the kidney. Then over the Glidewire I advanced a 5 Fr Ureteral catheter and performed a retrograde pyelogram with about 10cc of contrast, to delineate the anatomy and identify the stone location. Then a ureteral balloon dilator was advanced over the wire and the distal ureter was balloon dilated with a 12 Fr x 5cm balloon dilator. After 3 minutes of dilating the ureter the balloon was backloaded off the 0.038 glidewire then the safety wire was left in place. I then placed a second 0.038 Guidewire as a working wire and over the working 0.038 guidewire I went in with a Flexible 7.9fr ureteroscope. I was able to go inside with the 7.9Fr flexible utereroscope and I pulled out the working guidewire and then through the 7.9 fr flexible ureteroscope I ascended up the ureter with direct visualization until the stone was located, then I engaged the stone with laser lithotripsy using a 270miron laser fiber with energy setting of 6 Hertz and 0.6 J until the stone was lasered into tiny little pieces that should pass on their own. After successful laser lithotripsy of the stone and stone fragements, a retrograde pyelogram was performed with 10cc of contrast and no extravasation of contrast or perforation was identified in the ureter. I then backed out of the ureter and remove the ureteroscope, I then drained the patient's bladder and the cysto scope was removed and the patient was taken back to the recovery room in good position. The patient was given discharge instructions to call the office for instructions on when to come to the office for a check up. Surgeon: daniella Type of Anesthesia: General Drains: none Admit VTE Documentation VTE Present on Admission: No VTE Mechan Device Prophylaxis: SCD's VTE Pharm Prophylaxis ordered?: No
== END 2022-02-20 16:05 | disposition home or self-care (01) ==
LOC: SDC 12:41 → AC 12:42
PROVIDERS: PCP Family Medicine Geriatric Medicine; Referring Provider Urology; Visit Provider Urology
PROC: 0TJ98ZZ Inspection of Ureter, Via Natural or Artificial Opening Endoscopic (ICD-10-PCS; CPT 52352; principal; 2022-02-20 14:45)
DX: N20.2 Calculus of kidney with calculus of ureter (principal); G20 Parkinson's disease; Z79.01 Long term (current) use of anticoagulants; F17.210 Nicotine dependence, cigarettes, uncomplicated; I10 Essential (primary) hypertension; Z87.442 Personal history of urinary calculi; N41.0 Acute prostatitis; R31.21 Asymptomatic microscopic hematuria; F41.9 Anxiety disorder, unspecified; F32.A Depression, unspecified; Z87.19 Personal history of other diseases of the digestive system
CPT/HCPCS: 52353; 00918; 76000; J7120; C1769; J2405

== ENCOUNTER → 2022-02-28 | Outpatient (CLI) | payer MEDICARE, OTHER, SELFPAY ==
--- NOTE | 2022-02-28 07:59 | RAD_ITS ---
STUDY: X-RAY - ABDOMEN/PELVIS REASON FOR EXAM: Male, 81 years old. BERENICE OF KIDNEY TECHNIQUE: Single AP view of the abdomen / pelvis. COMPARISON: 02/13/2022 FINDINGS: Normal visualized lung bases. There is an unremarkable bowel gas pattern. There is no demonstrated free abdominal air. The visualized liver, spleen and kidneys are grossly normal in size and morphology. Normal soft tissue structures. There are diffuse degenerative changes of the visualized lumbar spine. RAD/Abdomen Single View IMPRESSION: The left ureteral calculus seen on prior CT is no longer visible. Electronically Signed: Rodney Ruelas MD ([place]) at 16:10 EDT ,
== END | disposition home or self-care (01) ==
LOC: RAD 07:58
PROVIDERS: PCP Family Medicine Geriatric Medicine; Referring Provider Urology; Visit Provider Urology
DX: N20.0 Calculus of kidney (principal)
CPT/HCPCS: 74018

== ENCOUNTER 2022-03-10 09:28 | Emergency (ER) | payer MEDICARE, OTHER, SELFPAY ==
[2022-03-10 09:30] VITALS: BP 116/58; PULSE 84; RESP 17; TEMP 36.6; O2SAT 95; BMI 25.0
--- NOTE | 2022-03-10 09:41 | CT_ITS ---
STUDY: CT ABDOMEN AND PELVIS WITH CONTRAST REASON FOR EXAM: Male, 81 years old. Left lower quadrant pain. RADIATION DOSAGE (If Supplied By Facility): CTDIvol = ( 14.87 ) mGy, DLP = ( 430.04 ) mGycm TECHNIQUE: Transaxial images were obtained from the dome of the diaphragm to the symphysis pubis without oral contrast. IV 100mL [id number]-[id number] was administered. Sagittal and coronal images were reconstructed. Individualized dose optimization techniques were used for this CT. COMPARISON: 02/13/2022. FINDINGS: The visualized portions of lung bases demonstrate mild atelectatic changes in the right lower lobe. The visualized portions of the heart are within normal limits. Normal liver. Normal gallbladder and extrahepatic biliary system. Normal spleen. Normal pancreas. Normal bilateral adrenal glands. Right renal cysts unchanged, the largest measures about 3 cm. Heterogeneous lower pole of the left kidney with perinephric stranding. Mild enhancement of the left renal pelvis and proximal ureter. No evidence of recurrent) visualized. No definite hydronephrosis. Normal visualized stomach. Normal small intestine. Diverticulosis of the sigmoid and descending colon. Focal inflammatory changes and thickening of the descending colon consistent with acute diverticulitis. No evidence of free air or drainable abscess. There are surgical clips in the region of the appendix consistent with a prior appendectomy. There is diffuse atherosclerotic calcification of the abdominal aorta, without a demonstrated aneurysm. Normal inferior vena cava. Normal retroperitoneum. Normal urinary bladder. Markedly enlarged prostate. Correlation with PSA level is recommended. Very small bilateral inguinal hernias containing fat. Degenerative changes in the spine. CT/Abdomen/Pelvis W IV Cont ONLY IMPRESSION: 1. Chronic diverticulosis with focal acute diverticulitis of the descending colon. No evidence of drainable abscess. 2. Heterogeneous lower pole of the left kidney with perinephric stranding and mild enhancement of the left renal pelvis. Pyelonephritis cannot be entirely excluded. 3. Fecal retention concerning for constipation. 4. Enlarged prostate. Correlation with PSA level is recommended. 5. Small bilateral inguinal hernias containing fat. Electronically Signed: Kavon Davison MD at 10:48 EDT ,
--- NOTE | 2022-03-10 09:45 | EX.ED.DYSGE1 ---
HPI <MAYNOR Cevallos - Last Filed: 03/10/22 11:30> History of Present Illness Chief Complaint: Abd Pain Narrative Narrative: 81-year-old male with history of Parkinson's disease, history of diverticulitis presents the emergency department left lower quadrant abdominal pain that began yesterday morning. Patient also has history of pulmonary embolus, he is on Eliquis 5 mg twice a day he denies any missed doses. Patient states that yesterday he developed left lower quad abdominal pain that came on insidiously. He states this morning, it was much worse, he took a Vicodin from a past surgery and did not help him at all. Patient states that he did have popcorn 3 days ago, patient states he has not had popcorn in greater than 20 years. He states that this might have caused a flare. He denies any fevers or chills PFSH <MAYNOR Cevallos - Last Filed: 03/10/22 11:30> PFSH Medical History (Updated 03/10/22 @ 11:26 by MAYNOR Cevallos) Arthritis Cancer Cataracts, bilateral Gastric reflux GERD (gastroesophageal reflux disease) History of diverticulitis History of stress test Hx of blood clots Hypertension Kidney disease Parkinson disease Prostate disorder Pulmonary embolism Smoker Syncope Wears dentures Wears glasses Home Medications Eliquis 5 mg PO BID 12/08/16 [History Last Taken 02/17/22] acetaminophen 1,000 mg PO Q6H PRN PRN #0 tab 05/18/21 [Rx Last Taken Unknown] alprazolam 0.5 mg PO 4X/DAY 7 Days #28 tab 05/18/21 [Rx Last Taken 02/20/22] amlodipine 5 mg tablet 5 mg PO DAILY tab 08/09/21 [History Last Taken 02/20/22] cholecalciferol (vitamin D3) 25 mcg (1,000 unit) tablet 1,000 unit PO DAILY PRN 08/09/21 [History Last Taken Unknown] polyethylene glycol 3350 17 gram oral powder packet 17 g PO DAILY PRN ea 08/09/21 [History Last Taken Unknown] diclofenac sodium 1 % topical gel 4 g TOPICAL DAILY PRN #100 g 10/22/21 [Rx Last Taken Unknown] carbidopa 25 mg-levodopa 100 mg tablet 1 tab PO .QID #120 tab 01/22/22 [Rx Last Taken 02/20/22] doxepin 10 mg PO QHS 02/18/22 [History Last Taken Unknown] duloxetine [Cymbalta] 60 mg PO DAILY 02/18/22 [History Last Taken Unknown] oxycodone-acetaminophen 1 tab PO Q6H PRN 7 Days #10 tab 02/20/22 [Rx Last Taken Unknown] amoxicillin-pot clavulanate 1 tab PO BID #20 tab 03/10/22 [Rx Last Taken Unknown] hydrocodone-acetaminophen 1 tab PO Q6H PRN 3 Days #10 tab 03/10/22 [Rx Last Taken Unknown] Allergy/AdvReac Type Severity Reaction Status Date / Time prednisone Allergy Other Verified 03/10/22 09:29 Family History Father CVA (cerebral vascular accident) Surgical History H/O rotator cuff surgery History of adenoidectomy History of appendectomy History of tonsillectomy Hx of cystoscopy Hx of facial fracture repair Social History household members: none Smoking Status: Current every day smoker tobacco type: cigarettes Tobacco: How many years used: 25 Electronic Cigarette Use: not used how long ago did patient quit smoking: quit in 1988 second hand exposure: No alcohol intake: former details: 1988 substance use type: does not use ROS <MAYNOR Cevallos - Last Filed: 03/10/22 11:30> ROS ED ROS Narrative Constitutional: Negative for fever, chills, weight loss, weakness Eyes: Negative for vision loss, vision change, double vision ENT: Negative for any sore throat, ear pain, congestion Cardiovascular: Negative for any chest pain, tightness, palpitations Respiratory: Negative for any cough, sputum production, hemoptysis, dyspnea, dyspnea on exertion, orthopnea Gastrointestinal: Negative for any vomiting, diarrhea, constipation, blood in stool, blood in vomit. Positive left lower quadrant abdominal pain, nausea : Negative for any urinary frequency, dysuria, retention, blood in urine Muscle skeletal: Negative for any muscle joint pain, stiffness, myalgias, arthralgias, neck pain, back pain Neurological: Negative for any headache, syncope, numbness or tingling, dizziness Skin: Negative for any rashes, lumps, itching, abrasions, lacerations Psychiatric: Negative for any depression, anxiety, stress, suicidal ideation, homicidal ideation Hematologic: Negative for any easy bruising, excessive bruising, easy bleeding Allergies: Negative for any eczema, hives, rash EXAM <MAYNOR Cevallos - Last Filed: 03/10/22 11:30> Physical Exam Narrative Exam Narrative: Vital signs reviewed. HEET: Head normocephalic atraumatic, TMs clear bilaterally. Posterior pharynx is clear, moist mucous membranes. Nares clear bilaterally. Neck: Supple with no lymphadenopathy or tenderness. No signs of meningismus, negative jolt sign. Cardiac: Regular rate and rhythm no murmurs gallops or rubs, equal peripheral pulses bilaterally. Respiratory: Lungs clear to auscultation bilaterally. No chest tenderness. Abdomen: Soft, nondistended. No abdominal bruit or pulsatile masses. No hepatosplenomegaly. Marked abdominal tenderness to the left lower quadrant Extremities: No peripheral edema, no signs of gross trauma or deformity. Active full range of motion of all extremities. Neuro: Cranial nerves II through XII intact, no focal neurological deficits. Skin: Clean dry and intact with no rash, purpura, petechiae, vesicles or pustules. Backs/flank: No CVA tenderness, no midline spinal tenderness, no deformity. Psych: Normal mood and affect. No SI, HI or acute psychosis. Const Vital Signs: 03/10/22 09:30 Temperature 97.8 F Temperature Source Temporal Pulse Rate 84 Respiratory Rate 17 Blood Pressure 116/58 L Blood Pressure Mean 77 Pulse Ox 95 Oxygen Delivery Method Room Air Positive well nourished and well developed General Appearance ED: well developed <Dr. Lakhwinder Ho MD - Last Filed: 03/10/22 11:53> Physical Exam Const Vital Signs: 03/10/22 09:30 Temperature 97.8 F Temperature Source Temporal Pulse Rate 84 Respiratory Rate 17 Blood Pressure 116/58 L Blood Pressure Mean 77 Pulse Ox 95 Oxygen Delivery Method Room Air MDM <MAYNOR Cevallos - Last Filed: 03/10/22 11:30> [facility] Narrative Medical decision making narrative: Patient appears well, patient appears nontoxic, vital signs are stable. Patient presents the emergency department with left lower quad abdominal pain concerning for diverticulitis as he has had in the past. Patient did receive a full abdominal work-up concerning for diverticulitis, patient CBC was unremarkable, patient's chemistries show slight renal insufficiency however he does have history of this. Patient CT of the abdomen pelvis does show a chronic diverticulosis with focal acute diverticulitis of the descending colon. No evidence of drainable abscess. There is some left kidney para phrenic stranding and mild enhancement of the left renal pelvis, patient has no urinary symptoms. Patient's slightly constipated. Patient does have enlarged prostate he knows about this. Patient will be placed on Augmentin. Patient did respond well to IV fluids, IV Zofran, IV morphine. Patient will be given a couple [place] for home. At this time, patient will follow up with his PCP, instructed return for any worsening abdominal pain, fever chills nausea vomiting. Lab Data Attestation: I reviewed the patient's lab results. Labs: Laboratory Results - last 24 hr 03/10/22 03/10/22 09:54 09:54 WBC 10.4 RBC 4.39 L Hgb 14.3 Hct 41.4 MCV 94.3 H MCH 32.6 H MCHC 34.5 RDW Std Deviation 42.8 RDW Coeff of Maritza 12.4 Plt Count 210 MPV 8.2 Immature Gran % (Auto) 0.600 Neut % (Auto) 62.5 Lymph % (Auto) 25.9 [place] % (Auto) 8.7 Eos % (Auto) 1.7 Baso % (Auto) 0.6 Absolute Neuts (auto) 6.5 Absolute Lymphs (auto) 2.68 Nucleated RBC % 0 Sodium 139 Potassium 3.9 Chloride 105 Carbon Dioxide 31.0 Anion Gap 3 L BUN 18 Creatinine 1.51 H Estim Creat Clear Calc 35.21 Est GFR (MDRD) Af Amer 57 L Est GFR (MDRD) Non-Af 47 L BUN/Creatinine Ratio 11.9 Glucose 110 H Calcium 8.8 Radiography Diagnostic Testing: Clinical Impression(s) from Imaging Studies Abdomen/Pelvis CT 03/10/22 09:41 IMPRESSION: 1. Chronic diverticulosis with focal acute diverticulitis of the descending colon. No evidence of drainable abscess. 2. Heterogeneous lower pole of the left kidney with perinephric stranding and mild enhancement of the left renal pelvis. Pyelonephritis cannot be entirely excluded. 3. Fecal retention concerning for constipation. 4. Enlarged prostate. Correlation with PSA level is recommended. 5. Small bilateral inguinal hernias containing fat. Electronically Signed: Kavon Davison MD at 10:48 EDT , <Dr. Lakhwinder Ho MD - Last Filed: 03/10/22 11:53> [facility] MDM Narrative Medical decision making narrative: I have personally performed a face to face assessment of the patient and have reviewed the JESSIE Note. I performed a substantive portion of the visit including all aspects of the following. My yan findings include: History is remarkable for left lower quadrant pain that started yesterday. He has history of diverticulitis. He denies nausea or vomiting. He denies fever or chills. He denies urologic symptoms. Exam is remarkable for significant tenderness in the left lower quadrant. There is mild guarding. There is no peritoneal findings or rigidity. Bowel sounds are diminished. There is no CVA tenderness noted. There is no evidence of inguinal hernia. Medical Decision Making patient's history and physical is consistent with diverticulitis. Patient was treated with Augmentin. CT reveals diverticulitis. White count is normal. Differential is normal. Creatinine is slightly higher than prior results. Since he does have renal insufficiency we will treat with Augmentin versus ciprofloxacin and metronidazole. There is no evidence of microperforation. Patient is a candidate for outpatient treatment. Other additions or changes: None Lab Data Labs: Laboratory Results - last 24 hr 03/10/22 03/10/22 09:54 09:54 WBC 10.4 RBC 4.39 L Hgb 14.3 Hct 41.4 MCV 94.3 H MCH 32.6 H MCHC 34.5 RDW Std Deviation 42.8 RDW Coeff of Maritza 12.4 Plt Count 210 MPV 8.2 Immature Gran % (Auto) 0.600 Neut % (Auto) 62.5 Lymph % (Auto) 25.9 [place] % (Auto) 8.7 Eos % (Auto) 1.7 Baso % (Auto) 0.6 Absolute Neuts (auto) 6.5 Absolute Lymphs (auto) 2.68 Nucleated RBC % 0 Sodium 139 Potassium 3.9 Chloride 105 Carbon Dioxide 31.0 Anion Gap 3 L BUN 18 Creatinine 1.51 H Estim Creat Clear Calc 35.21 Est GFR (MDRD) Af Amer 57 L Est GFR (MDRD) Non-Af 47 L BUN/Creatinine Ratio 11.9 Glucose 110 H Calcium 8.8 Radiography Diagnostic Testing: Clinical Impression(s) from Imaging Studies Abdomen/Pelvis CT 03/10/22 09:41 IMPRESSION: 1. Chronic diverticulosis with focal acute diverticulitis of the descending colon. No evidence of drainable abscess. 2. Heterogeneous lower pole of the left kidney with perinephric stranding and mild enhancement of the left renal pelvis. Pyelonephritis cannot be entirely excluded. 3. Fecal retention concerning for constipation. 4. Enlarged prostate. Correlation with PSA level is recommended. 5. Small bilateral inguinal hernias containing fat. Electronically Signed: Kavon Davison MD at 10:48 EDT , Discharge Plan Triage Chief Complaint: Abd Pain ED Midlevel Provider: Myles Lopez ED Provider: Lakhwinder Ho Dx/Rx/DC Orders Clinical Impression: Acute diverticulitis Instructions: ED Diverticulitis Prescriptions: New hydrocodone-acetaminophen 5-325 mg tablet 1 tab PO Q6H PRN (Reason: pain) 3 Days Qty: 10 RF: 0 amoxicillin-pot clavulanate 875-125 mg tablet 1 tab PO BID Qty: 20 RF: 0 No Action polyethylene glycol 3350 17 gram powder in packet 17 g PO DAILY PRN (Reason: STOOL SOFTENER) RF: 0 amlodipine 5 mg tablet 5 mg PO DAILY RF: 0 diclofenac sodium 1 % gel 4 g topical DAILY PRN (Reason: joint pain) Qty: 100 RF: 2 carbidopa-levodopa 25-100 mg tablet 1 tab PO .QID Qty: 120 RF: 6 Eliquis 5 MG tablet 5 mg PO BID RF: 0 cholecalciferol (vitamin D3) 25 mcg (1,000 unit) tablet 1,000 unit PO DAILY PRN (Reason: Supplement) RF: 0 acetaminophen 500 mg Tablet 1,000 mg PO Q6H PRN PRN (Reason: Pain Score 1-10) Qty: 0 RF: 0 alprazolam 0.5 mg Tablet 0.5 mg PO 4X/DAY 7 Days Qty: 28 RF: 0 duloxetine [Cymbalta] 60 mg capsule,delayed release(DR/EC) 60 mg PO DAILY RF: 0 doxepin 10 mg capsule 10 mg PO QHS RF: 0 oxycodone-acetaminophen 5-325 mg tablet 1 tab PO Q6H PRN (Reason: pain) 7 Days Qty: 10 RF: 0 Primary Care Provider: Roberto Mullen Chi Referrals: Roberto Mullen Chi, MD [Primary Care Provider] - Activity Restrictions/Additional Instructions: You have been diagnosed with acute diverticulitis. You need to take the entire course of Augmentin. Take your [place] as needed. Please return here for any worsening symptoms. It does show that you are slightly constipated, you need to start taking a stool softener Print Language: Afghan Disposition Disposition: Home, Self Care Discharge Date/Time: 03/10/22 11:51
[2022-03-10] MEDS: Morphine 4 MG/ML Syringe IV (09:56)
[2022-03-10] MEDS: Ondansetron 4 MG/2 ML Vial IV (09:56)
[2022-03-10] MEDS: 0.9% Normal Saline 1,000 ML 1000 ML IV (09:57)
[2022-03-10 09:59] LABS: Absolute Lymphocyte Count 2.68 X10^3/uL (0.83-4.51); Absolute Neutrophil Count 6.5 X10^3/uL (2.0-7.7); Basophil# 0.06 X10^3/uL; Basophil% 0.6 % (0-1); Eosinophil# 0.18 X10^3/uL; Eosinophils% 1.7 % (0-5); Hematocrit 41.4 % (40-54); Hemoglobin 14.3 g/dL (13.0-16.5); Lymphocyte # 2.68 X10^3/ul (0.83-4.51); Lymphocyte % 25.9 % (19-41); Mean Corp Hgb Conc 34.5 g/dL (32-36); Mean Corpuscular Hgb 32.6 pg (27.0-32.0); Mean Corpuscular Volume 94.3 fL (80-94); Mean Platelet Vol. 8.2 fl (6.2-12.0); Monocyte% 8.7 % (0-10); NRBC Flagged by Analyzer 0 % (0-5); Neutrophil # 6.47 X10^3/uL (2.7-7.7); Neutrophil % 62.5 % (47-70); Platelet Count 210 K/mm3 (150-450); RBC Distribution Width CV 12.4 % (11.6-14.6); RBC Distribution Width SD 42.8 fl (35.1-43.9); Red Blood Count 4.39 M/mm3 (4.6-6.2); White Blood Count 10.4 K/mm3 (4.4-11.0)
[2022-03-10 10:10] LABS: Anion Gap 3 (5-15); BUN 18 mg/dL (7-18); BUN/Creat Ratio 11.9 RATIO (10-20); Calcium,Total 8.8 mg/dL (8.5-10.1); Chloride 105 mmol/L (98-107); Creatinine, Serum 1.51 mg/dL (0.70-1.30); EST Glomerular Filtration Rate 47 mL/min (>60); Est Glom Filt Rate - Afr Amer 57 mL/min (>60); Estimated Creatinine Clearance 35.21 ml/min; Glucose 110 mg/dL (74-106); Potassium 3.9 mmol/L (3.5-5.1); Sodium Level 139 mmol/L (136-145)
--- NOTE | 2022-03-10 11:29 | ED.RN ---
pt instructed to call for a ride home for discharge d/t morphine 90 minutes ago. Pt states I don't live far away. RN explained that until 4 hours passes after dosing patient is at risk for getting in an accident and can be cited for driving under the influence. Pt states again I don't live far i will be careful. Rn states thats not how this works, you need to call for a ride or you can wait until the 4 hour akira. Pt states I can't wait that long because i have to watch my golf tournament at 1300. RN replied to patient then you can stay in the room until the 4 hour akira which is 1400.
[2022-03-10] MEDS: Amox/Clavulanate 875 MG Tablet PO (11:36)
== END 2022-03-10 11:51 | disposition home or self-care (01) ==
PROVIDERS: Nurse Practitioner; Emergency Provider Emergency Medicine; PCP Family Medicine Geriatric Medicine; Visit Provider Emergency Medicine
DX: K57.32 Diverticulitis of large intestine without perforation or abscess without bleeding (principal); G20 Parkinson's disease; I10 Essential (primary) hypertension; F17.210 Nicotine dependence, cigarettes, uncomplicated; N28.9 Disorder of kidney and ureter, unspecified; Z86.711 Personal history of pulmonary embolism; K21.9 Gastro-esophageal reflux disease without esophagitis
CPT/HCPCS: 74177; 80048; 85025; 96361; 96374; 96375; 99284; J7030; Q9967; A4216; J2405

== ENCOUNTER 2022-03-26 14:18 | Outpatient (CLI) | payer MEDICARE, OTHER, SELFPAY ==
[2022-03-26 14:57] LABS: PSA,Total - Annual Screen 8.58 ng/mL (0.00-4.00)
== END 2022-03-26 23:59 | disposition home or self-care (01) ==
LOC: POLAB3 14:19
PROVIDERS: PCP Family Medicine Geriatric Medicine; Visit Provider Family Medicine Geriatric Medicine
DX: N40.0 Benign prostatic hyperplasia without lower urinary tract symptoms (principal); Z12.5 Encounter for screening for malignant neoplasm of prostate
CPT/HCPCS: 36415; 84153; G0103

== ENCOUNTER → 2022-04-09 | Outpatient (CLI) | payer MEDICARE, OTHER, SELFPAY ==
--- NOTE | 2022-04-09 14:24 | CT_ITS ---
STUDY: CT ABDOMEN AND PELVIS WITH CONTRAST REASON FOR EXAM: Male, 81 years old. DIVERTICULITIS RADIATION DOSAGE (If Supplied By Facility): CTDIvol = ( 15.01 ) mGy, DLP = ( 856.87 ) mGycm TECHNIQUE: Transaxial images were obtained from the dome of the diaphragm to the symphysis pubis with oral contrast. Oral and IV Gastrografin and 100mL Isovue-300 was administered. Sagittal and coronal images were reconstructed. Individualized dose optimization techniques were used for this CT. COMPARISON: 03/10/2022 FINDINGS: The visualized lung bases are unremarkable. The visualized portions of the heart are within normal limits. Normal liver. Normal gallbladder and extrahepatic biliary system. Normal spleen. Normal pancreas. Normal bilateral adrenal glands. 3 cm cyst in the midsection of right kidney. Normal left kidney. Normal visualized stomach. Normal small intestine. There are multiple colonic diverticula consistent with diverticulosis. There is non-visualization of the appendix. There is diffuse atherosclerotic calcification of the abdominal aorta, without a demonstrated aneurysm. Normal inferior vena cava. Normal retroperitoneum. Normal urinary bladder. Normal abdominal wall. Normal osseous structures. CT/Abdomen/Pelvis WITH Contrast IMPRESSION: Sigmoid diverticulosis without diverticulitis. Electronically Signed: Sd Adorno MD at 17:10 EDT ,
[2022-04-09 17:08] LABS: Absolute Neutrophil Count 5.8 X10^3/uL (2.0-7.7); Basophil# 0.08 X10^3/uL; Basophil% 0.8 % (0-1); Eosinophil# 0.17 X10^3/uL; Eosinophils% 1.8 % (0-5); Hematocrit 45.2 % (40-54); Hemoglobin 15.3 g/dL (13.0-16.5); Lymphocyte % 26.5 % (19-41); Mean Corp Hgb Conc 33.8 g/dL (32-36); Mean Corpuscular Hgb 32.1 pg (27.0-32.0); Mean Corpuscular Volume 94.8 fL (80-94); Monocyte# 0.83 X10^3/uL; Monocyte% 8.8 % (0-10); NRBC Flagged by Analyzer 0 % (0-5); Neutrophil % 61.6 % (47-70); Platelet Count 273 K/mm3 (150-450); RBC Distribution Width CV 12.6 % (11.6-14.6); RBC Distribution Width SD 43.6 fl (35.1-43.9); Red Blood Count 4.77 M/mm3 (4.6-6.2); White Blood Count 9.4 K/mm3 (4.4-11.0)
[2022-04-09 17:41] LABS: Anion Gap 7 (5-15); BUN 17 mg/dL (7-18); BUN/Creat Ratio 11.7 RATIO (10-20); Calcium,Total 9.5 mg/dL (8.5-10.1); Chloride 105 mmol/L (98-107); Creatinine, Serum 1.45 mg/dL (0.70-1.30); EST Glomerular Filtration Rate 50 mL/min (>60); Est Glom Filt Rate - Afr Amer 60 mL/min (>60); Glucose 94 mg/dL (74-106); Sodium Level 137 mmol/L (136-145)
== END | disposition home or self-care (01) ==
PROVIDERS: PCP Family Medicine Geriatric Medicine; Referring Provider Family Medicine Geriatric Medicine; Visit Provider Family Medicine Geriatric Medicine
DX: K57.32 Diverticulitis of large intestine without perforation or abscess without bleeding (principal); R53.83 Other fatigue; N39.0 Urinary tract infection, site not specified
CPT/HCPCS: 36415; 74177; 80048; 85025; 87086; 87088; Q9967

== ENCOUNTER → 2022-06-20 | Outpatient (CLI) | payer MEDICARE, OTHER, SELFPAY ==
[2022-06-20 11:59] LABS: Absolute Lymphocyte Count 3.32 X10^3/uL (0.83-4.51); Absolute Neutrophil Count 4.6 X10^3/uL (2.0-7.7); Basophil% 1.1 % (0-1); Eosinophil# 0.24 X10^3/uL; Eosinophils% 2.7 % (0-5); Hematocrit 43.5 % (40-54); Hemoglobin 14.4 g/dL (13.0-16.5); Lymphocyte # 3.32 X10^3/ul (0.83-4.51); Lymphocyte % 36.9 % (19-41); Mean Corp Hgb Conc 33.1 g/dL (32-36); Mean Corpuscular Hgb 31.9 pg (27.0-32.0); Mean Corpuscular Volume 96.2 fL (80-94); Monocyte% 7.8 % (0-10); NRBC Flagged by Analyzer 0 % (0-5); Neutrophil # 4.61 X10^3/uL (2.7-7.7); Neutrophil % 51.2 % (47-70); Platelet Count 281 K/mm3 (150-450); RBC Distribution Width CV 13.5 % (11.6-14.6); RBC Distribution Width SD 47.6 fl (35.1-43.9); Red Blood Count 4.52 M/mm3 (4.6-6.2)
[2022-06-20 12:28] LABS: ALB/GLOB Ratio 0.8 RATIO (0.9-2.4); AST(SGOT) 18 U/L (15-37); Alanine Aminotransfer ALT/SGPT 20 U/L (16-61); Albumin, Serum 3.3 g/dL (3.2-5.0); Alkaline Phosphatase 78 U/L (45-117); Anion Gap 4 (5-15); BUN 20 mg/dL (7-18); BUN/Creat Ratio 13.7 RATIO (10-20); Calcium,Total 8.9 mg/dL (8.5-10.1); Chloride 105 mmol/L (98-107); Creatinine, Serum 1.46 mg/dL (0.70-1.30); EST Glomerular Filtration Rate 49 mL/min (>60); Est Glom Filt Rate - Afr Amer 60 mL/min (>60); Glucose 144 mg/dL (74-106); Potassium 3.9 mmol/L (3.5-5.1); Protein, Total 7.3 g/dL (6.4-8.2); Sodium Level 141 mmol/L (136-145); Thyroid Stim Hormone (TSH) 0.67 uIU/mL (0.358-3.74); Uric Acid 6.9 mg/dL (3.5-7.2)
== END | disposition home or self-care (01) ==
LOC: POLAB3 08:52
PROVIDERS: PCP Family Medicine Geriatric Medicine; Visit Provider Family Medicine Geriatric Medicine
DX: I10 Essential (primary) hypertension (principal); E55.9 Vitamin D deficiency, unspecified; M10.9 Gout, unspecified; F52.8 Other sexual dysfunction not due to a substance or known physiological condition
CPT/HCPCS: 36415; 80053; 82306; 84403; 84443; 84550; 85025

== ENCOUNTER → 2022-06-25 | Outpatient (CLI) | payer MEDICARE, OTHER, SELFPAY ==
--- NOTE | 2022-06-25 10:08 | RAD_ITS ---
STUDY: X-RAY - RIGHT SHOULDER REASON FOR EXAM: Male, 81 years old. Shoulder pain. TECHNIQUE: 5 view(s) of the shoulder. COMPARISON: None. FINDINGS: Osteopenia. Large subacromial spur. Moderate arthrosis of the glenohumeral joint. Mild arthrosis of the AC joint. Normal humeral head and visualized proximal humerus. The soft tissue structures are unremarkable. Normal visualized pulmonary apex. RAD/Shoulder min 2 Views IMPRESSION: Osteopenia with osteoarthritic changes of the glenohumeral and acromioclavicular joints. Large subacromial spur. No acute abnormality, evidence of erosive changes or fusion. Electronically Signed: Kristopher De La Rosa, at 10:41 EDT ,
== END | disposition home or self-care (01) ==
LOC: RAD 10:07
PROVIDERS: PCP Family Medicine Geriatric Medicine; Referring Provider Family Medicine Geriatric Medicine; Visit Provider Family Medicine Geriatric Medicine
DX: M25.519 Pain in unspecified shoulder (principal)
CPT/HCPCS: 73030

== ENCOUNTER → 2022-09-26 | Outpatient (CLI) | payer MEDICARE, OTHER, SELFPAY ==
--- NOTE | 2022-09-26 15:55 | RAD_ITS ---
INDICATION: LOW BACK PAIN EXAMINATION/TECHNIQUE: X-RAY - XR Spine Lumbar Min 4 Views COMPARISON: 09/18/2020 FINDINGS: VERTEBRAE: Preserved vertebral body height. No fracture. No spondylolisthesis. Preservation of the normal lumbar lordosis. Facet arthropathy increases from superior to inferior. DISCS: Mildly increased degenerative disc and endplate disease with anterior bridging osteophytes compared to 09/18/2020 INCLUDED ABDOMEN: Included bowel gas pattern is non-obstructive. Calcific aorta. RAD/L/S Spine Min 4 Views IMPRESSION: Mild increase in degenerative disc and endplate disease compared to 09/18/2020. Electronically Signed: Myles Oakes MD at 23:00 EST ,
== END | disposition home or self-care (01) ==
LOC: RAD 15:51
PROVIDERS: PCP Family Medicine Geriatric Medicine; Referring Provider Family Medicine Geriatric Medicine; Visit Provider Family Medicine Geriatric Medicine
DX: M47.816 Spondylosis without myelopathy or radiculopathy, lumbar region (principal); I70.0 Atherosclerosis of aorta
CPT/HCPCS: 72110

== ENCOUNTER 2022-09-27 10:00 | Outpatient (RCR) | payer MEDICARE, OTHER, SELFPAY ==
--- NOTE | 2022-08-12 11:39 | HP.PTEVAL ---
Patient's Visit Information ANDREW BLANC is a 81 year old M referred to Physical Therapy by Dr. Vernon Murrell MD with a diagnosis of PD. Date of Evaluation: 08/12/22 Physical Therapist: GERARDO Cam - Visit Plan Frequency: 2x /Week Duration: 6 Weeks Plan: 2X/ week for 8 weeks for dual tasking, postural exercises, gait mechanics, balance, with HEP. HEP: seated opp arm and leg - Subjective He was Dx a year ago in May with PD. Pt reports that he is struggling with long walks, stiffness (can't get his shoes on). He has had 5-6 falls and just fell, only dizzy one time. He was getting freezing meds until he got on meds. He sleeps on his back and does not roll side to side so he does not know if he can do them. Stairs: he has not tried today. He lives one story home with stairs to the basement but he does not do them. He lives alone. If he falls he usually needs help. - Pain LB Pain Intensity (Out of 10): 1 - Objective Gait: walks with wider DAVID and bow knees with some veering. He does not picker and sorter load and unload his feet with gait and shuffles the longer he is walking. Sit to stand: able to get up without use of his arms. heel and toe raises: He is able to raise them but limited ROM with weakness present and some LOB. Posture: slouched posture. LE MMT: R hip flex 16.4# and L hip flex 19.1#. R knee ext 21.6# and L knee ext 21,4#. R knee flex 11# and L knee flex 13#. FGA: 13. 4 square: 10:55. TU.6. Standing opp arm and leg: could not due (did same side and unsteady). Sitting opp arm and leg.. able to do 4 in a row after instruction and tactile demonstration and then revert back to same side. - Balance/Special Test Scores Functional Gait Assessment Score: 13 % Disability: 56.6700 Lower Extremity Functional Score: 40 - Goals Goal 1:: I HEP Goal Time Frame: 6-8 Weeks Goal 2:: Increase FGA score by 5 points to decrease fall risk (score at eval: 13) Goal Time Frame: 6-8 Weeks Goal 3:: Decrease TUG time (at time of the eval: 13.6) Goal Time Frame: 6-8 Weeks Goal 4:: Be able to complete X 20 in a row with standing opp arm and leg with good balance. Goal Time Frame: 6-8 Weeks - Rehabilitation Potential Rehabilitation Potential: Good - Anticipated Interventions Patient/Client Instruction: Educate patient on: Condition, Plan of Care For the Purpose of:: To improve muscle performance and motor function, To improve ability to perform ADL's, To increase tolerance to activity/condition/position, To improve performance and independence with ADL's, To decrease level of supervision to perform tasks, To improve ability of physical actions for home/community/work/leisure, To improve gait and locomotor functions, To improve health of tissue, To decrease soft tissue restriction, To increase flexibility/ROM, To improve endurance, To improve balance, To improve safety with gait Therapeutic Exercise to Include: Strength training, Endurance training, Balance training, Coordination, Body mechanics, Postural training, Flexibilty training, Gait and locomotor training, Neuromotor development, Passive ROM, Active ROM For the Purpose of:: To decrease pain, To decrease swelling/inflammation, To increase ROM, To improve nutrient delivery to tissue, To increase oxygenation perfusion, To improve muscle performance and motor function, To improve ability to perform ADL's, To increase tolerance to activity/condition/position, To improve performance and independence with ADL's, To decrease level of supervision to perform tasks, To improve ability of physical actions for home/community/work/leisure, To improve gait and locomotor functions, To improve health of tissue, To decrease soft tissue restriction, To increase flexibility/ROM, To improve endurance, To improve balance, To improve safety with gait Functional Training to Include: Gait training For the Purpose of:: To improve gait and locomotor functions Thank you for the opportunity to evaluate your patient. For Medicare and Medicare HMO plans, please review the plan of care and approve it. It will need to be FAXED BACK to us at [phone] for Medicare purposes. For Medicare only, by signing this I certify the plan of care. Please let me know if there are questions or concerns regarding this plan of care. Physician Signature: Date:
--- NOTE | 2022-09-27 10:30 | HP.PTDCSUM ---
It has been my pleasure to treat ANDREW BLANC referred by Dr. Vernon Murrell MD, with the diagnosis of PD for a total of 9 visit(s). Discharge Date: 09/27/22 Please see the following information for a summary of their discharge status. Subjective: He got a shot in his R hip and buttocks yesterday. He still has pain in his R sided buttock and back. Dr did take an x-ray. Pt is enjoying therapy. He feels that it is helping. His legs are a little bit stronger. He is not walking as much becasue of the weather. He is doing exercises at home. He feels that his balance is better. He has not even come close to falling. LB Pain Intensity (Out of 10): 3 R Hip Pain Intensity (Out of 10): 3 % Improvement: 75 Objective/Function: TUG 10.12. FGA 21. Standing opp arm and leg: pt has to think about it but he is able to do it. Goal 1:: I HEP Goal Progress: Goal Met Goal 2:: Increase FGA score by 5 points to decrease fall risk (score at eval: 13) Goal Progress: Goal Met Goal 3:: Decrease TUG time (at time of the eval: 13.6) Goal Progress: Goal Met Goal 4:: Be able to complete X 20 in a row with standing opp arm and leg with good balance. Goal Progress: Progressing Plan: Re-assess with Ele Wheeler MSPT next visit. Pt may be a good candidate for Parkinson's class in Health and Wellness at discharge. Discharge Comments: DC PT to PD class and HEP If there are questions or concerns regarding this patient's physical therapy, please feel free to call me at [phone]. Thank you for the referral of this patient. Sincerely, Ele Wheeler, MPT Balance/Gait/Functional tests - Balance/Special Test Scores Functional Gait Assessment Score: 21 % Disability: 30.0000 Lower Extremity Functional Score: 29 TUG Test Time Seconds: 8.58
== END 2022-09-27 12:55 | disposition home or self-care (01) ==
LOC: PT 10:00
PROVIDERS: PCP Family Medicine Geriatric Medicine; Visit Provider Psychiatry & Neurology Neurology
DX: G20 Parkinson's disease (principal)
CPT/HCPCS: 97110; 97161; 97530

== ENCOUNTER → 2022-10-31 | Outpatient (CLI) | payer MEDICARE, OTHER, SELFPAY ==
[2022-10-31 18:10] LABS: PSA,Total- Diagnostic 5.97 ng/mL (0.0-4.0)
== END | disposition home or self-care (01) ==
LOC: LAB 16:40
PROVIDERS: PCP Family Medicine Geriatric Medicine; Visit Provider Registered Nurse
DX: R97.20 Elevated prostate specific antigen [PSA] (principal)
CPT/HCPCS: 36415; 84153

== ENCOUNTER → 2022-12-18 | Outpatient (CLI) | payer MEDICARE, OTHER, SELFPAY ==
[2022-12-18 14:54] LABS: Absolute Lymphocyte Count 2.21 X10^3/uL (0.83-4.51); Absolute Neutrophil Count 6.3 X10^3/uL (2.0-7.7); Basophil# 0.07 X10^3/uL; Basophil% 0.7 % (0-1); Eosinophil# 0.13 X10^3/uL; Eosinophils% 1.4 % (0-5); Hematocrit 45.5 % (40-54); Lymphocyte # 2.21 X10^3/ul (0.83-4.51); Lymphocyte % 23.3 % (19-41); Mean Corpuscular Hgb 31.8 pg (27.0-32.0); Mean Corpuscular Volume 96.4 fL (80-94); Mean Platelet Vol. 8.6 fl (6.2-12.0); Monocyte# 0.75 X10^3/uL; Monocyte% 7.9 % (0-10); NRBC Flagged by Analyzer 0 % (0-5); Neutrophil # 6.28 X10^3/uL (2.7-7.7); Neutrophil % 66.2 % (47-70); Platelet Count 283 K/mm3 (150-450); RBC Distribution Width CV 13.3 % (11.6-14.6); RBC Distribution Width SD 47.3 fl (35.1-43.9); Red Blood Count 4.72 M/mm3 (4.6-6.2); White Blood Count 9.5 K/mm3 (4.4-11.0)
[2022-12-18 15:13] LABS: Vitamin D,25 Hydroxy 27.5 ng/mL
[2022-12-18 15:16] LABS: ALB/GLOB Ratio 0.9 RATIO (0.9-2.4); AST(SGOT) 16 U/L (15-37); Alanine Aminotransfer ALT/SGPT 12 U/L (16-61); Albumin, Serum 3.6 g/dL (3.2-5.0); Alkaline Phosphatase 74 U/L (45-117); Anion Gap 7 (5-15); BUN 19 mg/dL (7-18); BUN/Creat Ratio 11.7 RATIO (10-20); Calcium,Total 9.3 mg/dL (8.5-10.1); Chloride 106 mmol/L (98-107); Creatinine, Serum 1.62 mg/dL (0.70-1.30); EST Glomerular Filtration Rate 44 mL/min (>60); Est Glom Filt Rate - Afr Amer 53 mL/min (>60); Globulin 3.9 g/dL (2.2-4.2); Glucose 107 mg/dL (74-106); Potassium 4.1 mmol/L (3.5-5.1); Protein, Total 7.5 g/dL (6.4-8.2); Sodium Level 141 mmol/L (136-145); Thyroid Stim Hormone (TSH) 1.25 uIU/mL (0.358-3.74)
== END | disposition home or self-care (01) ==
LOC: POLAB3 13:22
PROVIDERS: PCP Family Medicine Geriatric Medicine; Visit Provider Family Medicine Geriatric Medicine
DX: E55.9 Vitamin D deficiency, unspecified (principal); I10 Essential (primary) hypertension; F52.8 Other sexual dysfunction not due to a substance or known physiological condition
CPT/HCPCS: 36415; 80053; 82306; 84403; 84443; 85025

== ENCOUNTER 2023-02-24 20:08 | Emergency (ER) | payer MEDICARE, OTHER, SELFPAY ==
[2023-02-24 20:09] VITALS: BP 104/61; PULSE 100; RESP 16; TEMP 35.9; O2SAT 99; BMI 25.2
--- NOTE | 2023-02-24 21:05 | RAD_ITS ---
EXAM: XR LUMBOSACRAL SPINE, 2 OR 3 VIEWS CLINICAL INDICATION: Injury/Pain TECHNIQUE: Frontal and lateral views of the lumbar spine and sacrum. COMPARISON: No relevant prior studies available. FINDINGS: VERTEBRAE: Diffuse osteopenia. No spondylolisthesis. Preservation of the normal lumbar lordosis. Lower level lumbar spine moderate facet arthropathy. No acute or healing fracture or malalignment. No other unusual lytic or sclerotic lesions of bone. DISC SPACES: Degenerative changes of the pelvis. GASTROINTESTINAL TRACT: Unremarkable as visualized. Included bowel gas pattern is non-obstructive. Normal bowel gas pattern. OTHER FINDINGS: Ankylosing spondylitis. Prominent costochondral calcifications. RAD/Lumbar Spine 2 or 3 Views IMPRESSION: Findings of ankylosing spondylitis with no acute or healing fracture or malalignment. Electronically Signed: Elie Figueroa MD at 21:42 EDT ,
[2023-02-24 21:21] VITALS: BP 169/72; BP 175/77; BP 87/45; PULSE 83; PULSE 84; PULSE 88
--- NOTE | 2023-02-24 22:11 | ED.VIS.BACK ---
HPI History of Present Illness Chief Complaint: Back Informant: patient Onset/Context/Timing Onset: Days (4) Context: Sudden Onset Injury: fall Timing: Continuous Quality: Sharp Location: Lumbar Worsened by: improves with Movement Relieved by: Nothing Associated Symptoms Associated Symptoms: Dysuria (Chronic); Negative for Numbness, Tingling, Radiation to Right Leg, Radiation to Left Leg, Fever, Abdominal Pain, Unable to Ambulate, Unable to Transfer, Urinary Retention, Urinary Incontinence, Constipation or Fecal Incontinence Narrative Narrative: Improved with back pain that began after a fall 4 days ago. Patient states it is gradually getting worse. Patient describes it as constant. Patient states it is over his lower lumbar area. Patient states it is worse with movement. Patient denies any radiation of the pain down his legs. Patient denies any paresthesias or weakness. Patient denies any bowel or bladder changes. Patient denies any saddle anesthesia. Patient states he has a history of Parkinson's disease. [facility] Medical History Arthritis Cancer Cataracts, bilateral Gastric reflux GERD (gastroesophageal reflux disease) History of diverticulitis History of stress test Hx of blood clots Hypertension Kidney disease Parkinson disease Prostate disorder Pulmonary embolism Smoker Syncope Wears dentures Wears glasses Home Medications apixaban 5 mg tablet (Eliquis) 5 mg PO BID Blood thinner 12/08/16 [History Last Taken 02/17/22] acetaminophen 500 mg tablet 1,000 mg PO Q6H PRN PRN Pain Score 1-10 #0 tabs 05/18/21 [Rx Last Taken Unknown] alprazolam 0.5 mg tablet 0.5 mg PO 4X/DAY 7 days #28 tabs 05/18/21 [Rx Last Taken 02/20/22] diclofenac sodium 1 % topical gel 4 g topical DAILY PRN joint pain #100 grams 10/22/21 [Rx Last Taken Unknown] doxepin 10 mg capsule 10 mg PO QHS 02/18/22 [History Last Taken Unknown] carbidopa 25 mg-levodopa 100 mg tablet 2 tab PO TID #180 tabs 01/16/23 [Rx Last Taken Unknown] cholecalciferol (vitamin D3) 1,250 mcg (50,000 unit) capsule 1,250 mcg PO QWEEK #4 caps 01/16/23 [Rx Last Taken Unknown] hydrocodone-acetaminophen 5-325mg 5mg-325mg 1 tab PO Q6H PRN PRN Pain 3 days #10 TABLETS 02/24/23 [Rx Last Taken Unknown] Allergy/AdvReac Type Severity Reaction Status Date / Time prednisone Allergy Other Verified 02/24/23 20:19 Family History Father CVA (cerebral vascular accident) Surgical History H/O rotator cuff surgery History of adenoidectomy History of appendectomy History of tonsillectomy Hx of cystoscopy Hx of facial fracture repair Social History household members: none Smoking Status: Current every day smoker tobacco type: cigarettes Tobacco: How many years used: 25 Electronic Cigarette Use: not used how long ago did patient quit smoking: quit in 1988 second hand exposure: No alcohol intake: former details: 1988 substance use type: does not use ROS ROS ED Constitutional Constitutional ED: Denies chills or fever(s) Eyes Eyes: Denies blurry vision or change in vision ENT ENT ED: Denies rhinorrhea or sore throat Cardiovascular Cardiovascular: Denies chest pain or palpitations Respiratory/Chest Respiratory/Chest: Denies cough or dyspnea Gastrointestinal Gastrointestinal: Denies nausea or vomiting Genitourinary Genitourinary ED: Reports dysuria; Denies hematuria Musculoskeletal Musculoskeletal: Reports back pain; Denies neck pain Integumentary Denies abscess or rash Neurologic Neurologic: Denies headache(s) or weakness Allergic/Immunologic Allergic/Immunologic ED: Denies mouth swelling or urticaria EXAM Physical Exam Const Vital Signs: 02/24/23 20:09 02/24/23 21:21 Temperature 96.6 F L Temperature Source Temporal Pulse Rate 100 Pulse Rate [Lying] 84 Pulse Rate [Sitting (for 1 minute prior to obtaining)] 83 Pulse Rate [Standing (for 1 minute prior to obtaining)] 88 Respiratory Rate 16 Blood Pressure 104/61 Blood Pressure [Lying] 175/77 H Blood Pressure [Sitting (for 1 minute prior to obtaining)] 169/72 H Blood Pressure [Standing (for 1 minute prior to obtaining)] 87/45 L Blood Pressure Mean 75 Blood Pressure Mean [Lying] 109 Blood Pressure Mean [Sitting (for 1 minute prior to obtaining)] 104 Blood Pressure Mean [Standing (for 1 minute prior to obtaining)] 59 Pulse Ox 99 Oxygen Delivery Method Room Air Positive well nourished and well developed General Appearance ED: well developed and NAD HEENT Reports moist mucous membranes Neck supple and no JVD GI soft to palpation and non-tender Back/Spine Back/Spine Narrative: There is tenderness over the lower lumbar spine and left lumbar paraspinal muscles. There is no bony crepitance or step-off. There is no edema or ecchymosis. Range of motion was slightly limited in all motions of the lumbar spine secondary to pain. Straight leg raises were negative. Strength is 5/5 bilaterally in the lower extremities. There are no sensory deficits noted. Deep tendon reflexes are 2/4 bilaterally in the lower extremities. Lumbar Spine / Lower Back: ROM limited and straight leg raise negative bilaterally Neuro oriented x3 and no sensory deficits noted Sensorium / Orientation: alert Motor Exam: strength 5/5 throughout Deep Tendon Reflexes: Rt Patellar (L4): 2+, Lt Patellar (L4): 2+, Rt Ankle (S1): 2+ and Lt Ankle (S1): 2+ Deep Tendon Reflexes Back: Rt Patellar (L4): 2+, Lt Patellar (L4): 2+, Rt Ankle (S1): 2+ and Lt Ankle (S1): 2+ Psych mental status grossly normal MDM MDM MDM Narrative Medical decision making narrative: Differential diagnosis includes lumbar compression fracture and lumbosacral strain. X-rays of the lumbar spine will be obtained to assess for compression fracture. Radiography Diagnostic Testing: Clinical Impression(s) from Imaging Studies Lumbar Spine X-Ray 02/24/23 21:05 IMPRESSION: Findings of ankylosing spondylitis with no acute or healing fracture or malalignment. Electronically Signed: Elie Figueroa MD at 21:42 EDT , X-rays of the lumbar spine were obtained. There are 2 views. On my independent interpretation, there are degenerative changes noted. There is no acute fracture or spondylolisthesis. Radiologist also interpreted the x-rays and noted findings of ankylosing spondylitis but also did not appreciate any fracture. Treatment and Re-Evaluation Narrative: Orthostatic vital signs were obtained. Patient's blood pressure dropped with standing however his heart rate did not increase. Because of this, patient was given IV fluids. I feel the patient is still safe to be discharged home. Patient was instructed to drink plenty of fluids. Patient was instructed to take Tylenol as needed for pain. Patient was instructed to follow-up with his primary care physician in 5 to 7 days. Patient understood and was agreeable with the plan. All questions were answered. Discharge Plan Triage Chief Complaint: Back Other Complaint: Fall ED Provider: Edenilson Ferro Dx/Rx/DC Orders Clinical Impression: Lumbar contusion, Parkinson's disease, Orthostatic hypotension Instructions: ED Back Sprain/Strain Prescriptions: New hydrocodone-acetaminophen [hydrocodone-acetaminophen] 5-325 mg tablet 1 tab PO Q6H PRN PRN (Reason: Pain) 3 Days Qty: 10 0RF No Action diclofenac sodium 1 % gel 4 g topical DAILY PRN (Reason: joint pain) Qty: 100 2RF carbidopa-levodopa 25-100 mg tablet 2 tab PO TID Qty: 180 6RF cholecalciferol (vitamin D3) 1,250 mcg (50,000 unit) capsule 1,250 mcg PO QWEEK Qty: 4 6RF Eliquis 5 MG tablet 5 mg PO BID Rx Instructions: will stop 2 days prior acetaminophen 500 mg Tablet 1,000 mg PO Q6H PRN PRN (Reason: Pain Score 1-10) Qty: 0 0RF alprazolam 0.5 mg Tablet 0.5 mg PO 4X/DAY 7 Days Qty: 28 0RF doxepin 10 mg capsule 10 mg PO QHS Label Comments: take 1 capsule by mouth once daily Primary Care Provider: Roberto Mullen Chi Referrals: Roberto Mullen Chi, MD [Primary Care Provider] - 5-7 Days Disposition Disposition: Home, Self Care
[2023-02-24] MEDS: 0.9% Normal Saline 1,000 ML 1000 ML IV (23:24)
== END 2023-02-25 00:14 | disposition home or self-care (01) ==
PROVIDERS: Emergency Provider Emergency Medicine; PCP Family Medicine Geriatric Medicine; Visit Provider Emergency Medicine
DX: S30.0XXA Contusion of lower back and pelvis, initial encounter (principal); G20 Parkinson's disease; I95.1 Orthostatic hypotension; F17.210 Nicotine dependence, cigarettes, uncomplicated; W19.XXXA Unspecified fall, initial encounter; I10 Essential (primary) hypertension; Z79.01 Long term (current) use of anticoagulants; Z86.711 Personal history of pulmonary embolism; M19.90 Unspecified osteoarthritis, unspecified site; Z79.899 Other long term (current) drug therapy; Z90.49 Acquired absence of other specified parts of digestive tract
CPT/HCPCS: 72100; 99283; J7030; A4216

== ENCOUNTER → 2023-03-27 | Outpatient (CLI) | payer MEDICARE, OTHER, SELFPAY ==
[2023-03-27 17:37] LABS: Hematocrit 49.8 % (40-54); Hemoglobin 16.3 g/dL (13.0-16.5); Mean Corp Hgb Conc 32.7 g/dL (32-36); Mean Corpuscular Hgb 31.3 pg (27.0-32.0); Mean Corpuscular Volume 95.8 fL (80-94); Mean Platelet Vol. 8.6 fl (6.2-12.0); Platelet Count 317 K/mm3 (150-450); RBC Distribution Width CV 13.2 % (11.6-14.6); RBC Distribution Width SD 46.5 fl (35.1-43.9); White Blood Count 10.2 K/mm3 (4.4-11.0)
[2023-03-27 18:37] LABS: ALB/GLOB Ratio 0.9 RATIO (0.9-2.4); AST(SGOT) 21 U/L (15-37); Alanine Aminotransfer ALT/SGPT 12 U/L (16-61); Albumin, Serum 3.9 g/dL (3.2-5.0); Alkaline Phosphatase 100 U/L (45-117); Anion Gap 6 (5-15); BUN 18 mg/dL (7-18); BUN/Creat Ratio 11.7 RATIO (10-20); Calcium,Total 9.6 mg/dL (8.5-10.1); Chloride 108 mmol/L (98-107); Creatinine, Serum 1.54 mg/dL (0.70-1.30); EST Glomerular Filtration Rate 46 mL/min (>60); Est Glom Filt Rate - Afr Amer 56 mL/min (>60); Globulin 4.3 g/dL (2.2-4.2); Glucose 107 mg/dL (74-106); Magnesium 2.5 mg/dL (1.6-2.6); Potassium 4.1 mmol/L (3.5-5.1); Protein, Total 8.2 g/dL (6.4-8.2); Sodium Level 140 mmol/L (136-145)
== END | disposition home or self-care (01) ==
LOC: LAB 17:14
PROVIDERS: PCP Family Medicine Geriatric Medicine; Visit Provider Psychiatry & Neurology Neurology
DX: I95.1 Orthostatic hypotension (principal)
CPT/HCPCS: 36415; 80053; 83735; 85027

== ENCOUNTER 2023-04-06 09:22 | Emergency (ER) | payer MEDICARE, OTHER, SELFPAY ==
[2023-04-06 09:23] VITALS: BP 158/73; PULSE 72; RESP 16; TEMP 35.9; O2SAT 97; BMI 23.2
--- NOTE | 2023-04-06 09:40 | US_ITS ---
STUDY: ABDOMINAL ULTRASOUND - RIGHT UPPER QUADRANT REASON FOR VISIT: Male, 82 years old PAIN TECHNIQUE: Ultrasound evaluation of the right upper quadrant was performed with real-time and static correa-scale imaging. TECHNICAL QUALITY: Limited. Examination limited by bowel gas. COMPARISON: CT of abdomen and pelvis dated April 06, 2023 FINDINGS: Liver: The liver measures 13.7 cm. There is increased echogenicity consistent with fatty infiltration. The bile ducts are within normal limits. There is hepatic color flow. The direction of portal flow is hepatopetal. There is no demonstrated mass lesion. Gallbladder: Normal distended gallbladder. The gallbladder wall measures 4.0 mm. There is a negative sonographic Kaminski''s sign. There is no pericholecystic fluid. There are no gallstones. Common Bile Duct (C.B.D.): The common bile duct measures 1.8 mm. Pancreas: Normal size of the head, body and tail of the pancreas. There is normal echogenicity of the pancreas. There is no demonstrated pancreatic mass or cyst. Right Kidney: Normal size of the right kidney. The right kidney measures 10.3 x 4.9 x 3.7 cm. There is thinning of the renal cortex. There is no demonstrated renal mass. A moderate size simple cyst is present midpole of the right kidney measuring 3.8 cm in diameter. There is no right hydronephrosis. US/Gallbladder IMPRESSION: 1. Benign fatty infiltration of the liver. Electronically Signed: Joe De La Garza MD at 11:59 EDT ,
--- NOTE | 2023-04-06 09:41 | EDS_ITS ---
HPI HPI - GI History of Present Illness Chief Complaint: Abd Pain Narrative Narrative: 82-year-old male with epigastric and right upper quadrant pain. He states has been present for about 3 days. He states he has new teeth implants and is hard for him to eat but he has been able to get soft foods and such as ensures, baked potatoes. Patient states that he is not nauseous and able hold on the food. He states he is not had a bowel movement in 3 days and has been taking [employer] brand laxatives but he has not had a bowel movement. He has a history of diverticulitis but states this pain was in the left lower quadrant when he had that. This is more upper his abdomen. Patient states pain is constant. [facility] Medical History Arthritis Cancer Cataracts, bilateral Gastric reflux GERD (gastroesophageal reflux disease) History of diverticulitis History of stress test Hx of blood clots Hypertension Kidney disease Parkinson disease Prostate disorder Pulmonary embolism Smoker Syncope Wears dentures Wears glasses Home Medications apixaban 5 mg tablet (Eliquis) 5 mg PO BID Blood thinner 12/08/16 [History Last Taken 02/17/22] acetaminophen 500 mg tablet 1,000 mg (2 x 500 mg) PO Q6H PRN PRN Pain Score 1-10 #0 tabs 05/18/21 [Rx Last Taken Unknown] alprazolam 0.5 mg tablet 0.5 mg PO 4X/DAY 7 days #28 tabs 05/18/21 [Rx Last Taken 02/20/22] diclofenac sodium 1 % topical gel 4 g topical DAILY PRN joint pain #100 grams 10/22/21 [Rx Last Taken Unknown] doxepin 10 mg capsule 10 mg PO QHS 02/18/22 [History Last Taken Unknown] cholecalciferol (vitamin D3) 1,250 mcg (50,000 unit) capsule 1,250 mcg PO QWEEK #4 caps 01/16/23 [Rx Last Taken Unknown] hydrocodone-acetaminophen 5-325mg 5mg-325mg 1 tab PO Q6H PRN PRN Pain 3 days #10 TABLETS 02/24/23 [Rx Last Taken Unknown] carbidopa 25 mg-levodopa 100 mg tablet 2 tab PO TID #180 tabs 03/27/23 [Rx Last Taken Unknown] fludrocortisone 0.1 mg tablet See Rx Instructions .Route .COMPLEX #20 tabs 03/27/23 [Rx Last Taken Unknown] sertraline 50 mg tablet 50 mg PO DAILY #30 tabs 03/27/23 [Rx Last Taken Unknown] ondansetron 4 mg disintegrating tablet 4 mg PO Q8H PRN PRN Nausea #20 tabs 04/06/23 [Rx Last Taken Unknown] sucralfate 100 mg/mL oral suspension 1 g (10 mL) PO BID PRN epigastric pain #200 mL 04/06/23 [Rx Last Taken Unknown] Allergy/AdvReac Type Severity Reaction Status Date / Time prednisone Allergy Severe Other Verified 04/06/23 09:23 Family History Father CVA (cerebral vascular accident) Surgical History H/O rotator cuff surgery History of adenoidectomy History of appendectomy History of tonsillectomy Hx of cystoscopy Hx of facial fracture repair Social History household members: none Smoking Status: Current every day smoker tobacco type: cigarettes Tobacco: How many years used: 25 Electronic Cigarette Use: not used how long ago did patient quit smoking: quit in 1988 second hand exposure: No alcohol intake: former details: 1988 substance use type: does not use ROS ROS ED Constitutional Constitutional ED: Denies chills, fever(s) or sweats Eyes Eyes: Denies blurry vision or change in vision ENT ENT ED: Denies ear pain or sore throat Cardiovascular Cardiovascular: Denies chest pain, palpitations or racing heartbeat Respiratory/Chest Respiratory/Chest: Denies cough, dyspnea or sputum Gastrointestinal Gastrointestinal: Reports abdominal pain and constipation; Denies diarrhea, nausea or vomiting Genitourinary Genitourinary ED: Denies dysuria, hematuria or urinary frequency Musculoskeletal Musculoskeletal: Denies arthralgias, myalgias or neck pain Integumentary Denies abscess, Abrasions or rash Neurologic Neurologic: Denies headache(s), paresthesias or weakness Psychiatric Psychiatric: Denies anxiety, depression, suicidal ideation or suicidal thoughts Endocrine Endocrinology: Denies polydipsia or polyuria EXAM Physical Exam Const Vital Signs: 04/06/23 09:23 04/06/23 13:04 Temperature 96.6 F L Temperature Source Temporal Pulse Rate 72 78 Respiratory Rate 16 16 Blood Pressure 158/73 H 131/73 H Blood Pressure Mean 101 92 Pulse Ox 97 98 Oxygen Delivery Method Room Air Room Air Positive well nourished General Appearance ED: NAD; Negative for pallor HEENT Reports moist mucous membranes atraumatic Eyes PERRL and EOMs intact bilaterally Resp normal respiratory effort and clear to auscultation bilaterally Cardio regular rate and regular rhythm GI Palpation: tender epigastric, RUQ and Kaminski's sign; Negative for guarding or rigid Neuro CN's II-XII intact bilaterally Sensorium / Orientation: alert Psych mental status grossly normal and thought process normal Skin no wounds General Skin Exam: Negative for jaundice or pallor MDM MDM MDM Narrative Medical decision making narrative: Patient presenting with abdominal pain. He was fairly vague at first and pointed to his whole abdomen and was talking about constipation. After examin ing him know he has epigastric and right upper quadrant pain. He does have a positive Kaminski sign I believe. He is medicated with morphine and Zofran. Differential includes gastritis, pancreatitis, peptic ulcer disease, cholecystitis, choledocholithiasis, cholelithiasis, constipation, dehydration, electrolyte abnormalities, colitis. Diverticulitis was considered however he did not have left lower quadrant pain. CBC to assess white blood cell count, hemoglobin, platelets. BMP to assess renal function, electrolytes. Liver function testing to assess liver enzymes. Lipase to assess for pancreatitis. Urinalysis to assess for UTI. We will obtain a right upper quadrant ultrasound at this time. Gallbladder ultrasound was reviewed by myself and has not yet been interpreted but I do not see any signs of stones nor do I see evidence of inflammation. There appears to be normal size and structure. For this reason I obtained a CT of the abdomen pelvis with IV contrast. CBC shows a leukocytosis of 13.6. Hemoglobin hematocrit are stable. Platelets are normal. Creatinine at baseline at 1.44. LFTs are unremarkable. Electrolytes are normal. Lipase minimally elevated at 85. Urinalysis negative for infection. CT of the abdomen pelvis returned showing only diverticulosis. Patient reevaluated and feeling well although he request the Xanax which he would normally take at home he states he takes these 4 times a day. He states he takes these 4 times a day regularly. Right upper quadrant ultrasound was ultimately negative. Patient feeling improved. I did give him a GI cocktail. On reevaluation at 145 the patient states he is feeling much better. I feel he stable for discharge at this time. Return precautions were discussed. Impression: 1. Abdominal pain Lab Data Labs: Laboratory Results - last 24 hr 04/06/23 04/06/23 09:43 09:47 WBC 13.6 H RBC 4.75 Hgb 15.0 Hct 44.6 MCV 93.9 MCH 31.6 MCHC 33.6 RDW Std Deviation 45.1 H RDW Coeff of Maritza 13.2 Plt Count 332 MPV 8.7 Immature Gran % (Auto) 0.400 Neut % (Auto) 64.2 Lymph % (Auto) 26.7 [place] % (Auto) 7.4 Eos % (Auto) 0.7 Baso % (Auto) 0.6 Absolute Neuts (auto) 8.8 H Absolute Lymphs (auto) 3.64 Nucleated RBC % 0 Sodium 137 Potassium 3.8 Chloride 103 Carbon Dioxide 27.0 Anion Gap 7 BUN 18 Creatinine 1.44 H Estim Creat Clear Calc 36.31 Est GFR (MDRD) Af Amer 61 Est GFR (MDRD) Non-Af 50 L BUN/Creatinine Ratio 12.5 Glucose 105 Calcium 9.6 Total Bilirubin 0.50 Direct Bilirubin 0.16 AST 13 L ALT 18 Alkaline Phosphatase 96 Total Protein 7.8 Albumin 3.5 Globulin 4.3 H Lipase 85 H Urine Color Yellow Urine Clarity Clear Urine pH 7.0 Ur Specific [place] 1.015 Urine Protein 15 H Urine Glucose (UA) Normal Urine Ketones Negative Urine Occult Blood 25 H Urine Nitrite Negative Urine Bilirubin Negative Urine Urobilinogen 4 H Ur Leukocyte Esterase Negative Urine RBC 0-5 SEEN Urine WBC 0 SEEN Ur Squamous Epith Cells 0-5 SEEN Urine Bacteria 0 SEEN Urine Mucus 0 SEEN Radiography Diagnostic Testing: Clinical Impression(s) from Imaging Studies Abdomen/Pelvis CT 04/06/23 11:02 IMPRESSION: 1. Moderate rectosigmoid diverticulosis is present. A few diverticula of the cecum are also present. No inflammatory stranding or focal wall thickening is seen. There are surgical clips in the region of the appendix consistent with a prior appendectomy. Electronically Signed: Joe De La Garza MD at 12:22 EDT , Discharge Plan Triage Chief Complaint: Abd Pain ED Provider: Miguel Ángel Daly Dx/Rx/DC Orders Instructions: ED Abdominal Pain Unkn Cause Male... Prescriptions: New sucralfate 100 mg/mL suspension 1 g PO BID PRN (Reason: epigastric pain) Qty: 200 0RF ondansetron 4 mg tablet,disintegrating 4 mg PO Q8H PRN PRN (Reason: Nausea) Qty: 20 0RF No Action diclofenac sodium 1 % gel 4 g topical DAILY PRN (Reason: joint pain) Qty: 100 2RF cholecalciferol (vitamin D3) 1,250 mcg (50,000 unit) capsule 1,250 mcg PO QWEEK Qty: 4 6RF fludrocortisone 0.1 mg tablet See Rx Instructions .ROUTE .COMPLEX Qty: 20 5RF Rx Instructions: 1 tablet po every Friday, Friday, Friday and (to be taken in the morning). sertraline 50 mg tablet 50 mg PO DAILY Qty: 30 5RF carbidopa-levodopa 25-100 mg tablet 2 tab PO TID Qty: 180 5RF Eliquis 5 MG tablet 5 mg PO BID Rx Instructions: will stop 2 days prior acetaminophen 500 mg Tablet 1,000 mg PO Q6H PRN PRN (Reason: Pain Score 1-10) Qty: 0 0RF alprazolam 0.5 mg Tablet 0.5 mg PO 4X/DAY 7 Days Qty: 28 0RF doxepin 10 mg capsule 10 mg PO QHS Patient Comments: take 1 capsule by mouth once daily hydrocodone-acetaminophen [hydrocodone-acetaminophen] 5-325 mg tablet 1 tab PO Q6H PRN PRN (Reason: Pain) 3 Days Qty: 10 0RF Primary Care Provider: Roberto Mullen Chi Referrals: Roberto Mullen Chi, MD [Primary Care Provider] - Disposition Disposition: Home, Self Care
[2023-04-06] MEDS: Ondansetron 4 MG/2 ML Vial IV (09:52)
[2023-04-06] MEDS: Morphine 4 MG/ML Syringe IV (09:52)
[2023-04-06 09:54] LABS: Bacteria 0 SEEN /hpf (None Seen); Mucous, Urine 0 SEEN /hpf (<or=2+); White Blood Cells 0 SEEN /hpf (0-5)
[2023-04-06 09:57] LABS: Color, Urine Yellow (Yellow); Glucose, Dipstick Normal (Normal); Ketone-Dipstick Negative (Negative); Leukocyte Esterase-Dipstick Negative /ul (Negative); Nitrite-Dipstick Negative (Negative); Occult Blood-Urine 25 /ul (Negative); Protein-Dipstick 15 mg/dl (Negative); Specific Gravity, Urine 1.015 (1.002-1.030); Urine Bilirubin Dipstick Negative (Negative); Urine Clarity Clear (Clear); Urine Urobilinogen 4 mg/dl (Normal)
[2023-04-06 09:58] LABS: Absolute Lymphocyte Count 3.64 X10^3/uL (0.83-4.51); Absolute Neutrophil Count 8.8 X10^3/uL (2.0-7.7); Basophil# 0.08 X10^3/uL; Basophil% 0.6 % (0-1); Eosinophil# 0.09 X10^3/uL; Eosinophils% 0.7 % (0-5); Hematocrit 44.6 % (40-54); Lymphocyte # 3.64 X10^3/ul (0.83-4.51); Lymphocyte % 26.7 % (19-41); Mean Corp Hgb Conc 33.6 g/dL (32-36); Mean Corpuscular Hgb 31.6 pg (27.0-32.0); Mean Corpuscular Volume 93.9 fL (80-94); Mean Platelet Vol. 8.7 fl (6.2-12.0); Monocyte# 1.01 X10^3/uL; Monocyte% 7.4 % (0-10); NRBC Flagged by Analyzer 0 % (0-5); Neutrophil # 8.76 X10^3/uL (2.7-7.7); Neutrophil % 64.2 % (47-70); Platelet Count 332 K/mm3 (150-450); RBC Distribution Width CV 13.2 % (11.6-14.6); RBC Distribution Width SD 45.1 fl (35.1-43.9); Red Blood Count 4.75 M/mm3 (4.6-6.2); White Blood Count 13.6 K/mm3 (4.4-11.0)
[2023-04-06 10:09] LABS: Red Blood Cells-Urine 0-5 SEEN /hpf (0-5); Squamous Epithelial Cells - UA 0-5 SEEN /hpf (0-5)
[2023-04-06 10:20] LABS: AST(SGOT) 13 U/L (15-37); Alanine Aminotransfer ALT/SGPT 18 U/L (16-61); Albumin, Serum 3.5 g/dL (3.2-5.0); Alkaline Phosphatase 96 U/L (45-117); Anion Gap 7 (5-15); BUN 18 mg/dL (7-18); BUN/Creat Ratio 12.5 RATIO (10-20); Bilirubin, Direct 0.16 mg/dL (0.00-0.30); Calcium,Total 9.6 mg/dL (8.5-10.1); Chloride 103 mmol/L (98-107); Creatinine, Serum 1.44 mg/dL (0.70-1.30); EST Glomerular Filtration Rate 50 mL/min (>60); Est Glom Filt Rate - Afr Amer 61 mL/min (>60); Estimated Creatinine Clearance 36.31 ml/min; Globulin 4.3 g/dL (2.2-4.2); Glucose 105 mg/dL (74-106); Lipase 85 U/L (13-75); Potassium 3.8 mmol/L (3.5-5.1); Protein, Total 7.8 g/dL (6.4-8.2); Sodium Level 137 mmol/L (136-145)
--- NOTE | 2023-04-06 11:02 | CT_ITS ---
STUDY: CT ABDOMEN AND PELVIS WITH CONTRAST REASON FOR EXAM: Male, 82 years old. Abdominal pain RUQ pain x 3 days, prior appendectomy, hypertension, kidney disease, diverticulitis. RADIATION DOSAGE (If Supplied By Facility): CTDIvol = ( 15.67 ) mGy, DLP = ( 632.08 ) mGycm TECHNIQUE: Transaxial images were obtained from the dome of the diaphragm to the symphysis pubis without oral contrast. ml of 100mL Isovue-370 contrast was administered. Sagittal and coronal images were reconstructed. Individualized dose optimization techniques were used for this CT. COMPARISON: Right upper quadrant ultrasound dated April 06, 2023 FINDINGS: The visualized lung bases are unremarkable. The visualized portions of the heart are within normal limits. Normal liver. Normal gallbladder and extrahepatic biliary system. Normal spleen. Normal pancreas. Normal bilateral adrenal glands. A 3.25 cm benign/simple cyst is present in the midpole of the right kidney. Both kidneys are mildly atrophic. Mild perinephric stranding is present at the posterior aspect of the left kidney likely due to chronic inflammation. No radiopaque stones or hydronephrosis is present. Normal visualized stomach. Normal small intestine. Moderate rectosigmoid diverticulosis is present. A few diverticula of the cecum are also present. No inflammatory stranding or focal wall thickening is seen. There are surgical clips in the region of the appendix consistent with a prior appendectomy. Normal abdominal aorta. Normal inferior vena cava. Normal retroperitoneum. Normal urinary bladder. Mild enlargement and heterogeneity of the prostate gland noted. Small bilateral fat-containing inguinal hernias are present. Normal abdominal wall. There are diffuse degenerative changes of the visualized lumbar spine. CT/Abdomen/Pelvis W IV Cont ONLY IMPRESSION: 1. Moderate rectosigmoid diverticulosis is present. A few diverticula of the cecum are also present. No inflammatory stranding or focal wall thickening is seen. There are surgical clips in the region of the appendix consistent with a prior appendectomy. Electronically Signed: Joe De La Garza MD at 12:22 EDT ,
[2023-04-06] MEDS: ALPRAZolam 0.5 MG Tablet PO (12:58)
[2023-04-06 13:04] VITALS: BP 131/73; PULSE 78; RESP 16; O2SAT 98
[2023-04-06] MEDS: Mag Hydrox/Al Hydrox/Simeth 30 ML UDC PO (13:21)
== END 2023-04-06 14:00 | disposition home or self-care (01) ==
PROVIDERS: Emergency Provider Student in an Organized Health Care Education/Training Program; PCP Family Medicine Geriatric Medicine; Visit Provider Student in an Organized Health Care Education/Training Program
DX: R10.13 Epigastric pain (principal); G20 Parkinson's disease; K57.30 Diverticulosis of large intestine without perforation or abscess without bleeding; I10 Essential (primary) hypertension; F17.210 Nicotine dependence, cigarettes, uncomplicated; K21.9 Gastro-esophageal reflux disease without esophagitis; Z86.711 Personal history of pulmonary embolism; R10.11 Right upper quadrant pain
CPT/HCPCS: 74177; 76705; 80048; 80076; 81001; 83690; 85025; 96374; 96375; 99283; Q9967; A4216; J2405

== ENCOUNTER 2023-04-14 04:05 | Emergency (ER) | payer MEDICARE, OTHER, SELFPAY ==
[2023-04-14 04:06] VITALS: BP 189/67; PULSE 67; RESP 20; TEMP 36.6; O2SAT 100; BMI 23.6
[2023-04-14 05:00] VITALS: BP 189/67; PULSE 67; RESP 18; TEMP 36.6; O2SAT 100
[2023-04-14 05:09] LABS: Bacteria 0 SEEN /hpf (None Seen); Mucous, Urine 0 SEEN /hpf (<or=2+); Red Blood Cells-Urine 0 SEEN /hpf (0-5); Squamous Epithelial Cells - UA 0 SEEN /hpf (0-5); White Blood Cells 0 SEEN /hpf (0-5)
[2023-04-14 05:13] LABS: Absolute Lymphocyte Count 2.49 X10^3/uL (0.83-4.51); Absolute Neutrophil Count 6.2 X10^3/uL (2.0-7.7); Basophil# 0.07 X10^3/uL; Basophil% 0.7 % (0-1); Hematocrit 42.2 % (40-54); Hemoglobin 13.9 g/dL (13.0-16.5); Lymphocyte # 2.49 X10^3/ul (0.83-4.51); Lymphocyte % 25.3 % (19-41); Mean Corp Hgb Conc 32.9 g/dL (32-36); Mean Corpuscular Hgb 30.8 pg (27.0-32.0); Mean Corpuscular Volume 93.4 fL (80-94); Mean Platelet Vol. 8.7 fl (6.2-12.0); Monocyte# 0.92 X10^3/uL; Monocyte% 9.3 % (0-10); NRBC Flagged by Analyzer 0 % (0-5); Neutrophil # 6.24 X10^3/uL (2.7-7.7); Neutrophil % 63.3 % (47-70); Platelet Count 277 K/mm3 (150-450); RBC Distribution Width CV 12.8 % (11.6-14.6); Red Blood Count 4.52 M/mm3 (4.6-6.2); White Blood Count 9.9 K/mm3 (4.4-11.0)
[2023-04-14 05:22] LABS: Color, Urine Yellow (Yellow); Glucose, Dipstick Normal (Normal); Ketone-Dipstick Negative (Negative); Leukocyte Esterase-Dipstick Negative /ul (Negative); Nitrite-Dipstick Negative (Negative); Occult Blood-Urine Negative /ul (Negative); Protein-Dipstick Negative (Negative); Specific Gravity, Urine 1.005 (1.002-1.030); Urine Bilirubin Dipstick Negative (Negative); Urine Clarity Clear (Clear); Urine Urobilinogen Normal (Normal)
[2023-04-14 05:30] LABS: Anion Gap 5 (5-15); BUN 22 mg/dL (7-18); BUN/Creat Ratio 16.7 RATIO (10-20); Calcium,Total 9.1 mg/dL (8.5-10.1); Chloride 104 mmol/L (98-107); Creatinine, Serum 1.32 mg/dL (0.70-1.30); EST Glomerular Filtration Rate 55 mL/min (>60); Est Glom Filt Rate - Afr Amer 67 mL/min (>60); Estimated Creatinine Clearance 38.18 ml/min; Glucose 107 mg/dL (74-106); Potassium 3.8 mmol/L (3.5-5.1); Sodium Level 138 mmol/L (136-145)
[2023-04-14 06:08] VITALS: BP 198/54; PULSE 66; O2SAT 98
--- NOTE | 2023-04-14 06:08 | EX.ED.DYSGE1 ---
HPI History of Present Illness Chief Complaint: Complaint Informant: patient Narrative Narrative: Patient is an 82-year-old male with past medical history of Parkinson's disease as well as hypertension and GERD and previous pulmonary embolism currently on Eliquis. He states he has been having subjective chills and increased frequency of urination. He states this is present for the past 3 to 4 days. He denies any dysuria or rectal pain. He denies any abdominal pain associated with this. However he states because he feels overall unwell because of his chills and has concern for infection because of the urinary frequency presents for evaluation [facility] Medical History Arthritis Cancer Cataracts, bilateral Gastric reflux GERD (gastroesophageal reflux disease) History of diverticulitis History of stress test Hx of blood clots Hypertension Kidney disease Parkinson disease Prostate disorder Pulmonary embolism Smoker Syncope Wears dentures Wears glasses Home Medications apixaban 5 mg tablet (Eliquis) 5 mg PO BID Blood thinner 12/08/16 [History Last Taken 02/17/22] acetaminophen 500 mg tablet 1,000 mg (2 x 500 mg) PO Q6H PRN PRN Pain Score 1-10 #0 tabs 05/18/21 [Rx Last Taken Unknown] alprazolam 0.5 mg tablet 0.5 mg PO 4X/DAY 7 days #28 tabs 05/18/21 [Rx Last Taken 02/20/22] diclofenac sodium 1 % topical gel 4 g topical DAILY PRN joint pain #100 grams 10/22/21 [Rx Last Taken Unknown] doxepin 10 mg capsule 10 mg PO QHS 02/18/22 [History Last Taken Unknown] cholecalciferol (vitamin D3) 1,250 mcg (50,000 unit) capsule 1,250 mcg PO QWEEK #4 caps 01/16/23 [Rx Last Taken Unknown] hydrocodone-acetaminophen 5-325mg 5mg-325mg 1 tab PO Q6H PRN PRN Pain 3 days #10 TABLETS 02/24/23 [Rx Last Taken Unknown] carbidopa 25 mg-levodopa 100 mg tablet 2 tab PO TID #180 tabs 03/27/23 [Rx Last Taken Unknown] fludrocortisone 0.1 mg tablet See Rx Instructions .Route .COMPLEX #20 tabs 03/27/23 [Rx Last Taken Unknown] sertraline 50 mg tablet 50 mg PO DAILY #30 tabs 03/27/23 [Rx Last Taken Unknown] ondansetron 4 mg disintegrating tablet 4 mg PO Q8H PRN PRN Nausea #20 tabs 04/06/23 [Rx Last Taken Unknown] sucralfate 100 mg/mL oral suspension 1 g (10 mL) PO BID PRN epigastric pain #200 mL 04/06/23 [Rx Last Taken Unknown] tamsulosin 0.4 mg capsule (Flomax) 0.4 mg PO DAILY #30 caps 04/14/23 [Rx Last Taken Unknown] Allergy/AdvReac Type Severity Reaction Status Date / Time prednisone Allergy Severe Other Verified 04/06/23 09:23 Family History Father CVA (cerebral vascular accident) Surgical History H/O rotator cuff surgery History of adenoidectomy History of appendectomy History of tonsillectomy Hx of cystoscopy Hx of facial fracture repair Social History household members: none Smoking Status: Former smoker Tobacco: How many years used: 25 Electronic Cigarette Use: not used how long ago did patient quit smoking: quit in 1988 second hand exposure: No alcohol intake: former details: 1988 substance use type: does not use ROS ROS ED Constitutional Constitutional ED: Reports chills and subjective; Denies fever(s) Eyes Eyes: Denies change in vision ENT ENT ED: Denies sore throat Cardiovascular Cardiovascular: Denies chest pain Respiratory/Chest Respiratory/Chest: Denies cough or dyspnea Gastrointestinal Gastrointestinal: Denies abdominal pain, diarrhea, nausea or vomiting Genitourinary Genitourinary ED: Reports urinary frequency; Denies dysuria Musculoskeletal Musculoskeletal: Denies back pain or myalgias Integumentary Denies rash Neurologic Neurologic: Denies headache(s) Hematologic/Lymphatic Hematologic/Lymphatic: Reports easy bleeding and easy bruising EXAM Physical Exam Const Vital Signs: 04/14/23 04:06 04/14/23 05:00 04/14/23 06:08 Temperature 97.8 F 97.8 F Temperature Source Oral Oral Pulse Rate 67 67 66 Respiratory Rate 20 H 18 Blood Pressure 189/67 H 189/67 H 198/54 H Blood Pressure Mean 107 107 Pulse Ox 100 100 98 Oxygen Delivery Method Room Air Room Air Positive well nourished and well developed General Appearance ED: well developed HEENT Reports moist mucous membranes Eyes PERRL and EOMs intact bilaterally Neck supple Resp normal respiratory effort and clear to auscultation bilaterally Cardio regular rate and regular rhythm Rate: other Other Details: Radial pulses are +2-4 bilaterally are equal and symmetric GI non-tender, non-distended and no masses GI Narrative: Abdomen is soft nontender nondistended with hypoactive bowel sounds. No voluntary guarding or rigidity. No pulsatile mass or fluid wave. No organomegaly noted to suggest urinary retention Auscultation: hypoactive bowel sounds Palpation: soft Narrative: No discharge noted from the usual meatus no swelling or discoloration to the testicles no overlying soft tissue changes to suggest Saji's gangrene Back/Spine no CVA tenderness Extremity normal to inspection Neuro oriented x3 and CN's II-XII intact bilaterally Sensorium / Orientation: alert Psych mental status grossly normal Skin no rashes or lesions noted MDM MDM MDM Narrative Medical decision making narrative: Patient presented to the ER hypertensive but has a past medical history of this. He reported subjective chills with urinary frequency and therefore there is concern for UTI as a cause. Differential also includes BPH versus prostatitis versus acute kidney injury or pyelonephritis. Basic blood work and a urine sample were obtained as concern for UTI leading to chills is most likely diagnosis. Labs showed no elevation to his white count and kidney function is normal. UA revealed no signs of infection. Therefore at this time there is high likelihood patient is having bladder spasms or potential prostate issues as a cause of his recurrent urination. Therefore he will start Flomax to see if this helps control symptoms but as patient does not have acute kidney injury and there are no signs of systemic infection there is no need for further work-up or placement in the hospital he is otherwise safe for discharge History & Record Review Discussion w/independent historian: Patient Lab Data Attestation: I reviewed the patient's lab results. Labs: Laboratory Results - last 24 hr 04/14/23 04:55 WBC 9.9 RBC 4.52 L Hgb 13.9 Hct 42.2 MCV 93.4 MCH 30.8 MCHC 32.9 RDW Std Deviation 44.0 H RDW Coeff of Maritza 12.8 Plt Count 277 MPV 8.7 Immature Gran % (Auto) 0.400 Neut % (Auto) 63.3 Lymph % (Auto) 25.3 [place] % (Auto) 9.3 Eos % (Auto) 1.0 Baso % (Auto) 0.7 Absolute Neuts (auto) 6.2 Absolute Lymphs (auto) 2.49 Nucleated RBC % 0 Sodium 138 Potassium 3.8 Chloride 104 Carbon Dioxide 29.0 Anion Gap 5 BUN 22 H Creatinine 1.32 H Estim Creat Clear Calc 38.18 Est GFR (MDRD) Af Amer 67 Est GFR (MDRD) Non-Af 55 L BUN/Creatinine Ratio 16.7 Glucose 107 H Calcium 9.1 Urine Color Yellow Urine Clarity Clear Urine pH 7.0 Ur Specific [place] 1.005 Urine Protein Negative Urine Glucose (UA) Normal Urine Ketones Negative Urine Occult Blood Negative Urine Nitrite Negative Urine Bilirubin Negative Urine Urobilinogen Normal Ur Leukocyte Esterase Negative Urine RBC 0 SEEN Urine WBC 0 SEEN Ur Squamous Epith Cells 0 SEEN Urine Bacteria 0 SEEN Urine Mucus 0 SEEN Discharge Plan Triage Chief Complaint: Complaint ED Provider: Elie Morillo Dx/Rx/DC Orders Clinical Impression: Urinary frequency, Anxiety, HTN (hypertension), Parkinson's disease Instructions: Overactive Bladder Syndrome (OAB), Benign Prostatic Hyperplasia Prescriptions: New tamsulosin [Flomax] 0.4 mg capsule 0.4 mg PO DAILY Qty: 30 0RF No Action diclofenac sodium 1 % gel 4 g topical DAILY PRN (Reason: joint pain) Qty: 100 2RF cholecalciferol (vitamin D3) 1,250 mcg (50,000 unit) capsule 1,250 mcg PO QWEEK Qty: 4 6RF fludrocortisone 0.1 mg tablet See Rx Instructions .ROUTE .COMPLEX Qty: 20 5RF Rx Instructions: 1 tablet po every Friday, Friday, Friday and (to be taken in the morning). sertraline 50 mg tablet 50 mg PO DAILY Qty: 30 5RF carbidopa-levodopa 25-100 mg tablet 2 tab PO TID Qty: 180 5RF Eliquis 5 MG tablet 5 mg PO BID Rx Instructions: will stop 2 days prior acetaminophen 500 mg Tablet 1,000 mg PO Q6H PRN PRN (Reason: Pain Score 1-10) Qty: 0 0RF alprazolam 0.5 mg Tablet 0.5 mg PO 4X/DAY 7 Days Qty: 28 0RF doxepin 10 mg capsule 10 mg PO QHS Patient Comments: take 1 capsule by mouth once daily hydrocodone-acetaminophen [hydrocodone-acetaminophen] 5-325 mg tablet 1 tab PO Q6H PRN PRN (Reason: Pain) 3 Days Qty: 10 0RF sucralfate 100 mg/mL suspension 1 g PO BID PRN (Reason: epigastric pain) Qty: 200 0RF ondansetron 4 mg tablet,disintegrating 4 mg PO Q8H PRN PRN (Reason: Nausea) Qty: 20 0RF Primary Care Provider: Roberto Mullen Chi Referrals: Jonas Hess MD [Med Staff - Active Staff] - Roberto Mullen Chi, MD [Primary Care Provider] - Disposition Disposition: Home, Self Care Discharge Date/Time: 04/14/23 06:48
== END 2023-04-14 06:48 | disposition home or self-care (01) ==
PROVIDERS: Emergency Provider Emergency Medicine; PCP Family Medicine Geriatric Medicine; Visit Provider Emergency Medicine
DX: R35.0 Frequency of micturition (principal); G20 Parkinson's disease; I10 Essential (primary) hypertension; F41.9 Anxiety disorder, unspecified; Z86.711 Personal history of pulmonary embolism; Z79.01 Long term (current) use of anticoagulants; Z90.49 Acquired absence of other specified parts of digestive tract; Z87.891 Personal history of nicotine dependence; Z79.899 Other long term (current) drug therapy
CPT/HCPCS: 80048; 81001; 85025; 99282; A4216

== ENCOUNTER 2023-04-15 03:04 | Emergency (ER) | payer MEDICARE, OTHER, SELFPAY ==
[2023-04-15 03:05] VITALS: BP 158/81; PULSE 97; RESP 18; TEMP 36; O2SAT 98; BMI 25.0
--- NOTE | 2023-04-15 03:20 | RAD_ITS ---
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 Preserved vertebral body height. No fracture. No spondylolisthesis. Preservation of the normal thoracic kyphosis. No significant facet arthropathy. DISCS: Disc spaces are maintained. INCLUDED CHEST/ABDOMEN: No acute abnormalities. RAD/Thoracic Spine 2 Views IMPRESSION: No evidence of thoracic spinal fracture or spondylolisthesis. Electronically Signed: Twin Dias MD at 4:19 EDT ,
--- NOTE | 2023-04-15 03:20 | RAD_ITS ---
INDICATION: fall/injury, pain L EXAMINATION/TECHNIQUE: X-RAY - XR Pelvis 1 or 2 Views COMPARISON: 04/06/2023 FINDINGS: PELVIC BONES: No displaced fracture, destructive or sclerotic lesions. Note that overlapping bowel shadows may however obscure fine detail. Sacroiliac joints demonstrate degenerative changes. No widening of the pubic symphysis. HIPS: The articular structures are unremarkable. No displaced fracture seen in this frontal view. SOFT TISSUES: No soft tissue swelling or gas. RAD/Pelvis 1 or 2 Views IMPRESSION: No evidence of displaced pelvic or hip fracture. Electronically Signed: Twin Dias MD at 4:15 EDT ,
--- NOTE | 2023-04-15 03:21 | EDS_ITS ---
HPI HPI - Fall History of Present Illness Chief Complaint: Fall Informant: patient Narrative Narrative: Patient presents by EMS after 2 separate falls maybe a couple hours apart, presenting around 3:15 AM. He states he woke up to urinate, he got out of bed and felt lightheaded and fell but did not pass out or hit his head. The first time he scraped his left elbow, the second time he somehow hurt his back, he states that hurts throughout his entire back, he does not know if he landed on it, twisted it, he really is not sure. He states he has a history of Parkinson's, which makes him have issues walking, he states he had a walker at the bedside for the first time tonight, but he did not get a chance to use it until EMS came and then he was able to use it to walk to the ambulance. Denies pain in his left groin with doing so but states he thinks he hurt his left hip. States he has a history of standing up and his blood pressure dropping. He did not check it this morning. States he has not been drinking enough fluids lately and he feels like that is why. He states about a month or so ago he had teeth removed and replaced with dentures, and ever since he has had issues eating, poor appetite, and having to remind himself to drink fluids. [facility] Medical History Arthritis Cancer Cataracts, bilateral Gastric reflux GERD (gastroesophageal reflux disease) History of diverticulitis History of stress test Hx of blood clots Hypertension Kidney disease Parkinson disease Prostate disorder Pulmonary embolism Smoker Syncope Wears dentures Wears glasses Home Medications apixaban 5 mg tablet (Eliquis) 5 mg PO BID Blood thinner 12/08/16 [History Last Taken 02/17/22] acetaminophen 500 mg tablet 1,000 mg (2 x 500 mg) PO Q6H PRN PRN Pain Score 1-10 #0 tabs 05/18/21 [Rx Last Taken Unknown] alprazolam 0.5 mg tablet 0.5 mg PO 4X/DAY 7 days #28 tabs 05/18/21 [Rx Last Taken 02/20/22] diclofenac sodium 1 % topical gel 4 g topical DAILY PRN joint pain #100 grams 10/22/21 [Rx Last Taken Unknown] doxepin 10 mg capsule 10 mg PO QHS 02/18/22 [History Last Taken Unknown] cholecalciferol (vitamin D3) 1,250 mcg (50,000 unit) capsule 1,250 mcg PO QWEEK #4 caps 01/16/23 [Rx Last Taken Unknown] hydrocodone-acetaminophen 5-325mg 5mg-325mg 1 tab PO Q6H PRN PRN Pain 3 days #10 TABLETS 02/24/23 [Rx Last Taken Unknown] carbidopa 25 mg-levodopa 100 mg tablet 2 tab PO TID #180 tabs 03/27/23 [Rx Last Taken Unknown] fludrocortisone 0.1 mg tablet See Rx Instructions .Route .COMPLEX #20 tabs 03/27/23 [Rx Last Taken Unknown] sertraline 50 mg tablet 50 mg PO DAILY #30 tabs 03/27/23 [Rx Last Taken Unknown] ondansetron 4 mg disintegrating tablet 4 mg PO Q8H PRN PRN Nausea #20 tabs 04/06/23 [Rx Last Taken Unknown] sucralfate 100 mg/mL oral suspension 1 g (10 mL) PO BID PRN epigastric pain #200 mL 04/06/23 [Rx Last Taken Unknown] tamsulosin 0.4 mg capsule (Flomax) 0.4 mg PO DAILY #30 caps 04/14/23 [Rx Last Taken Unknown] Allergy/AdvReac Type Severity Reaction Status Date / Time prednisone Allergy Severe Other Verified 04/15/23 03:07 Family History Father CVA (cerebral vascular accident) Surgical History H/O rotator cuff surgery History of adenoidectomy History of appendectomy History of tonsillectomy Hx of cystoscopy Hx of facial fracture repair Social History household members: none Smoking Status: Former smoker Tobacco: How many years used: 25 Electronic Cigarette Use: not used how long ago did patient quit smoking: quit in 1988 second hand exposure: No alcohol intake: former details: 1988 substance use type: does not use ROS ROS ED Constitutional Constitutional ED: Denies chills or fever(s) Eyes Eyes: Denies change in vision or diplopia ENT ENT ED: Denies ear pain, epistaxis, facial pain or rhinorrhea Cardiovascular Cardiovascular: Reports lightheadedness; Denies chest pain, palpitations or syncope Respiratory/Chest Respiratory/Chest: Denies cough or dyspnea Gastrointestinal Gastrointestinal: Denies abdominal pain, diarrhea, melena, nausea or vomiting Genitourinary Genitourinary ED: Denies dysuria or hematuria Musculoskeletal Musculoskeletal: Denies back pain, extremity pain or neck pain Integumentary Denies abscess, Abrasions, laceration or rash Neurologic Neurologic: Reports as per HPI and tremor(s); Denies confusion, headache(s), paresthesias or weakness EXAM Physical Exam Const Vital Signs: 04/15/23 03:05 04/15/23 03:08 Temperature 96.8 F L Temperature Source Temporal Pulse Rate 97 Respiratory Rate 18 Respiratory Effort Normal Respiratory Depth Normal Respiratory Pattern Normal Blood Pressure 158/81 H Blood Pressure Mean 106 Pulse Ox 98 Oxygen Delivery Method Room Air Room Air Positive well nourished and well developed General Appearance ED: well developed and NAD HEENT Reports TM's clear and nasal mucous membranes and turbinates normal atraumatic Face and Sinus: Negative for facial tenderness Tympanic Membrane ED: Yes TM's clear Eyes PERRL and EOMs intact bilaterally Visual Acuity: other Other Details: no entrapment or pain with extraocular movements Neck full ROM and supple General: Negative for tenderness Chest Wall inspection of chest normal and palpation of chest normal Chest: symmetrical chest wall rise; Negative for crepitus or tenderness Resp normal respiratory effort and clear to auscultation bilaterally Percussion: other equal BS bilat Cardio no murmurs Rate: regular rate Rhythm: regular rhythm GI normal to inspection, nondistended, normoactive bowel sounds, soft to palpation and non-tender Back/Spine Back/Spine Narrative: Good range of motion but painful when sitting forward and up Tender throughout most of the thoracic spine without signs of trauma or step-off/deformity Nontender throughout cervical and lumbar spine. Tender mildly at the left iliac wing and SI joint area. No deformities or signs of trauma on the skin. Cervical Spine: Negative for cervical spine tenderness Thoracic Spine / Upper Back: thoracic spinal tenderness Lumbar Spine / Lower Back: Negative for lumbar spinal tenderness Extremity normal to inspection and full ROM Extremity Narrative: Nontender in the left hip/greater trochanter, painless range of motion of both hips, and all other joints of all 4 extremities General Extremety ED: Negative for tenderness Neuro oriented x3, CN's II-XII intact bilaterally, moves all extremities, no focal motor deficits and no sensory deficits noted Conrad Coma Scale: document GCS findings Spontaneous Obeys Commands Oriented 15 Sensorium / Orientation: awake and alert Psych mental status grossly normal and thought process normal Skin Skin Narrative: Minor abrasion at the medial aspect of the left elbow without any bony tenderness, no laceration to repair, there is also nearby contusion without any bony tenderness. No other signs of trauma. Lesions: no lesions Rashes: no rashes MDM MDM MDM Narrative Medical decision making narrative: Patient describing orthostatic symptoms and mechanism of fall. His blood pressure and vital signs are good here, he was given IV fluids, afterwards we were able to stand him up without dizziness/lightheadedness or near syncope. He had no telemetry events while being monitored waiting for testing. He is not anemic, not in renal failure no electrolyte deficiencies. Obtained x-rays of both his pelvis 1 view on my interpretation negative for any acute fracture or dislocation, and thoracic spine 2 views on my interpretation negative for any acute fracture. Patient said he had multiple falls recently. I discussed whether he felt safe or not going home and he was questioning it. I asked him if he wanted to be admitted for placement for assisted living, he thought about it for a while but states he is not ready for that. If he can secure a ride home, he would like to go home. He was able to contact his sister who came to get him. I discussed other options, he is interested in having a home health evaluation to see if there is any other help he can get at home. 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 I did discuss with the patient my recommendation for him to stay hydrated, and when he gets out of bed or rises up from a supine position, to do so slowly so as less likely to feel lightheaded. Lab Data Attestation: I reviewed the patient's lab results. Labs: Laboratory Results - last 24 hr 04/15/23 03:26 WBC 13.2 H RBC 4.54 L Hgb 14.1 Hct 42.5 MCV 93.6 MCH 31.1 MCHC 33.2 RDW Std Deviation 44.8 H RDW Coeff of Maritza 13.1 Plt Count 270 MPV 8.6 Immature Gran % (Auto) 0.300 Neut % (Auto) 76.1 H Lymph % (Auto) 14.4 L [place] % (Auto) 8.5 Eos % (Auto) 0.2 Baso % (Auto) 0.5 Absolute Neuts (auto) 10.0 H Absolute Lymphs (auto) 1.90 Nucleated RBC % 0 Sodium 140 Potassium 3.7 Chloride 106 Carbon Dioxide 25.0 Anion Gap 9 BUN 26 H Creatinine 1.42 H Estim Creat Clear Calc 35.49 Est GFR (MDRD) Af Amer 61 Est GFR (MDRD) Non-Af 51 L BUN/Creatinine Ratio 18.3 Glucose 126 H Calcium 9.5 Radiography Diagnostic Testing: Clinical Impression(s) from Imaging Studies Pelvis X-Ray 04/15/23 03:20 IMPRESSION: No evidence of displaced pelvic or hip fracture. Electronically Signed: Twin Dias MD at 4:15 EDT , Thoracic Spine X-Ray 04/15/23 03:20 IMPRESSION: No evidence of thoracic spinal fracture or spondylolisthesis. Electronically Signed: Twin Dias MD at 4:19 EDT , Discharge Plan Triage Chief Complaint: Fall ED Provider: Delfino Cloud Dx/Rx/DC Orders Clinical Impression: Contusion of back, Orthostatic hypotension, Abrasion of elbow, left, Parkinson's disease Instructions: Orthostatic Hypotension, ED Back Contusion Prescriptions: No Action diclofenac sodium 1 % gel 4 g topical DAILY PRN (Reason: joint pain) Qty: 100 2RF cholecalciferol (vitamin D3) 1,250 mcg (50,000 unit) capsule 1,250 mcg PO QWEEK Qty: 4 6RF fludrocortisone 0.1 mg tablet See Rx Instructions .ROUTE .COMPLEX Qty: 20 5RF Rx Instructions: 1 tablet po every Friday, Friday, Friday and (to be taken in the morning). sertraline 50 mg tablet 50 mg PO DAILY Qty: 30 5RF carbidopa-levodopa 25-100 mg tablet 2 tab PO TID Qty: 180 5RF Eliquis 5 MG tablet 5 mg PO BID Rx Instructions: will stop 2 days prior acetaminophen 500 mg Tablet 1,000 mg PO Q6H PRN PRN (Reason: Pain Score 1-10) Qty: 0 0RF alprazolam 0.5 mg Tablet 0.5 mg PO 4X/DAY 7 Days Qty: 28 0RF doxepin 10 mg capsule 10 mg PO QHS Patient Comments: take 1 capsule by mouth once daily hydrocodone-acetaminophen [hydrocodone-acetaminophen] 5-325 mg tablet 1 tab PO Q6H PRN PRN (Reason: Pain) 3 Days Qty: 10 0RF sucralfate 100 mg/mL suspension 1 g PO BID PRN (Reason: epigastric pain) Qty: 200 0RF ondansetron 4 mg tablet,disintegrating 4 mg PO Q8H PRN PRN (Reason: Nausea) Qty: 20 0RF tamsulosin [Flomax] 0.4 mg capsule 0.4 mg PO DAILY Qty: 30 0RF Primary Care Provider: Roberto Mullen Chi Referrals: Roberto Mullen Chi, MD [Primary Care Provider] - 3-5 Days Disposition Disposition: Home, Self Care Discharge Date/Time: 04/15/23 05:46
[2023-04-15 03:30] LABS: Basophil# 0.06 X10^3/uL; Basophil% 0.5 % (0-1); Eosinophil# 0.03 X10^3/uL; Eosinophils% 0.2 % (0-5); Hematocrit 42.5 % (40-54); Hemoglobin 14.1 g/dL (13.0-16.5); Lymphocyte % 14.4 % (19-41); Mean Corp Hgb Conc 33.2 g/dL (32-36); Mean Corpuscular Hgb 31.1 pg (27.0-32.0); Mean Corpuscular Volume 93.6 fL (80-94); Mean Platelet Vol. 8.6 fl (6.2-12.0); Monocyte# 1.12 X10^3/uL; Monocyte% 8.5 % (0-10); NRBC Flagged by Analyzer 0 % (0-5); Neutrophil # 10.03 X10^3/uL (2.7-7.7); Neutrophil % 76.1 % (47-70); Platelet Count 270 K/mm3 (150-450); RBC Distribution Width CV 13.1 % (11.6-14.6); RBC Distribution Width SD 44.8 fl (35.1-43.9); Red Blood Count 4.54 M/mm3 (4.6-6.2); White Blood Count 13.2 K/mm3 (4.4-11.0)
[2023-04-15 04:52] LABS: Anion Gap 9 (5-15); BUN 26 mg/dL (7-18); BUN/Creat Ratio 18.3 RATIO (10-20); Calcium,Total 9.5 mg/dL (8.5-10.1); Chloride 106 mmol/L (98-107); Creatinine, Serum 1.42 mg/dL (0.70-1.30); EST Glomerular Filtration Rate 51 mL/min (>60); Est Glom Filt Rate - Afr Amer 61 mL/min (>60); Estimated Creatinine Clearance 35.49 ml/min; Glucose 126 mg/dL (74-106); Potassium 3.7 mmol/L (3.5-5.1); Sodium Level 140 mmol/L (136-145)
== END 2023-04-15 05:46 | disposition home or self-care (01) ==
PROVIDERS: Emergency Provider Emergency Medicine; PCP Family Medicine Geriatric Medicine; Visit Provider Emergency Medicine
DX: S20.229A Contusion of unspecified back wall of thorax, initial encounter (principal); G20 Parkinson's disease; I95.1 Orthostatic hypotension; Z87.891 Personal history of nicotine dependence; S50.312A Abrasion of left elbow, initial encounter; I10 Essential (primary) hypertension; Z86.711 Personal history of pulmonary embolism; Z79.01 Long term (current) use of anticoagulants; Z79.899 Other long term (current) drug therapy; Z90.49 Acquired absence of other specified parts of digestive tract; W01.10XA Fall on same level from slipping, tripping and stumbling with subsequent striking against unspecified object, initial encounter
CPT/HCPCS: 72070; 72170; 80048; 85025; 96360; 99285; J7030; A4216

== ENCOUNTER 2023-04-16 22:35 | Observation (INO) | payer MEDICARE, OTHER, SELFPAY ==
[2023-04-16 22:39] VITALS: BP 177/85; PULSE 99; RESP 16; TEMP 36.6; O2SAT 98; BMI 25.0
--- NOTE | 2023-04-16 22:54 | CT_ITS ---
EXAM: CT HEAD WITHOUT INTRAVENOUS CONTRAST CLINICAL INDICATION: fall/trauma TECHNIQUE: Multiple axial images were obtained of the head without intravenous contrast. This CT exam was performed using one or more of the following dose reduction techniques: automated exposure control, adjustment of the mA and/or kV according to patient size, and/or use of iterative reconstruction technique. RADIATION DOSE: CTDIvol = 44.99 mGy, DLP = 880.47 mGy-cm COMPARISON: No relevant prior studies available. FINDINGS: BRAIN AND EXTRA-AXIAL SPACES: Moderate cerebral volume loss, mild ventriculomegaly. No intra- or extra-axial hemorrhage. No evidence of acute infarct. No intracranial mass or mass effect. There is preservation of the correa/white matter interface. Posterior fossa structures are unremarkable. Basal cisterns are patent. BONES/JOINTS: Unremarkable. No discrete lytic or blastic abnormalities. SINUSES: Left nasal septal deviation, prominent, and right froy bullosa. Well-aerated with included paranasal sinuses. MASTOID AIR CELLS: Unremarkable. Clear. ORBITS: Visualized globes, extraocular muscles, optic nerves and retrobulbar fat appear unremarkable. CT/Brain/Head without Contrast IMPRESSION: No acute intracranial abnormality. Moderate chronic changes. Electronically Signed: Beatriz Rodriguez MD at 1:07 EDT ,
--- NOTE | 2023-04-16 22:54 | CT_ITS ---
EXAM: CT CERVICAL SPINE WITHOUT INTRAVENOUS CONTRAST CLINICAL INDICATION: fall/trauma TECHNIQUE: Helically acquired images were obtained of the cervical spine without intravenous contrast. 2D reformatted images were reviewed. This CT exam was performed using one or more of the following dose reduction techniques: automated exposure control, adjustment of the mA and/or kV according to patient size, and/or use of iterative reconstruction technique. RADIATION DOSE: CTDIvol = 20.41 mGy, DLP = 449.74 mGy-cm. COMPARISON: No relevant prior studies available. FINDINGS: VERTEBRAE: Thick ureter flowing ossification at C4-C6 and prominent anterior osteophytes at additional levels. No fracture or subluxation. Mild posterior disc margin calcifications 3-4.. Mild apparent spinal stenosis at C3-4 due to mild osteophyte-disc complex, AP diameter of the canal 8.4 mm. No discrete lytic or blastic abnormality. Normal craniocervical junction and cervicothoracic junction. DISCS/SPINAL CANAL/NEURAL FORAMINA: See above. SOFT TISSUES: Unremarkable. No prevertebral soft tissue swelling. VASCULATURE: Mild right and slight left cervical carotid calcifications. LYMPH NODES: Unremarkable. No cervical adenopathy. THYROID: Heterogeneous and prominent thyroid streak artifact through the thyroid, uncertain whether there is focal nodule.. Mild distention of the upper thoracic esophagus with fluid and gas. LUNG APICES: Unremarkable as visualized. Clear. CT/Spine Cervical without Contras IMPRESSION: 1. No acute posttraumatic abnormality. Mild degenerative changes. Borderline-mild spinal stenosis. 2. Thyromegaly and streak artifacts the thyroid, heterogeneous appearance. Electronically Signed: Beatriz Rodriguez MD at 1:13 EDT ,
--- NOTE | 2023-04-16 22:54 | CT_ITS ---
EXAM: CT ABDOMEN AND PELVIS WITH INTRAVENOUS CONTRAST CLINICAL INDICATION: RUQ pain TECHNIQUE: Helically acquired images were obtained of the abdomen and pelvis with intravenous contrast. This CT exam was performed using one or more of the following dose reduction techniques: automated exposure control, adjustment of the mA and/or kV according to patient size, and/or use of iterative reconstruction technique. CONTRAST: IV 100mL Isovue-300 RADIATION DOSE: CTDIvol = 13.36 mGy, DLP = 459.16 mGy-cm. COMPARISON: Recent exam April 06, 2023, mentioned appendectomy and moderate diverticulosis. FINDINGS: LOWER THORAX: Small band of atelectasis right lung base. No significant infiltrates. At least mild coronary artery calcifications on the left. No cardiomegaly. No significant pericardial effusion. ABDOMEN: LIVER: Unremarkable. Homogeneous. No focal mass. GALLBLADDER AND BILE DUCTS: Unremarkable. No calcified gallstones. No gallbladder distention or wall edema. No intra- or extrahepatic biliary ductal dilation. PANCREAS: Unremarkable. No focal cystic or solid mass. SPLEEN: Unremarkable. Normal size without focal cystic or solid mass. ADRENALS: Unremarkable. No nodules. KIDNEYS AND URETERS: Small subcapsular hypodense fluid collection posterior to the lower pole of the left kidney appears similar, roughly 1 cm thickness by 2.2 cm transverse. At least 3 stones in left mid to lower calyces and and collapsed left renal pelvis, more distal appearance of the stone in the left renal pelvis, it was previously and left lower infundibulum. 6 mm x 4 mm stone in left renal pelvis without significant distention. A small left ureter. No hydronephrosis. STOMACH AND BOWEL: Almost collapsed stomach with similar mucosal enhancement and mildly thickened appearance of the pylorus and gastric antrum. There is moderate diverticulosis of the proximal to mid sigmoid and distal descending colon. Only mild gas and minimal fluid in much of the sigmoid. Moderate stool in the rectum. Mild diverticulosis in the right colon. No stomach or bowel distention. PELVIS: APPENDIX: Appendectomy changes. BLADDER: Unremarkable. REPRODUCTIVE: Prostatomegaly, 5.1 cm transverse. ABDOMEN and PELVIS: INTRAPERITONEAL SPACE: Unremarkable. No ascites or other fluid collection. No free air. BONES/JOINTS: Chronic degenerative anterior lumbar spine findings. No suspicious lytic or blastic abnormality. SOFT TISSUES: Fat-containing inguinal hernias, greater on the right, no soft tissue stranding. VASCULATURE: Moderate peripheral calcification of the aorta, no aneurysm or dissection. LYMPH NODES: Unremarkable. No enlarged lymph nodes. CT/Abdomen/Pelvis W IV Cont ONLY IMPRESSION: 1. Change in location of renal stone on the left, a previously seen stone in the lower pole infundibulum is now in the nondilated left renal pelvis-UPJ, correlate with left flank pain. No alana hydronephrosis. 2. Similar mild fluid density or scarring, less likely infiltrative type neoplasm involving the posterior left kidney., Suspected scarring, similar to an older exam from March 10, 2022. Fairly [id number] stenosis of renal artery origins calcification, greater on the left. Best seen on coronal images. 3. Moderate distal diverticulosis, no evidence of acute diverticulitis. Cannot exclude very early or mild colitis, most of the colon is only minimally distended, but it is not convincing. 4. Moderate stool in the rectum. 5. Possibly mild gastroduodenitis. 6. Prostatomegaly. Electronically Signed: Beatriz Rodriguez MD at 1:32 EDT ,
--- NOTE | 2023-04-16 22:57 | ED.VIS.FALL ---
HPI HPI - Fall History of Present Illness Chief Complaint: Fall Informant: patient and EMS Narrative Narrative: Patient was seen here several days ago for a fall, he returns again after several more falls. One earlier he had a scrape on his right elbow. Tonight, he was walking from his bathroom to his bedroom and he got lightheaded, his legs became weak and this caused him to fall. Now he has neck and back pain, he denies any other new symptoms. He has a headache, he cannot remember if he developed this before the fall or after it. It is not severe. He does not know if he hit his head or not. Does not know how he landed. He did not lose consciousness. Denies any other prodromal symptoms other than lightheadedness, no dyspnea, palpitations, chest discomfort. The last time he was here, we discussed drinking more fluids, he states he does not think he has. He states that his family member has been looking into getting him into assisted living, he has an appointment with his PCP tomorrow. [facility] Medical History Arthritis Cancer Cataracts, bilateral Gastric reflux GERD (gastroesophageal reflux disease) History of diverticulitis History of stress test Hx of blood clots Hypertension Kidney disease Parkinson disease Prostate disorder Pulmonary embolism Smoker Syncope Wears dentures Wears glasses Home Medications apixaban 5 mg tablet (Eliquis) 5 mg PO BID Blood thinner 12/08/16 [History Last Taken 02/17/22] alprazolam 0.5 mg tablet 0.5 mg PO 4X/DAY 7 days #28 tabs 05/18/21 [Rx Last Taken 02/20/22] doxepin 10 mg capsule 10 mg PO QHS 02/18/22 [History Last Taken Unknown] cholecalciferol (vitamin D3) 1,250 mcg (50,000 unit) capsule 1,250 mcg PO QWEEK #4 caps 01/16/23 [Rx Last Taken Unknown] hydrocodone-acetaminophen 5-325mg 5mg-325mg 1 tab PO Q6H PRN PRN Pain 3 days #10 TABLETS 02/24/23 [Rx Last Taken Unknown] carbidopa 25 mg-levodopa 100 mg tablet 2 tab PO TID #180 tabs 03/27/23 [Rx Last Taken Unknown] fludrocortisone 0.1 mg tablet See Rx Instructions .Route .COMPLEX #20 tabs 03/27/23 [Rx Last Taken Unknown] sertraline 50 mg tablet 50 mg PO DAILY #30 tabs 03/27/23 [Rx Last Taken Unknown] tamsulosin 0.4 mg capsule (Flomax) 0.4 mg PO DAILY #30 caps 04/14/23 [Rx Last Taken Unknown] amlodipine 5 mg tablet 5 mg PO DAILY 04/17/23 [History Last Taken Unknown] Allergy/AdvReac Type Severity Reaction Status Date / Time prednisone Allergy Severe Other Verified 04/15/23 03:07 Family History Father CVA (cerebral vascular accident) Surgical History H/O rotator cuff surgery History of adenoidectomy History of appendectomy History of tonsillectomy Hx of cystoscopy Hx of facial fracture repair Social History household members: none Smoking Status: Former smoker Tobacco: How many years used: 25 Electronic Cigarette Use: not used how long ago did patient quit smoking: quit in 1988 second hand exposure: No alcohol intake: former details: 1988 substance use type: does not use ROS ROS ED Constitutional Constitutional ED: Denies chills or fever(s) Eyes Eyes: Denies change in vision or diplopia ENT ENT ED: Denies ear pain, epistaxis, facial pain or rhinorrhea Cardiovascular Cardiovascular: Reports lightheadedness; Denies chest pain, palpitations or syncope Respiratory/Chest Respiratory/Chest: Denies cough or dyspnea Gastrointestinal Gastrointestinal: Denies abdominal pain, diarrhea, melena, nausea or vomiting Genitourinary Genitourinary ED: Denies dysuria or hematuria Musculoskeletal Musculoskeletal: Reports back pain and neck pain; Denies extremity pain Integumentary Denies abscess, Abrasions, laceration or rash Neurologic Neurologic: Reports headache(s); Denies confusion, paresthesias or weakness EXAM Physical Exam Const Vital Signs: 04/16/23 22:39 04/16/23 22:44 04/17/23 01:29 Temperature 97.8 F Temperature Source Oral Pulse Rate 99 87 Respiratory Rate 16 17 Respiratory Effort Normal Non-Labored Blood Pressure 177/85 H 159/79 H Blood Pressure Mean 115 105 Pulse Ox 98 95 Oxygen Delivery Method Room Air Room Air Positive well nourished and well developed General Appearance ED: well developed and NAD HEENT Reports TM's clear and nasal mucous membranes and turbinates normal atraumatic Face and Sinus: Negative for facial tenderness Tympanic Membrane ED: Yes TM's clear Eyes PERRL and EOMs intact bilaterally Visual Acuity: other Other Details: no entrapment or pain with extraocular movements Neck full ROM and supple Neck Narrative: Diffuse posterior tenderness no step-off or obvious signs of trauma General: tenderness Chest Wall inspection of chest normal Chest Narrative: Mild tenderness right lower ribs anteriorly without crepitance or flail. Chest: symmetrical chest wall rise and tenderness; Negative for crepitus Resp normal respiratory effort and clear to auscultation bilaterally Percussion: other equal BS bilat Cardio no murmurs Rate: regular rate Rhythm: regular rhythm GI soft to palpation GI Narrative: Tender right upper quadrant, there is some faint erythema questionable contusion here. Tenderness extends to the ribs in the right upper quadrant. There is no other areas of abdominal tenderness. No guarding or rebound tenderness. Back/Spine Back/Spine Narrative: Painful range of motion but able. Tender in the mid and low thoracic spine, no upper thoracic tenderness but tender throughout the neck. No signs of trauma. No lumbosacral tenderness. No rib cage tenderness. Cervical Spine: cervical spine tenderness Thoracic Spine / Upper Back: thoracic spinal tenderness Lumbar Spine / Lower Back: Negative for lumbar spinal tenderness Extremity normal to inspection and full ROM General Extremety ED: Negative for tenderness Neuro oriented x3, CN's II-XII intact bilaterally, moves all extremities, no focal motor deficits and no sensory deficits noted Alexsander Coma Scale: document GCS findings Spontaneous Obeys Commands Oriented 15 Sensorium / Orientation: awake and alert Psych mental status grossly normal and thought process normal Skin Skin Narrative: New acute minor abrasion right elbow, old healing abrasion left elbow. Lesions: no lesions Rashes: no rashes MDM MDM MDM Narrative Medical decision making narrative: 2 view x-ray series of the thoracic spine on my interpretation negative for any acute fractures, radiology in agreement. Also perform CT of the head, cervical spine, and abdomen/pelvis evaluating for injuries. I reviewed these images and the reports and I agree with them, negative for anything acute. I repeated some of his labs. He has a leukocytosis this is nonspecific. His creatinine is stable, his BUN is not significantly elevated, and better compared with prior. He was given gentle IV fluids while we observed him, give him some Tylenol his headache resolved. Urinalysis repeated no acute abnormalities of infection. Chest x-ray from a couple days ago showed no pneumonia, the bases of the lungs and the CT abdomen/pelvis showed no acute pneumonia I do not think we need to repeat his x-ray. I did review the findings and the CT abdomen/pelvis, I do not think any of these need to be emergently addressed, I think they are more likely chronic issues. Patient is not having acute left flank pain, so the stone in the left UPJ is not likely obstructing. Again offered/recommended admission. He declined 2 days ago. He states his family member is trying to get him into [facility]. He is amenable to stay so we can expedite that process. Lab Data Attestation: I reviewed the patient's lab results. Labs: Laboratory Results - last 24 hr 04/16/23 04/17/23 23:30 00:15 WBC 15.2 H RBC 4.39 L Hgb 13.8 Hct 40.6 MCV 92.5 MCH 31.4 MCHC 34.0 RDW Std Deviation 43.8 RDW Coeff of Maritza 13.0 Plt Count 272 MPV 8.8 Immature Gran % (Auto) 0.800 Neut % (Auto) 78.8 H Lymph % (Auto) 10.8 L [place] % (Auto) 9.1 Eos % (Auto) 0.1 Baso % (Auto) 0.4 Absolute Neuts (auto) 12.0 H Absolute Lymphs (auto) 1.64 Nucleated RBC % 0 Sodium 134 L Potassium 3.8 Chloride 100 Carbon Dioxide 25.0 Anion Gap 9 BUN 18 Creatinine 1.49 H Estim Creat Clear Calc 33.82 Est GFR (MDRD) Af Amer 58 L Est GFR (MDRD) Non-Af 48 L BUN/Creatinine Ratio 12.1 Glucose 94 Calcium 9.2 Total Bilirubin 0.90 AST 44 H ALT 16 Alkaline Phosphatase 94 Troponin I High Sens 50 Total Protein 7.9 Albumin 3.5 Globulin 4.4 H Albumin/Globulin Ratio 0.8 L Urine Color Yellow Urine Clarity Clear Urine pH 6.0 Ur Specific [place] 1.010 Urine Protein 15 H Urine Glucose (UA) Normal Urine Ketones 5 H Urine Occult Blood 25 H Urine Nitrite Negative Urine Bilirubin Negative Urine Urobilinogen 1 H Ur Leukocyte Esterase Negative Urine RBC 0 SEEN Urine WBC 0-5 SEEN Ur Squamous Epith Cells 0 SEEN Urine Bacteria RARE Urine Mucus 0 SEEN Radiography Diagnostic Testing: Clinical Impression(s) from Imaging Studies Abdomen/Pelvis CT 04/16/23 22:54 IMPRESSION: 1. Change in location of renal stone on the left, a previously seen stone in the lower pole infundibulum is now in the nondilated left renal pelvis-UPJ, correlate with left flank pain. No alana hydronephrosis. 2. Similar mild fluid density or scarring, less likely infiltrative type neoplasm involving the posterior left kidney., Suspected scarring, similar to an older exam from March 10, 2022. Fairly [id number] stenosis of renal artery origins calcification, greater on the left. Best seen on coronal images. 3. Moderate distal diverticulosis, no evidence of acute diverticulitis. Cannot exclude very early or mild colitis, most of the colon is only minimally distended, but it is not convincing. 4. Moderate stool in the rectum. 5. Possibly mild gastroduodenitis. 6. Prostatomegaly. Electronically Signed: Beatriz Rodriguez MD at 1:32 EDT , Brain CT 04/16/23 22:54 IMPRESSION: No acute intracranial abnormality. Moderate chronic changes. Electronically Signed: Beatriz Rodriguez MD at 1:07 EDT , Cervical Spine CT 04/16/23 22:54 IMPRESSION: 1. No acute posttraumatic abnormality. Mild degenerative changes. Borderline-mild spinal stenosis. 2. Thyromegaly and streak artifacts the thyroid, heterogeneous appearance. Electronically Signed: Beatriz Rodriguez MD at 1:13 EDT , Thoracic Spine X-Ray 04/17/23 00:00 IMPRESSION: Stable exam. No acute findings. Electronically Signed: Beatriz Rodriguez MD at 0:59 EDT Reading Location ID and State: [facility] / [place] Tel , Service support , Rhythm Strip Rhythm Strip: Sinus Rhythm Rate: 95 Ectopy: None EKG Initial EKG: Attestation: I personally reviewed and interpreted this EKG as follows: Interpretation: Sinus Rhythm, No Acute Injury Pattern and RBBB Prior EKG tracings: available for review Prior: Unchanged Management Discussion w/another healthcare provider: Hospitalist Discharge Plan Triage Chief Complaint: Fall ED Provider: Delfino Cloud Dx/Rx/DC Orders Clinical Impression: Declining functional status, Parkinson's disease, Acute thoracic myofascial strain, Acute cervical myofascial strain, Multiple falls, Abrasion of elbow, right, CKD (chronic kidney disease), Orthostasis Prescriptions: No Action cholecalciferol (vitamin D3) 1,250 mcg (50,000 unit) capsule 1,250 mcg PO QWEEK Qty: 4 6RF fludrocortisone 0.1 mg tablet See Rx Instructions .ROUTE .COMPLEX Qty: 20 5RF Rx Instructions: 1 tablet po every Friday, Friday, Friday and (to be taken in the morning). sertraline 50 mg tablet 50 mg PO DAILY Qty: 30 5RF carbidopa-levodopa 25-100 mg tablet 2 tab PO TID Qty: 180 5RF Eliquis 5 MG tablet 5 mg PO BID Rx Instructions: will stop 2 days prior alprazolam 0.5 mg Tablet 0.5 mg PO 4X/DAY 7 Days Qty: 28 0RF doxepin 10 mg capsule 10 mg PO QHS Patient Comments: take 1 capsule by mouth once daily hydrocodone-acetaminophen [hydrocodone-acetaminophen] 5-325 mg tablet 1 tab PO Q6H PRN PRN (Reason: Pain) 3 Days Qty: 10 0RF tamsulosin [Flomax] 0.4 mg capsule 0.4 mg PO DAILY Qty: 30 0RF amlodipine 5 mg tablet 5 mg PO DAILY Patient Comments: take 1 tablet by mouth once daily Primary Care Provider: Roberto Mullen Chi Referrals: Roberto Mullen Chi, MD [Primary Care Provider] -
[2023-04-16] MEDS: Acetaminophen 500 MG Tablet 1000 MG PO (23:11)
[2023-04-16] MEDS: 0.9% Normal Saline 1,000 ML 200 ML IV (23:31)
[2023-04-16 23:42] LABS: Absolute Lymphocyte Count 1.64 X10^3/uL (0.83-4.51); Basophil# 0.06 X10^3/uL; Basophil% 0.4 % (0-1); Eosinophil# 0.02 X10^3/uL; Eosinophils% 0.1 % (0-5); Hematocrit 40.6 % (40-54); Hemoglobin 13.8 g/dL (13.0-16.5); Lymphocyte # 1.64 X10^3/ul (0.83-4.51); Lymphocyte % 10.8 % (19-41); Mean Corpuscular Hgb 31.4 pg (27.0-32.0); Mean Corpuscular Volume 92.5 fL (80-94); Mean Platelet Vol. 8.8 fl (6.2-12.0); Monocyte# 1.39 X10^3/uL; Monocyte% 9.1 % (0-10); NRBC Flagged by Analyzer 0 % (0-5); Neutrophil # 12.01 X10^3/uL (2.7-7.7); Neutrophil % 78.8 % (47-70); Platelet Count 272 K/mm3 (150-450); RBC Distribution Width SD 43.8 fl (35.1-43.9); Red Blood Count 4.39 M/mm3 (4.6-6.2); White Blood Count 15.2 K/mm3 (4.4-11.0)
[2023-04-16 23:58] LABS: ALB/GLOB Ratio 0.8 RATIO (0.9-2.4); AST(SGOT) 44 U/L (15-37); Alanine Aminotransfer ALT/SGPT 16 U/L (16-61); Albumin, Serum 3.5 g/dL (3.2-5.0); Alkaline Phosphatase 94 U/L (45-117); Anion Gap 9 (5-15); BUN 18 mg/dL (7-18); BUN/Creat Ratio 12.1 RATIO (10-20); Calcium,Total 9.2 mg/dL (8.5-10.1); Chloride 100 mmol/L (98-107); Creatinine, Serum 1.49 mg/dL (0.70-1.30); EST Glomerular Filtration Rate 48 mL/min (>60); Est Glom Filt Rate - Afr Amer 58 mL/min (>60); Estimated Creatinine Clearance 33.82 ml/min; Globulin 4.4 g/dL (2.2-4.2); Glucose 94 mg/dL (74-106); Potassium 3.8 mmol/L (3.5-5.1); Protein, Total 7.9 g/dL (6.4-8.2); Sodium Level 134 mmol/L (136-145); Troponin-I HS 50 pg/mL (3.0-78.0)
--- NOTE | 2023-04-17 | RAD_ITS ---
EXAM: XR THORACIC SPINE, 2 VIEWS CLINICAL INDICATION: fall/injury TECHNIQUE: Frontal and lateral views of the thoracic spine. COMPARISON: April 15, 2023. FINDINGS: VERTEBRAE: Flowing ossification of the anterior thoracic spine consistent with diffuse idiopathic skeletal hyperostosis or syndesmophytes. No fracture identified. No spondylolisthesis. Preservation of the normal thoracic kyphosis. No significant facet arthropathy. DISC SPACES: Unremarkable. Disc spaces are maintained. RAD/Thoracic Spine 2 Views IMPRESSION: Stable exam. No acute findings. Electronically Signed: Beatriz Rodriguez MD at 0:59 EDT ,
[2023-04-17 00:21] LABS: Mucous, Urine 0 SEEN /hpf (<or=2+); Red Blood Cells-Urine 0 SEEN /hpf (0-5); Squamous Epithelial Cells - UA 0 SEEN /hpf (0-5)
[2023-04-17 00:22] LABS: Color, Urine Yellow (Yellow); Glucose, Dipstick Normal (Normal); Ketone-Dipstick 5 mg/dl (Negative); Leukocyte Esterase-Dipstick Negative /ul (Negative); Nitrite-Dipstick Negative (Negative); Occult Blood-Urine 25 /ul (Negative); Protein-Dipstick 15 mg/dl (Negative); Urine Bilirubin Dipstick Negative (Negative); Urine Clarity Clear (Clear); Urine Urobilinogen 1 mg/dl (Normal)
[2023-04-17 00:40] LABS: Bacteria RARE /hpf (None Seen); White Blood Cells 0-5 SEEN /hpf (0-5)
[2023-04-17 01:29] VITALS: BP 159/79; PULSE 87; RESP 17; O2SAT 95
--- NOTE | 2023-04-17 02:17 | PCM.HP.STD ---
HPI - General General Date of Admission: 04/17/23 Date of Service: 04/17/23 Chief Complaint: multiple falls HPI Narrative ANDREW BLANC, is a 82 M with a significant history of Parkinson disease and pulmonary embolism who presents to the emergency department with multiple falls. On 04/15/2023 patient presented to the emergency department with multiple falls. He did not want to be admitted at that time. He was discharged home. On the day of presentation patient had episodes of 2 falls. Subsequently the squad brought him to the emergency department. Reportedly family and PCP has been trying to get him a place to go for assisted living. With his multiple falls discussion was made with him for him to stay at the hospital to make the process of going to an assisted nursing facility more easier. [facility] Medical History Arthritis Cancer Cataracts, bilateral Gastric reflux GERD (gastroesophageal reflux disease) History of diverticulitis History of stress test Hx of blood clots Hypertension Kidney disease Parkinson disease Prostate disorder Pulmonary embolism Smoker Syncope Wears dentures Wears glasses Home Medications apixaban 5 mg tablet (Eliquis) 5 mg PO BID Blood thinner 12/08/16 [History Last Taken 04/16/23] alprazolam 0.5 mg tablet 0.5 mg PO 4X/DAY 7 days #28 tabs 05/18/21 [Rx Last Taken 04/16/23] doxepin 10 mg capsule 10 mg PO QHS 02/18/22 [History Last Taken Unknown] cholecalciferol (vitamin D3) 1,250 mcg (50,000 unit) capsule 1,250 mcg PO QWEEK #4 caps 01/16/23 [Rx Last Taken 04/16/23] hydrocodone-acetaminophen 5-325mg 5mg-325mg 1 tab PO Q6H PRN PRN Pain 3 days #10 TABLETS 02/24/23 [Rx Last Taken Unknown] carbidopa 25 mg-levodopa 100 mg tablet 2 tab PO TID #180 tabs 03/27/23 [Rx Last Taken 04/16/23] fludrocortisone 0.1 mg tablet See Rx Instructions .Route .COMPLEX #20 tabs 03/27/23 [Rx Last Taken 04/15/23] sertraline 50 mg tablet 50 mg PO DAILY #30 tabs 03/27/23 [Rx Last Taken 04/15/23] tamsulosin 0.4 mg capsule (Flomax) 0.4 mg PO DAILY #30 caps 04/14/23 [Rx Last Taken Unknown] amlodipine 5 mg tablet 5 mg PO DAILY 04/17/23 [History Last Taken 04/16/23] baclofen 10 mg tablet 10 mg PO QHS musle 04/17/23 [History Last Taken 04/16/23] Allergy/AdvReac Type Severity Reaction Status Date / Time prednisone Allergy Severe Other Verified 04/15/23 03:07 Family History Father CVA (cerebral vascular accident) Surgical History H/O rotator cuff surgery History of adenoidectomy History of appendectomy History of tonsillectomy Hx of cystoscopy Hx of facial fracture repair Social History household members: none Smoking Status: Former smoker Tobacco: How many years used: 25 Electronic Cigarette Use: not used how long ago did patient quit smoking: quit in 1988 second hand exposure: No alcohol intake: former details: 1988 substance use type: does not use ROS ROS Narrative Pertinent positives and pertinent negatives as noted in HPI. All other systems were reviewed and are negative Vital Signs Vital Signs Vital Signs: 04/16/23 22:39 04/16/23 22:44 04/17/23 01:29 Temperature 97.8 F Temperature Source Oral Pulse Rate 99 87 Respiratory Rate 16 17 Respiratory Effort Normal Non-Labored Blood Pressure 177/85 H 159/79 H Blood Pressure Mean 115 105 Pulse Ox 98 95 Oxygen Delivery Method Room Air Room Air Weight Weight: 68.175 kg Body Mass Index (BMI) 25.0 Physical Exam Narrative Physical exam: General: Well-nourished, well-developed. Head: Normocephalic, atraumatic, no tenderness Eyes: Vision is grossly intact. EOMI ENT, no trauma, moist mucous membranes, no rhinorrhea Neck: Nontender, No thyromegaly. CVS: Regular rate and rhythm. S1-S2 present. No murmur, gallop or rub. Respiratory : clear to auscultation bilaterally, chest wall nontender Abdomen: Soft, nontender, nondistended, normal bowel sounds, no masses : Deferred Back: Nontender, no CVA tenderness, no midline spinal tenderness. Extremities: Nontender full range of motion, no trauma Skin: Ecchymosis and laceration on bilateral elbows and bilateral knees. Normal color. Neuro: Alert, oriented, cranial nerves II through XII grossly intact. Psychiatry: Normal mood. Normal affect. Not depressed. Not anxious. Results Lab / Micro Data 04/16/23 23:30 04/16/23 23:30 Labs: Laboratory Results - last 24 hr 04/16/23 23:30: WBC 15.2 H, RBC 4.39 L, Hgb 13.8, Hct 40.6, MCV 92.5, MCH 31.4, MCHC 34.0, RDW Std Deviation 43.8, RDW Coeff of Maritza 13.0, Plt Count 272, MPV 8.8, Immature Gran % (Auto) 0.800, Neut % (Auto) 78.8 H, Lymph % (Auto) 10.8 L, Bennett % (Auto) 9.1, Eos % (Auto) 0.1, Baso % (Auto) 0.4, Absolute Neuts (auto) 12.0 H, Absolute Lymphs (auto) 1.64, Nucleated RBC % 0, Sodium 134 L, Potassium 3.8, Chloride 100, Carbon Dioxide 25.0, Anion Gap 9, BUN 18, Creatinine 1.49 H, Estim Creat Clear Calc 33.82, Est GFR (MDRD) Af Amer 58 L, Est GFR (MDRD) Non-Af 48 L, BUN/Creatinine Ratio 12.1, Glucose 94, Calcium 9.2, Total Bilirubin 0.90, AST 44 H, ALT 16, Alkaline Phosphatase 94, Troponin I High Sens 50, Total Protein 7.9, Albumin 3.5, Globulin 4.4 H, Albumin/Globulin Ratio 0.8 L 04/17/23 00:15: Urine Color Yellow, Urine Clarity Clear, Urine pH 6.0, Ur Specific [place] 1.010, Urine Protein 15 H, Urine Glucose (UA) Normal, Urine Ketones 5 H, Urine Occult Blood 25 H, Urine Nitrite Negative, Urine Bilirubin Negative, Urine Urobilinogen 1 H, Ur Leukocyte Esterase Negative, Urine RBC 0 SEEN, Urine WBC 0-5 SEEN, Ur Squamous Epith Cells 0 SEEN, Urine Bacteria RARE, Urine Mucus 0 SEEN Rhythm Strip Rhythm Strip: Sinus Rhythm Rate: 95 Ectopy: None Radiology Impression Abdomen/Pelvis CT 04/16/23 22:54 IMPRESSION: 1. Change in location of renal stone on the left, a previously seen stone in the lower pole infundibulum is now in the nondilated left renal pelvis-UPJ, correlate with left flank pain. No alana hydronephrosis. 2. Similar mild fluid density or scarring, less likely infiltrative type neoplasm involving the posterior left kidney., Suspected scarring, similar to an older exam from March 10, 2022. Fairly [id number] stenosis of renal artery origins calcification, greater on the left. Best seen on coronal images. 3. Moderate distal diverticulosis, no evidence of acute diverticulitis. Cannot exclude very early or mild colitis, most of the colon is only minimally distended, but it is not convincing. 4. Moderate stool in the rectum. 5. Possibly mild gastroduodenitis. 6. Prostatomegaly. Electronically Signed: Beatriz Rodriguez MD at 1:32 EDT , Brain CT 04/16/23 22:54 IMPRESSION: No acute intracranial abnormality. Moderate chronic changes. Electronically Signed: Beatriz Rodriguez MD at 1:07 EDT , Cervical Spine CT 04/16/23 22:54 IMPRESSION: 1. No acute posttraumatic abnormality. Mild degenerative changes. Borderline-mild spinal stenosis. 2. Thyromegaly and streak artifacts the thyroid, heterogeneous appearance. Electronically Signed: Beatriz Rodriguez MD at 1:13 EDT , Thoracic Spine X-Ray 04/17/23 00:00 IMPRESSION: Stable exam. No acute findings. 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 PT and OT to work with patient. Case management consult. Florinef continued. Coumadin Polyvitamin continued. Decrease dose of Xanax Hypertension Blood pressure is not within goal Regimen continued.. Hydralazine ordered. Depression/anxiety Stable Sertraline continued. Time spent in the patient's overall evaluation,decision-making process, review of diagnostic data, adjustment of management, discussion with other providers, nursing nursing and ancillary staff involved in patient's care documentation, 44 minutes. Charges/Coding Visit Charges Inpatient E&M: 09509 Init Hosp L2
[2023-04-17 02:20] VITALS: BP 156/72; PULSE 85; RESP 18; TEMP 36.3; O2SAT 98
[2023-04-17 03:28] VITALS: BMI 24.2
[2023-04-17 03:39] VITALS: BP 177/84; PULSE 86; RESP 18; TEMP 36.8; O2SAT 98
[2023-04-17 06:02] VITALS: BP 143/63; PULSE 85; RESP 20; TEMP 36.9; O2SAT 97
[2023-04-17] MEDS: Carbidopa/Levodopa 25/100 Tablet PO ×3 (06:03→16:52)
[2023-04-17] MEDS: ALPRAZolam 0.25 MG Tablet PO ×3 (06:03→16:52)
[2023-04-17 06:57] LABS: Absolute Lymphocyte Count 2.24 X10^3/uL (0.83-4.51); Absolute Neutrophil Count 6.8 X10^3/uL (2.0-7.7); Basophil# 0.04 X10^3/uL; Basophil% 0.4 % (0-1); Eosinophil# 0.06 X10^3/uL; Eosinophils% 0.6 % (0-5); Hematocrit 38.2 % (40-54); Lymphocyte # 2.24 X10^3/ul (0.83-4.51); Lymphocyte % 22.1 % (19-41); Mean Corpuscular Hgb 31.5 pg (27.0-32.0); Mean Corpuscular Volume 92.5 fL (80-94); Mean Platelet Vol. 8.7 fl (6.2-12.0); Monocyte# 0.96 X10^3/uL; Monocyte% 9.5 % (0-10); NRBC Flagged by Analyzer 0 % (0-5); Neutrophil # 6.81 X10^3/uL (2.7-7.7); Platelet Count 259 K/mm3 (150-450); RBC Distribution Width CV 13.3 % (11.6-14.6); RBC Distribution Width SD 45.1 fl (35.1-43.9); Red Blood Count 4.13 M/mm3 (4.6-6.2); White Blood Count 10.2 K/mm3 (4.4-11.0)
[2023-04-17 07:19] LABS: Anion Gap 8 (5-15); BUN 17 mg/dL (7-18); BUN/Creat Ratio 13.7 RATIO (10-20); Calcium,Total 8.9 mg/dL (8.5-10.1); Chloride 102 mmol/L (98-107); Creatinine, Serum 1.24 mg/dL (0.70-1.30); EST Glomerular Filtration Rate 59 mL/min (>60); Est Glom Filt Rate - Afr Amer 72 mL/min (>60); Estimated Creatinine Clearance 40.64 ml/min; Glucose 87 mg/dL (74-106); Potassium 3.5 mmol/L (3.5-5.1); Sodium Level 136 mmol/L (136-145)
[2023-04-17 08:13] VITALS: O2SAT 93
[2023-04-17] MEDS: Fludrocortisone Acetate 0.1 MG Tablet PO (09:45)
[2023-04-17] MEDS: Sertraline 50 MG Tablet PO (09:45)
[2023-04-17] MEDS: Tamsulosin HCl 0.4 MG Capsule PO (09:45)
[2023-04-17] MEDS: amLODIPine 5 MG Tablet PO (09:45)
[2023-04-17] MEDS: APIXABAN 5 MG TABLET PO (09:46)
[2023-04-17 10:00] VITALS: BP 151/77; PULSE 84; RESP 18; TEMP 36.7; O2SAT 98
--- NOTE | 2023-04-17 11:00 | CASEMGMT ---
Discharge Planning SNF and Acute Rehab lists created and given to SW. Elsa Salvador, Discharge Planning Asst.
--- NOTE | 2023-04-17 11:05 | CASEMGMT ---
Therapy made RN SARITA aware that pt thought he had an appt with this date. TC to 's office, spoke with Joyce, she is aware pt is hospitalized and appt cancelled.
--- NOTE | 2023-04-17 12:01 | CASEMGMT ---
Discharge Planning Referral sent to [facility], [facility], and [facility] via [facility]. Call also placed to [facility] to check on status of [place] admission. Msg left for Jennie. Elsa Salvador, Discharge Planning Asst.
--- NOTE | 2023-04-17 12:08 | CASEMGMT ---
Social Work Pt states he has a living will and a health care POA which names his daughter Laura King. Pt and sister updated that documents are not on file at [facility] and requested they be brought in for scanning into the medical record. YANIRA Bonilla
--- NOTE | 2023-04-17 12:09 | CASEMGMT ---
Social Work SW to room to meet with patient for initial transition planning/care coordination?assessment.?SW?introduced self and role at [facility].? Pt voices understanding and consents to?assessment?with pt sister Debbie Jay in room with pt .? Pt resting in chair in no distress.? Pt is A/O at this time but forgetful. Care providers, pharmacy, and demographics verified/updated at this time. PCP: [facility] Specialists: Handy, neurology Preferred Pharmacy: [facility] Insurance: Medicare? Living Will/HPOA:?Yes both. Pts dgt [employer] Christine is HCPOA. Notifed that documents are not on file at [facility] and requested they be brought in LNOK: Dgt [place], [place]. Son Cesar Mina, [place]. 2 local sisters Debbie Jay and Brenton Manjarrez Living Arrangements: Pt lives alone in a one story home with 1 step into home. Pt is Independent with bathing and dressing. Pt does not cook or clean. Pt orders take out and dgt has groceries delivered from [employer]. Transportation:?Pt no longer drives. ? DME: ?walker, wheelchair, shower chair? HHC/SNF: [facility] in 2020 Pt has been falling at home, multiple times in the last week. Pt states his daughter has been looking into getting him into [facility]. SW explained hospital observation status and that Medicare will not cover cost of SNF. SEBASTIAN spoke with pt and sister regarding possibility of Inpatient rehab due to Parkinson's vs private pay at SNF. A list of SNF and RU providers including quality and resource use data and consistent with the patient?s preferred geographic region, medical needs, and insurance network were provided from the [employer] [facility]. Pt uncertain what to do. With permission from pt, phone call to pt dgt and discharge options as listed above explained. Pt dgt [employer] states pt cannot return home as he is not safe. [facility] would prefer inpatient rehab, with no preference on facility. If pt is not accepted at then [facility] states pt is able to private pay at [facility]. SEBASTIAN met with pt and sister and updated on [employer]'s wishes. Pt is agreeable to follow dgts wishes. Pt with no preference of RU facility. [facility] has no beds available. Pt sister prefers 1. [facility] 2. [facility] 3. [facility]. Referrals to be made to Inpatient Rehab facilities. PLAN:??Inpatient Rehab, pending acceptance YANIRA Bonilla
--- NOTE | 2023-04-17 13:38 | DCINST_ITS ---
Discharge Instructions Diet Discharge Diet: No restrictions Activity Discharge Activity: - (Fall precautions) Follow Up Care Test Results: Test results from this visit will be discussed in further detail at your follow- up appointment, if applicable. Discharge Plan Admission Admit Date/Time: 04/17/23 02:20 Primary Reason for Your Visit: Falls Attending Provider: Sirisha Thomas Primary Care Provider: Roberto Mullen Chi Consulting Providers: Abhinav Pantoja Instructions Patient Instructions: ED Fall Prevention Additional Instructions / Restrictions: - Would recommend decreasing your Xanax over time and transitioning to a different medication to help with her dizziness and falls. Ultimately will defer this to her outpatient physician -Please change positions slowly from lying to standing. When getting out of bed sit on the side of the bed with her legs down for at least 30 seconds before standing. This gives her body time to adjust to the position change. Would also recommend using compression stockings, you can acquire these online or you can discuss with your primary care physician. There are varying strengths and if you are unable to tolerate high strength compression you can try one of the lower strength -Please call your primary care provider's office upon discharge to schedule a hospital follow up within 1 week. -For any concerning signs or symptoms please call 911 or proceed to the nearest emergency department Discharge Orders/Prescriptions Prescriptions: New alprazolam 0.25 mg Tablet 0.5 mg PO 4X/DAY PRN (Reason: Anxiety) Qty: 0 0RF Continued cholecalciferol (vitamin D3) 1,250 mcg (50,000 unit) capsule 1,250 mcg PO QWEEK Qty: 4 6RF fludrocortisone 0.1 mg tablet See Rx Instructions .ROUTE .COMPLEX Qty: 20 5RF Rx Instructions: 1 tablet po every Friday, Friday, Friday and (to be taken in the morning). sertraline 50 mg tablet 50 mg PO DAILY Qty: 30 5RF carbidopa-levodopa 25-100 mg tablet 2 tab PO TID Qty: 180 5RF Eliquis 5 MG tablet 5 mg PO BID Rx Instructions: will stop 2 days prior tamsulosin [Flomax] 0.4 mg capsule 0.4 mg PO DAILY Qty: 30 0RF amlodipine 5 mg tablet 5 mg PO DAILY Patient Comments: take 1 tablet by mouth once daily baclofen 10 mg tablet 10 mg PO QHS Patient Comments: take 1 tablet by mouth at bedtime Discontinued alprazolam 0.5 mg Tablet 0.5 mg PO 4X/DAY 7 Days Qty: 28 0RF doxepin 10 mg capsule 10 mg PO QHS Hold Instructions: MD Ordered Patient Comments: take 1 capsule by mouth once daily hydrocodone-acetaminophen [hydrocodone-acetaminophen] 5-325 mg tablet 1 tab PO Q6H PRN PRN (Reason: Pain) 3 Days Qty: 10 0RF Hold Instructions: MD Ordered Referrals / Follow Up: Roberto Mullen Chi, MD [Primary Care Provider] - Within 1 Week Disposition Disposition (needs filled in before D/C Order can be placed): Inpatient Rehab Unit/Facility
--- NOTE | 2023-04-17 13:45 | PCM.DC.SUM ---
Providers Date of Admission: 04/17/23 Date of Discharge: 04/17/23 Primary Care Physician: Dr. Roberto Mullen MD Reason For Visit: MULTIPLE FALLS Diagnosis Discharge Diagnosis (1) Multiple falls: Status: Acute Code(s): R29.6 - Repeated falls (2) HTN (hypertension): Status: Chronic Code(s): I10 - Essential (primary) hypertension Plan #multiple falls #orthostasis, autonomic instability #parkinsons dz #anxiety #htn Medications at Discharge Home Medications apixaban 5 mg tablet (Eliquis) 5 mg PO BID Blood thinner 12/08/16 cholecalciferol (vitamin D3) 1,250 mcg (50,000 unit) capsule 1,250 mcg PO QWEEK #4 caps 01/16/23 carbidopa 25 mg-levodopa 100 mg tablet 2 tab PO TID #180 tabs 03/27/23 fludrocortisone 0.1 mg tablet See Rx Instructions .Route .COMPLEX #20 tabs 03/27/23 sertraline 50 mg tablet 50 mg PO DAILY #30 tabs 03/27/23 tamsulosin 0.4 mg capsule (Flomax) 0.4 mg PO DAILY #30 caps 04/14/23 alprazolam 0.25 mg tablet 0.5 mg (2 x 0.25 mg) PO 4X/DAY PRN Anxiety #0 tabs 04/17/23 amlodipine 5 mg tablet 5 mg PO DAILY 04/17/23 baclofen 10 mg tablet 10 mg PO QHS musle 04/17/23 Hospital Course Summary of Care Provided Minutes Spent on Discharge: 31 Hospital Course: Per hpi: ANDREW BLANC, is a 82 M with a significant history of Parkinson disease and pulmonary embolism who presents to the emergency department with multiple falls. On 04/15/2023 patient presented to the emergency department with multiple falls. He did not want to be admitted at that time. He was discharged home. On the day of presentation patient had episodes of 2 falls. Subsequently the squad brought him to the emergency department. Reportedly family and PCP has been trying to get him a place to go for assisted living. With his multiple falls discussion was made with him for him to stay at the hospital to make the process of going to an assisted nursing facility more easier. INTERIM HISTORY: Patient was medically stable and was excepted to an inpatient rehab and he and family were agreeable. Patient discharged inpatient rehab in stable condition Weight / BMI Weight Weight: 65.998 kg Body Mass Index (BMI) 24.2 ABG / Lab / Microbiology Data 04/17/23 06:30 04/17/23 06:30 Laboratory: Laboratory Results - last 24 hr 04/16/23 23:30: WBC 15.2 H, RBC 4.39 L, Hgb 13.8, Hct 40.6, MCV 92.5, MCH 31.4, MCHC 34.0, RDW Std Deviation 43.8, RDW Coeff of Maritza 13.0, Plt Count 272, MPV 8.8, Immature Gran % (Auto) 0.800, Neut % (Auto) 78.8 H, Lymph % (Auto) 10.8 L, [place] % (Auto) 9.1, Eos % (Auto) 0.1, Baso % (Auto) 0.4, Absolute Neuts (auto) 12.0 H, Absolute Lymphs (auto) 1.64, Nucleated RBC % 0, Sodium 134 L, Potassium 3.8, Chloride 100, Carbon Dioxide 25.0, Anion Gap 9, BUN 18, Creatinine 1.49 H, Estim Creat Clear Calc 33.82, Est GFR (MDRD) Af Amer 58 L, Est GFR (MDRD) Non-Af 48 L, BUN/Creatinine Ratio 12.1, Glucose 94, Calcium 9.2, Total Bilirubin 0.90, AST 44 H, ALT 16, Alkaline Phosphatase 94, Troponin I High Sens 50, Total Protein 7.9, Albumin 3.5, Globulin 4.4 H, Albumin/Globulin Ratio 0.8 L 04/17/23 00:15: Urine Color Yellow, Urine Clarity Clear, Urine pH 6.0, Ur Specific [place] 1.010, Urine Protein 15 H, Urine Glucose (UA) Normal, Urine Ketones 5 H, Urine Occult Blood 25 H, Urine Nitrite Negative, Urine Bilirubin Negative, Urine Urobilinogen 1 H, Ur Leukocyte Esterase Negative, Urine RBC 0 SEEN, Urine WBC 0-5 SEEN, Ur Squamous Epith Cells 0 SEEN, Urine Bacteria RARE, Urine Mucus 0 SEEN 04/17/23 06:30: WBC 10.2, RBC 4.13 L, Hgb 13.0, Hct 38.2 L, MCV 92.5, MCH 31.5, MCHC 34.0, RDW Std Deviation 45.1 H, RDW Coeff of Maritza 13.3, Plt Count 259, MPV 8.7, Immature Gran % (Auto) 0.400, Neut % (Auto) 67.0, Lymph % (Auto) 22.1, Coles % (Auto) 9.5, Eos % (Auto) 0.6, Baso % (Auto) 0.4, Absolute Neuts (auto) 6.8, Absolute Lymphs (auto) 2.24, Nucleated RBC % 0, Sodium 136, Potassium 3.5, Chloride 102, Carbon Dioxide 26.0, Anion Gap 8, BUN 17, Creatinine 1.24, Estim Creat Clear Calc 40.64, Est GFR (MDRD) Af Amer 72, Est GFR (MDRD) Non-Af 59 L, BUN/Creatinine Ratio 13.7, Glucose 87, Calcium 8.9 Radiography Diagnostic Testing: Radiology Impression Abdomen/Pelvis CT 04/16/23 22:54 IMPRESSION: 1. Change in location of renal stone on the left, a previously seen stone in the lower pole infundibulum is now in the nondilated left renal pelvis-UPJ, correlate with left flank pain. No alana hydronephrosis. 2. Similar mild fluid density or scarring, less likely infiltrative type neoplasm involving the posterior left kidney., Suspected scarring, similar to an older exam from March 10, 2022. Fairly [id number]-[id number] stenosis of renal artery origins calcification, greater on the left. Best seen on coronal images. 3. Moderate distal diverticulosis, no evidence of acute diverticulitis. Cannot exclude very early or mild colitis, most of the colon is only minimally distended, but it is not convincing. 4. Moderate stool in the rectum. 5. Possibly mild gastroduodenitis. 6. Prostatomegaly. Electronically Signed: Beatriz Rodriguez MD at 1:32 EDT , Brain CT 04/16/23 22:54 IMPRESSION: No acute intracranial abnormality. Moderate chronic changes. Electronically Signed: Beatriz Rodriguez MD at 1:07 EDT , Cervical Spine CT 04/16/23 22:54 IMPRESSION: 1. No acute posttraumatic abnormality. Mild degenerative changes. Borderline-mild spinal stenosis. 2. Thyromegaly and streak artifacts the thyroid, heterogeneous appearance. Electronically Signed: Beatriz Rodriguez MD at 1:13 EDT , Thoracic Spine X-Ray 04/17/23 00:00 IMPRESSION: Stable exam. No acute findings. Electronically Signed: Beatriz Rodriguez MD at 0:59 EDT , D/C Instructions Discharge Diet: No restrictions Meaningful Use Info Meaningful Use Diagnoses (Choose all that apply): None applicable Discharge Plan Admission Admit Date/Time: 04/17/23 02:20 Primary Reason for Your Visit: Falls Attending Provider: Sirisha Thomas Primary Care Provider: Roberto Mullen Chi Consulting Providers: Abhinav Pantoja Instructions Patient Instructions: ED Fall Prevention Additional Instructions / Restrictions: - Would recommend decreasing your Xanax over time and transitioning to a different medication to help with her dizziness and falls. Ultimately will defer this to her outpatient physician -Please change positions slowly from lying to standing. When getting out of bed sit on the side of the bed with her legs down for at least 30 seconds before standing. This gives her body time to adjust to the position change. Would also recommend using compression stockings, you can acquire these online or you can discuss with your primary care physician. There are varying strengths and if you are unable to tolerate high strength compression you can try one of the lower strength -Please call your primary care provider's office upon discharge to schedule a hospital follow up within 1 week. -For any concerning signs or symptoms please call 911 or proceed to the nearest emergency department Discharge Orders/Prescriptions Prescriptions: New alprazolam 0.25 mg Tablet 0.5 mg PO 4X/DAY PRN (Reason: Anxiety) Qty: 0 0RF Continued cholecalciferol (vitamin D3) 1,250 mcg (50,000 unit) capsule 1,250 mcg PO QWEEK Qty: 4 6RF fludrocortisone 0.1 mg tablet See Rx Instructions .ROUTE .COMPLEX Qty: 20 5RF Rx Instructions: 1 tablet po every Friday, Friday, Friday and (to be taken in the morning). sertraline 50 mg tablet 50 mg PO DAILY Qty: 30 5RF carbidopa-levodopa 25-100 mg tablet 2 tab PO TID Qty: 180 5RF Eliquis 5 MG tablet 5 mg PO BID Rx Instructions: will stop 2 days prior tamsulosin [Flomax] 0.4 mg capsule 0.4 mg PO DAILY Qty: 30 0RF amlodipine 5 mg tablet 5 mg PO DAILY Patient Comments: take 1 tablet by mouth once daily baclofen 10 mg tablet 10 mg PO QHS Patient Comments: take 1 tablet by mouth at bedtime Discontinued alprazolam 0.5 mg Tablet 0.5 mg PO 4X/DAY 7 Days Qty: 28 0RF doxepin 10 mg capsule 10 mg PO QHS Hold Instructions: MD Ordered Patient Comments: take 1 capsule by mouth once daily hydrocodone-acetaminophen [hydrocodone-acetaminophen] 5-325 mg tablet 1 tab PO Q6H PRN PRN (Reason: Pain) 3 Days Qty: 10 0RF Hold Instructions: Ordered Referrals / Follow Up: Roberto Mullen Chi, MD [Primary Care Provider] - Within 1 Week Disposition Disposition (needs filled in before D/C Order can be placed): Inpatient Rehab Unit/Facility
--- NOTE | 2023-04-17 14:49 | CASEMGMT ---
Discharge Planning [facility] and family would like to proceed. [facility] notified they are foc. lEsa Salvador, Discharge Planning Asst.
--- NOTE | 2023-04-17 15:23 | CHAPLAIN ---
Type of Pastoral Visit _x__ Initial Visit ___ Follow-up Visit ___ On-call Visit ___ General Patient Visit ___ Spiritual Assessment ___ Family Conference ___ Bereavement ___ Rapid Response ___ Code Blue ___ Other (describe below) Pastoral Care Referral From _x__ Patient _x__ Family ___ Nurse ___ Physician ___ Sheet Metal Former ___ Lens Grinder Rough ___ Other (describe below) Sacrament/Intervention _x__ Active listening ___ Anointing ___ Spiritism ___ Bereavement ___ Communion _x__ Vanesa exploration ___ _x__ Life review _x__ Prayer ___ Reconciliation ___ Sacrament of Sick _x__ Supportive presence ___ Wedding ___ Other (describe below) Pastoral Comments long conversation with patient about his 'complicating situation' and being 'overwhelmed'; family members are in the room for part of the discussion; pt admits to feelings of frustration with his medical condition and insurance requirements; discussion focuses on how to manage his feelings and focusing on the positives; pt has a belief in God but has lapsed in active latter day practices; pt speaks of some regrets in life and reflected on how to deal with these feelings at this point; pt welcomes presence and prayer of this cat scan tech for spiritual and emotional care
--- NOTE | 2023-04-17 15:40 | CASEMGMT ---
Social Work Pt has been accepted at [facility]. Physician notified and pt is ready for discharge today. SW updated pt and he is agreeable to discharge. VM left for pt dgt Laura King and updated on discharge plan. Transportation arranged with [facility] for 4pm roll picker via wheelchair van. RN updated. Discharge orders sent to [place]. Disposition: [facility] YANIRA Bonilla
--- NOTE | 2023-04-17 15:43 | CASEMGMT ---
Discharge Planning Discharge Summary/Instructions sent to [facility] via [facility]. [facility] will transport patient by wc at 4p. Patient, his daughter, SW, and nursing all notified. Elsa Salvador, Discharge Planning Asst.
== END 2023-04-17 17:02 ==
LOC: ED 04-17 01:45 → MS3 04-17 02:44
PROVIDERS: Admitting Provider Hospitalist; Emergency Provider Emergency Medicine; PCP Family Medicine Geriatric Medicine; Visit Provider Internal Medicine
DX: R29.6 Repeated falls (principal); G20 Parkinson's disease; I12.9 Hypertensive chronic kidney disease with stage 1 through stage 4 chronic kidney disease, or unspecified chronic kidney disease; R51.9 Headache, unspecified; S16.1XXA Strain of muscle, fascia and tendon at neck level, initial encounter; S29.019A Strain of muscle and tendon of unspecified wall of thorax, initial encounter; R42 Dizziness and giddiness; N18.9 Chronic kidney disease, unspecified; Z79.01 Long term (current) use of anticoagulants; S50.311A Abrasion of right elbow, initial encounter; Z87.891 Personal history of nicotine dependence; W19.XXXA Unspecified fall, initial encounter; Z79.899 Other long term (current) drug therapy; K21.9 Gastro-esophageal reflux disease without esophagitis; Z86.718 Personal history of other venous thrombosis and embolism; F41.9 Anxiety disorder, unspecified; F32.A Depression, unspecified
CPT/HCPCS: 96360 ×2; 36415; 70450; 72070; 72125; 74177; 80048; 80053; 81001; 84484; 85025; 93005; 96361; 97162; 97166; 99221; 99285; J7030; Q9967; A4216; G0378

== ENCOUNTER 2023-05-26 17:27 | Emergency (ER) | payer MEDICARE, OTHER, SELFPAY ==
[2023-05-26 17:28] VITALS: BP 122/62; PULSE 82; RESP 18; TEMP 35.9; O2SAT 100; BMI 24.0
--- NOTE | 2023-05-26 17:38 | EKG12_ITS ---
Test Reason : FALL Blood Pressure : / mmHG Vent. Rate : 078 BPM Atrial Rate : 078 BPM P-R Int : 152 ms QRS Dur : 128 ms QT Int : 456 ms P-R-T Axes : 007 -07 010 degrees QTc Int : 519 ms Normal sinus rhythm Right bundle branch block Abnormal ECG Confirmed by PEGGY LUIS ([id number]), order editor SAMINA ANGEL ([id number]) on 06/06/2023 2:08:48 PM Referred By: Confirmed By:PEGGY LUIS
--- NOTE | 2023-05-26 17:39 | ED.VIS.FALL ---
HPI HPI - Fall History of Present Illness Chief Complaint: Fall Informant: patient and EMS Narrative Narrative: 82-year-old with Parkinson's in assisted living with a longstanding history of falls, used to use a walker but had too many falls now he is wheelchair-bound, states he is mostly in his room and does not drink fluids well. He was unwitnessed when he transition to the toilet, to sit and urinate without difficulty, and then remembers waking up on the floor as if he passed out and woke up next to the toilet on the floor. He denies any pain like he had injured anything. He is sent to the hospital for that reason. EMS states that when they got there, nursing had talked about him having some brief muscle spasms as he was coming to and thought maybe he was having a seizure, EMS did not witness any seizure activity. He has been at baseline mental status since they have been there initial blood pressure was in the 90s, now 122/62. Patient denies any recent illness. Denies any prodromal symptoms, no shortness of breath, palpitations, chest discomfort. Patient states when he woke up he did not have any pain or headache. He states he had a mild headache because of EMS taking him out of the facility, according to him. Staff gave him a dose of alprazolam before transport got him, because of his anxiety. Patient states his headache is gone and he feels much better now since EMS was very nice. [facility] Medical History Arthritis Cancer Cataracts, bilateral Gastric reflux GERD (gastroesophageal reflux disease) History of diverticulitis History of stress test Hx of blood clots Hypertension Kidney disease Parkinson disease Prostate disorder Pulmonary embolism Smoker Syncope Wears dentures Wears glasses Home Medications apixaban 5 mg tablet (Eliquis) 5 mg PO BID Blood thinner 12/08/16 [History Last Taken 04/16/23] cholecalciferol (vitamin D3) 1,250 mcg (50,000 unit) capsule 1,250 mcg PO QWEEK #4 caps 01/16/23 [Rx Last Taken 04/16/23] carbidopa 25 mg-levodopa 100 mg tablet 2 tab PO TID #180 tabs 03/27/23 [Rx Last Taken 04/16/23] sertraline 50 mg tablet 50 mg PO DAILY #30 tabs 03/27/23 [Rx Last Taken 04/15/23] tamsulosin 0.4 mg capsule (Flomax) 0.4 mg PO DAILY #30 caps 04/14/23 [Rx Last Taken Unknown] alprazolam 0.25 mg tablet 0.5 mg (2 x 0.25 mg) PO 4X/DAY PRN Anxiety #0 tabs 04/17/23 [Rx Last Taken Unknown] amlodipine 5 mg tablet 5 mg PO DAILY 04/17/23 [History Last Taken 04/16/23] baclofen 10 mg tablet 10 mg PO QHS musle 04/17/23 [History Last Taken 04/16/23] fludrocortisone 0.1 mg tablet 0.1 mg PO QAM #30 tabs 05/26/23 [Rx Last Taken Unknown] Allergy/AdvReac Type Severity Reaction Status Date / Time prednisone Allergy Severe Other Verified 04/15/23 03:07 Family History Father CVA (cerebral vascular accident) Surgical History H/O rotator cuff surgery History of adenoidectomy History of appendectomy History of tonsillectomy Hx of cystoscopy Hx of facial fracture repair Social History household members: none Smoking Status: Former smoker Tobacco: How many years used: 25 Electronic Cigarette Use: not used how long ago did patient quit smoking: quit in 1988 second hand exposure: No alcohol intake: former details: 1988 substance use type: does not use ROS ROS ED Constitutional Constitutional ED: Denies chills or fever(s) Eyes Eyes: Denies change in vision or diplopia ENT ENT ED: Denies rhinorrhea or sore throat Cardiovascular Cardiovascular: Reports as per HPI and syncope; Denies chest pain or palpitations Respiratory/Chest Respiratory/Chest: Denies cough or dyspnea Gastrointestinal Gastrointestinal: Denies abdominal pain, diarrhea, nausea or vomiting Genitourinary Genitourinary ED: Denies dysuria or hematuria Musculoskeletal Musculoskeletal: Denies back pain or neck pain Integumentary Denies abscess or rash Neurologic Neurologic: Denies headache(s), paresthesias or weakness Psychiatric Psychiatric: Denies anxiety or suicidal thoughts EXAM Physical Exam Const Vital Signs: 05/26/23 17:28 05/26/23 17:31 05/26/23 18:08 Temperature 96.7 F L Temperature Source Temporal Pulse Rate 82 80 Respiratory Rate 18 18 Respiratory Effort Normal Blood Pressure 122/62 H 154/63 H Blood Pressure Mean 82 93 Pulse Ox 100 Oxygen Delivery Method Room Air Positive well nourished and well developed General Appearance ED: well developed and NAD HEENT Reports TM's normal bilaterally and moist mucous membranes HEENT Narrative: No CSF otorhinorrhea. No arcos sign. No raccoon eyes. No facial tenderness. normocephalic and atraumatic Eyes PERRL and EOMs intact bilaterally Neck full ROM and supple Chest Wall inspection of chest normal and palpation of chest normal Resp normal respiratory effort and clear to auscultation bilaterally Cardio regular rate, regular rhythm and no murmurs GI non-tender and non-distended Auscultation: normoactive bowel sounds Palpation: soft Back/Spine no CVA tenderness General Back: other FROM Extremity normal to inspection Extremity Narrative: There is mild tenderness at the mid right scapular spine, patient states this is a chronic pain that is no different now, he can abduct both upper arms/shoulders without any difficulty or pain, and there are no signs of acute trauma to the mildly tender area. Other than that, all joints ranged without pain of all 4 extremities, he has some minor skin tears on the right dorsal forearm and the left hand both of which have been there for 3 days and do not appear infected or acute. General Extremety ED: Negative for edema, pulses abnormal or tenderness General Extremity: Negative for edema or pulses abnormal Neuro oriented x3, CN's II-XII intact bilaterally and no sensory deficits noted Sensorium / Orientation: awake and alert Motor Exam: strength 5/5 throughout Psych mental status grossly normal and thought process normal Psych Narrative: Mentating normally and recognizes the examiner since he has been in the ER and seen me before. Skin no rashes or lesions noted Skin Narrative: Skin tears upper arm see above. Nothing acute. MDM MDM MDM Narrative Medical decision making narrative: I suspect patient had a syncopal episode while he was urinating likely related to a vagal episode, this may have been sensitized due to the fact that he could easily be dehydrated. He does not have any signs of an acute injury, no sign of hitting his head at all, he takes no anticoagulants, and he will be observed I do not think he needs a head scan. (Of note, Ni is on his medication list from prior visits here, but is not on his current medication list from assisted living.) In the meantime we will run some basic labs evaluate his renal function and electrolytes and give him some gentle IV fluids in the meantime. Labs noted. His creatinine is a little elevated, I reviewed his old labs for comparison, no indication for admission or further studies at this time, after the fluids he is doing well and stable for discharge back. History & Record Review Additional record(s) reviewed:: Prior labs Lab Data Attestation: I reviewed the patient's lab results. Labs: Laboratory Results - last 24 hr 05/26/23 17:40 WBC 7.7 RBC 3.72 L Hgb 10.1 L Hct 31.6 L MCV 84.9 MCH 27.2 MCHC 32.0 RDW Std Deviation 51.2 H RDW Coeff of Maritza 16.3 H Plt Count 311 MPV 8.6 Immature Gran % (Auto) 0.300 Neut % (Auto) 65.9 Lymph % (Auto) 21.5 [place] % (Auto) 10.0 Eos % (Auto) 1.4 Baso % (Auto) 0.9 Absolute Neuts (auto) 5.1 Absolute Lymphs (auto) 1.65 Nucleated RBC % 0 Sodium 139 Potassium 3.8 Chloride 105 Carbon Dioxide 26.0 Anion Gap 8 BUN 14 Creatinine 1.86 H Estim Creat Clear Calc 27.09 Est GFR (MDRD) Af Amer 45 L Est GFR (MDRD) Non-Af 37 L BUN/Creatinine Ratio 7.5 L Glucose 122 H Calcium 8.9 Rhythm Strip Rhythm Strip: Sinus Rhythm Ectopy: None EKG Initial EKG: Attestation: I personally reviewed and interpreted this EKG as follows: Interpretation: Sinus Rhythm, No Acute Injury Pattern and RBBB Prior EKG tracings: available for review Prior: Unchanged Discharge Plan Triage Chief Complaint: Fall Other Complaint: Syncope ED Provider: Delfino Cloud Dx/Rx/DC Orders Clinical Impression: Vasovagal syncope, Mild dehydration, Acute on chronic renal insufficiency Instructions: ED Fainting, Vagal Reaction Prescriptions: No Action cholecalciferol (vitamin D3) 1,250 mcg (50,000 unit) capsule 1,250 mcg PO QWEEK Qty: 4 6RF sertraline 50 mg tablet 50 mg PO DAILY Qty: 30 5RF carbidopa-levodopa 25-100 mg tablet 2 tab PO TID Qty: 180 5RF Eliquis 5 MG tablet 5 mg PO BID Rx Instructions: will stop 2 days prior tamsulosin [Flomax] 0.4 mg capsule 0.4 mg PO DAILY Qty: 30 0RF amlodipine 5 mg tablet 5 mg PO DAILY Patient Comments: take 1 tablet by mouth once daily baclofen 10 mg tablet 10 mg PO QHS Patient Comments: take 1 tablet by mouth at bedtime alprazolam 0.25 mg Tablet 0.5 mg PO 4X/DAY PRN (Reason: Anxiety) Qty: 0 0RF fludrocortisone 0.1 mg tablet 0.1 mg PO QAM Qty: 30 5RF Primary Care Provider: Roberto Mullen Chi Referrals: Roberto Mullen Chi, MD [Primary Care Provider] - 1-2 Days if not improving Disposition Disposition: Assisted Living
[2023-05-26] MEDS: 0.9% Normal Saline 1,000 ML 500 ML IV (17:40)
[2023-05-26 17:56] LABS: Absolute Lymphocyte Count 1.65 X10^3/uL (0.83-4.51); Absolute Neutrophil Count 5.1 X10^3/uL (2.0-7.7); Basophil# 0.07 X10^3/uL; Basophil% 0.9 % (0-1); Eosinophil# 0.11 X10^3/uL; Eosinophils% 1.4 % (0-5); Hematocrit 31.6 % (40-54); Hemoglobin 10.1 g/dL (13.0-16.5); Lymphocyte # 1.65 X10^3/ul (0.83-4.51); Lymphocyte % 21.5 % (19-41); Mean Corpuscular Hgb 27.2 pg (27.0-32.0); Mean Corpuscular Volume 84.9 fL (80-94); Mean Platelet Vol. 8.6 fl (6.2-12.0); Monocyte# 0.77 X10^3/uL; NRBC Flagged by Analyzer 0 % (0-5); Neutrophil # 5.06 X10^3/uL (2.7-7.7); Neutrophil % 65.9 % (47-70); Platelet Count 311 K/mm3 (150-450); RBC Distribution Width CV 16.3 % (11.6-14.6); RBC Distribution Width SD 51.2 fl (35.1-43.9); Red Blood Count 3.72 M/mm3 (4.6-6.2); White Blood Count 7.7 K/mm3 (4.4-11.0)
[2023-05-26 18:07] LABS: Anion Gap 8 (5-15); BUN 14 mg/dL (7-18); BUN/Creat Ratio 7.5 RATIO (10-20); Calcium,Total 8.9 mg/dL (8.5-10.1); Chloride 105 mmol/L (98-107); Creatinine, Serum 1.86 mg/dL (0.70-1.30); EST Glomerular Filtration Rate 37 mL/min (>60); Est Glom Filt Rate - Afr Amer 45 mL/min (>60); Estimated Creatinine Clearance 27.09 ml/min; Glucose 122 mg/dL (74-106); Potassium 3.8 mmol/L (3.5-5.1); Sodium Level 139 mmol/L (136-145)
[2023-05-26 18:08] VITALS: BP 154/63; PULSE 80; RESP 18
[2023-05-26 19:31] VITALS: BP 171/66; PULSE 71; RESP 8
== END 2023-05-26 22:10 | disposition home or self-care (01) ==
PROVIDERS: Emergency Provider Emergency Medicine; PCP Family Medicine Geriatric Medicine; Visit Provider Emergency Medicine
DX: R55 Syncope and collapse (principal); G20 Parkinson's disease; E86.0 Dehydration; I10 Essential (primary) hypertension; Z87.891 Personal history of nicotine dependence; N28.9 Disorder of kidney and ureter, unspecified; Z79.899 Other long term (current) drug therapy; Z90.49 Acquired absence of other specified parts of digestive tract; F41.9 Anxiety disorder, unspecified
CPT/HCPCS: 80048; 85025; 93005; 96360; 96361; 99285; J7030

== ENCOUNTER 2023-06-24 18:33 | Emergency (ER) | payer MEDICARE, OTHER, SELFPAY ==
[2023-06-24 18:34] VITALS: PULSE 68; RESP 16; TEMP 36.1; O2SAT 99; BMI 22.4
--- NOTE | 2023-06-24 18:42 | CT_ITS ---
STUDY: CT BRAIN WITHOUT CONTRAST REASON FOR EXAM: Male, 82 years old. Trauma RADIATION DOSAGE (If Supplied By Facility): CTDIvol = ( 44.99 ) mGy, DLP = ( 829.85 ) mGycm TECHNIQUE: Transaxial CT imaging of the brain was performed without administration of intravenous contrast material. Individualized dose optimization techniques were used for this CT. COMPARISON: April 17, 2023 FINDINGS: Normal soft tissue structures. Normal calvarium. There is moderate cerebral atrophy with widening of the extra-axial spaces and ventricular dilatation. There are areas of decreased attenuation within the white matter tracts of the supratentorial brain, consistent with microvascular disease changes. Normal basal ganglia and thalami. Normal brainstem. Normal cerebellum. There is no intracranial hemorrhage. There are no findings of an acute ischemic infarction. Normal visualized paranasal sinuses. CT/Brain/Head without Contrast IMPRESSION: Chronic involutional changes of the brain. Electronically Signed: Delfino Hernandez MD at 19:52 EDT ,
--- NOTE | 2023-06-24 18:48 | ED.VIS.FALL ---
HPI HPI - Fall History of Present Illness Chief Complaint: Fall Informant: patient and EMS Narrative Narrative: Just prior to arrival this 82-year-old male with history of Parkinson's and prior episodes of orthostatic hypotension presenting after a fall. He remembers going to the bathroom to try to urinate, and he does not remember the fall itself. Per care home staff report they suspect he was orthostatic. The patient states he has not been drinking much in the way of fluids today, and he feels like he could use some fluids. He has been eating without difficulty. He states his head hurts where he hit it, and his left shoulder hurts and he denies pain or injury elsewhere. [facility] Medical History Arthritis Cancer Cataracts, bilateral Gastric reflux GERD (gastroesophageal reflux disease) History of diverticulitis History of stress test Hx of blood clots Hypertension Kidney disease Parkinson disease Prostate disorder Pulmonary embolism Smoker Syncope Wears dentures Wears glasses Home Medications cholecalciferol (vitamin D3) 1,250 mcg (50,000 unit) capsule 1,250 mcg PO QWEEK #4 caps 01/16/23 [Rx Last Taken 04/16/23] carbidopa 25 mg-levodopa 100 mg tablet 2 tab PO TID #180 tabs 03/27/23 [Rx Last Taken 04/16/23] sertraline 50 mg tablet 50 mg PO DAILY #30 tabs 03/27/23 [Rx Last Taken 04/15/23] tamsulosin 0.4 mg capsule (Flomax) 0.4 mg PO DAILY #30 caps 04/14/23 [Rx Last Taken Unknown] alprazolam 0.25 mg tablet 0.5 mg (2 x 0.25 mg) PO 4X/DAY PRN Anxiety #0 tabs 04/17/23 [Rx Last Taken Unknown] baclofen 10 mg tablet 10 mg PO QHS musle 04/17/23 [History Last Taken 04/16/23] fludrocortisone 0.1 mg tablet 0.1 mg PO QAM #30 tabs 05/26/23 [Rx Last Taken Unknown] midodrine 2.5 mg tablet 2.5 mg PO QAM #30 tabs 06/04/23 [Rx Last Taken Unknown] hydrocodone-acetaminophen 5-325mg 5mg-325mg 1 tab PO Q6H PRN PRN Pain 3 days #10 TABLETS 06/24/23 [Rx Last Taken Unknown] Allergy/AdvReac Type Severity Reaction Status Date / Time prednisone Allergy Severe Other Verified 04/15/23 03:07 Family History Father CVA (cerebral vascular accident) Surgical History H/O rotator cuff surgery History of adenoidectomy History of appendectomy History of tonsillectomy Hx of cystoscopy Hx of facial fracture repair Social History household members: none Smoking Status: Former smoker Tobacco: How many years used: 25 Electronic Cigarette Use: not used how long ago did patient quit smoking: quit in 1988 second hand exposure: No alcohol intake: former details: 1988 substance use type: does not use ROS ROS ED Constitutional Constitutional ED: Denies chills or fever(s) Eyes Eyes: Denies change in vision or diplopia ENT ENT ED: Reports dry mouth; Denies ear pain, epistaxis, facial pain or rhinorrhea Cardiovascular Cardiovascular: Denies chest pain or palpitations Respiratory/Chest Respiratory/Chest: Denies cough or dyspnea Gastrointestinal Gastrointestinal: Denies abdominal pain, diarrhea, melena, nausea or vomiting Genitourinary Genitourinary ED: Denies dysuria or hematuria Musculoskeletal Musculoskeletal: Reports extremity pain; Denies back pain or neck pain Integumentary Reports laceration; Denies abscess, Abrasions or rash Neurologic Neurologic: Reports headache(s); Denies confusion, paresthesias or weakness EXAM Physical Exam Const Vital Signs: 06/24/23 18:34 06/24/23 18:40 06/24/23 20:58 Temperature 97.0 F L Temperature Source Temporal Pulse Rate 68 74 Respiratory Rate 16 16 Respiratory Effort Normal Blood Pressure 166/64 H Blood Pressure Mean 98 Pulse Ox 99 99 Oxygen Delivery Method Room Air Room Air Positive well nourished and well developed General Appearance ED: well developed and NAD HEENT Reports TM's clear and nasal mucous membranes and turbinates normal HEENT Narrative: Partial-thickness 3 cm laceration high left parietal scalp with tenderness, no crepitance or depression or significant hematoma. No other signs of HEENT trauma. Bleeding well controlled. trauma and tenderness; Negative for hematoma Face and Sinus: Negative for facial tenderness Tympanic Membrane ED: Yes TM's clear Eyes PERRL and EOMs intact bilaterally Visual Acuity: other Other Details: no entrapment or pain with extraocular movements Neck full ROM and supple General: Negative for tenderness Chest Wall inspection of chest normal and palpation of chest normal Chest: symmetrical chest wall rise; Negative for crepitus or tenderness Resp normal respiratory effort and clear to auscultation bilaterally Percussion: other equal BS bilat Cardio no murmurs Rate: regular rate Rhythm: regular rhythm GI normal to inspection, nondistended, normoactive bowel sounds, soft to palpation and non-tender Back/Spine normal ROM Cervical Spine: Negative for cervical spine tenderness Thoracic Spine / Upper Back: Negative for thoracic spinal tenderness Lumbar Spine / Lower Back: Negative for lumbar spinal tenderness Extremity normal to inspection Extremity Narrative: Limited range of motion of the left shoulder, but able to move all other joints of all 4 extremities. Tenderness at the posterior aspect of the acromion and the scapular spine, less tender at the acromioclavicular joint, mildly tender proximal humerus. No deformities. Holding in EMS-made sling in position of comfort. No deformities or significant swelling or obvious signs of trauma. General Extremety ED: Yes tenderness Neuro oriented x3, CN's II-XII intact bilaterally, moves all extremities, no focal motor deficits and no sensory deficits noted Alexsander Coma Scale: document GCS findings Spontaneous Obeys Commands Oriented 15 Sensorium / Orientation: awake and alert Psych mental status grossly normal and thought process normal Skin Skin Narrative: 3 cm partial-thickness linear clean appearing laceration left eye parietal scalp otherwise no signs of wounds or other acute lacerations. Lesions: no lesions Rashes: no rashes MDM MDM MDM Narrative Medical decision making narrative: CT of the head was obtained in order to rule out intracranial injury, I reviewed the images and report which I agree with, negative for anything acute. Also obtained x-rays of the left shoulder, 3 views on my interpretation show a lateral clavicle fracture without involvement of the acromioclavicular joint. There is no tenting of the skin clinically. He is placed in a sling and given [facility] for pain, we also gave him IV fluids half liter, standing him up afterwards he was lightheaded and had to sit back down so we gave him more fluids. Subsequently, he is able to stand without orthostatic symptoms, plan will be to discharge him back. I had nursing discussed with assisted living, they are comfortable taking him back. Given appropriate follow-up for staple removal from scalp laceration and orthopedic follow-up regarding clavicle fracture which is not likely to be surgical. Lab Data Attestation: I reviewed the patient's lab results. Labs: Laboratory Results - last 24 hr 06/24/23 19:15 WBC 6.9 RBC 4.10 L Hgb 10.4 L Hct 34.6 L MCV 84.4 MCH 25.4 L MCHC 30.1 L RDW Std Deviation 51.0 H RDW Coeff of Maritza 16.6 H Plt Count 297 MPV 8.3 Immature Gran % (Auto) 0.300 Neut % (Auto) 63.8 Lymph % (Auto) 25.0 [place] % (Auto) 8.7 Eos % (Auto) 1.3 Baso % (Auto) 0.9 Absolute Neuts (auto) 4.4 Absolute Lymphs (auto) 1.72 Nucleated RBC % 0 Sodium 140 Potassium 3.7 Chloride 104 Carbon Dioxide 29.0 Anion Gap 7 BUN 16 Creatinine 1.58 H Estim Creat Clear Calc 31.74 Est GFR (MDRD) Af Amer 54 L Est GFR (MDRD) Non-Af 45 L BUN/Creatinine Ratio 10.1 Glucose 120 H Calcium 9.0 Radiography Diagnostic Testing: Clinical Impression(s) from Imaging Studies Brain CT 06/24/23 18:42 IMPRESSION: Chronic involutional changes of the brain. Electronically Signed: Delfino Hernandez MD at 19:52 EDT , Shoulder X-Ray 06/24/23 19:43 IMPRESSION: Distal clavicle fracture. Electronically Signed: Delfino Hernandez MD at 20:29 EDT , Rhythm Strip Rhythm Strip: Sinus Rhythm Rate: 75 Ectopy: None EKG Initial EKG: Attestation: I personally reviewed and interpreted this EKG as follows: Interpretation: Sinus Rhythm, No Acute Injury Pattern and RBBB Prior EKG tracings: available for review Prior: Unchanged Procedures Lacerations scalp: Length: 3 cm Depth: Skin Shape: Linear Prep: Sterile Conditions and Chlorhexadine (scrubbed) Laceration repair: Lidocaine with epi (1%, 3cc) and Local Number of Sutures/Spraggs: 3 (skin aurora) Discharge Plan Triage Chief Complaint: Fall ED Provider: Delfino Cloud Dx/Rx/DC Orders Clinical Impression: Orthostatic syncope, Closed head injury, Closed displaced fracture of lateral end of left clavicle, Laceration of scalp Instructions: ED Fracture, Clavicle, ED Laceration Scalp Stitches or Spraggs, ED Sling Prescriptions: New hydrocodone-acetaminophen [hydrocodone-acetaminophen] 5-325 mg tablet 1 tab PO Q6H PRN PRN (Reason: Pain) 3 Days Qty: 10 0RF No Action cholecalciferol (vitamin D3) 1,250 mcg (50,000 unit) capsule 1,250 mcg PO QWEEK Qty: 4 6RF sertraline 50 mg tablet 50 mg PO DAILY Qty: 30 5RF carbidopa-levodopa 25-100 mg tablet 2 tab PO TID Qty: 180 5RF midodrine 2.5 mg tablet 2.5 mg PO QAM Qty: 30 2RF tamsulosin [Flomax] 0.4 mg capsule 0.4 mg PO DAILY Qty: 30 0RF baclofen 10 mg tablet 10 mg PO QHS Patient Comments: take 1 tablet by mouth at bedtime alprazolam 0.25 mg Tablet 0.5 mg PO 4X/DAY PRN (Reason: Anxiety) Qty: 0 0RF fludrocortisone 0.1 mg tablet 0.1 mg PO QAM Qty: 30 5RF Primary Care Provider: Roberto Mullen Chi Referrals: Shimon Patel DO [Med Staff - Active Staff] - (call for follow up appt regarding collar bone fracture) Roberto Mullen Chi, MD [Primary Care Provider] - 5 Days for suture removal Disposition Disposition: Home, Self Care
[2023-06-24] MEDS: HYDROcodone Bitartrate/Apap 5/325 Tablet PO (19:14)
[2023-06-24] MEDS: 0.9% Normal Saline (500mL Bag) 500 ML 999 ML IV ×2 (19:14→20:55)
[2023-06-24] MEDS: Lidocaine/Epi/Tetracaine 50 ML 1 APPLIC TOPICAL (19:17)
[2023-06-24 19:23] LABS: Absolute Lymphocyte Count 1.72 X10^3/uL (0.83-4.51); Absolute Neutrophil Count 4.4 X10^3/uL (2.0-7.7); Basophil# 0.06 X10^3/uL; Basophil% 0.9 % (0-1); Eosinophil# 0.09 X10^3/uL; Eosinophils% 1.3 % (0-5); Hematocrit 34.6 % (40-54); Hemoglobin 10.4 g/dL (13.0-16.5); Lymphocyte # 1.72 X10^3/ul (0.83-4.51); Mean Corp Hgb Conc 30.1 g/dL (32-36); Mean Corpuscular Hgb 25.4 pg (27.0-32.0); Mean Corpuscular Volume 84.4 fL (80-94); Mean Platelet Vol. 8.3 fl (6.2-12.0); Monocyte% 8.7 % (0-10); NRBC Flagged by Analyzer 0 % (0-5); Neutrophil % 63.8 % (47-70); Platelet Count 297 K/mm3 (150-450); RBC Distribution Width CV 16.6 % (11.6-14.6); White Blood Count 6.9 K/mm3 (4.4-11.0)
[2023-06-24 19:38] LABS: Anion Gap 7 (5-15); BUN 16 mg/dL (7-18); BUN/Creat Ratio 10.1 RATIO (10-20); Chloride 104 mmol/L (98-107); Creatinine, Serum 1.58 mg/dL (0.70-1.30); EST Glomerular Filtration Rate 45 mL/min (>60); Est Glom Filt Rate - Afr Amer 54 mL/min (>60); Estimated Creatinine Clearance 31.74 ml/min; Glucose 120 mg/dL (74-106); Potassium 3.7 mmol/L (3.5-5.1); Sodium Level 140 mmol/L (136-145)
--- NOTE | 2023-06-24 19:43 | RAD_ITS ---
STUDY: X-RAY - LEFT SHOULDER REASON FOR EXAM: Male, 82 years old. Injury/fall TECHNIQUE: Frontal and lateral view(s) of the shoulder. There is poor positioning. COMPARISON: None. FINDINGS: Normal glenohumeral articulation. Normal acromioclavicular joint. There is distal clavicle fracture with 1.6 cm superior displacement of the proximal fragment. Normal acromion. Normal humeral head and visualized proximal humerus. The soft tissue structures are unremarkable. Normal visualized pulmonary apex. RAD/Shoulder min 2 Views IMPRESSION: Distal clavicle fracture. Electronically Signed: Delfino Hernandez MD at 20:29 EDT ,
[2023-06-24] MEDS: Lidocaine 1% /Epi 1:100 (20ml) 20 ML Vial INFILT (20:11)
[2023-06-24 20:58] VITALS: BP 166/64; PULSE 74; RESP 16; O2SAT 99
[2023-06-25 01:22] VITALS: BP 175/71; PULSE 83; RESP 18; O2SAT 98
== END 2023-06-25 01:28 | disposition home or self-care (01) ==
PROVIDERS: Emergency Provider Emergency Medicine; PCP Family Medicine Geriatric Medicine; Visit Provider Emergency Medicine
DX: S01.01XA Laceration without foreign body of scalp, initial encounter (principal); G20 Parkinson's disease; S42.032A Displaced fracture of lateral end of left clavicle, initial encounter for closed fracture; R55 Syncope and collapse; I10 Essential (primary) hypertension; Z87.891 Personal history of nicotine dependence; S09.8XXA Other specified injuries of head, initial encounter; W19.XXXA Unspecified fall, initial encounter; Y92.129 Unspecified place in nursing home as the place of occurrence of the external cause; Z85.9 Personal history of malignant neoplasm, unspecified; Z79.899 Other long term (current) drug therapy; Z90.49 Acquired absence of other specified parts of digestive tract
CPT/HCPCS: 12002; 70450; 73030; 80048; 85025; 93005; 96360; 96361; 99285; J7040; A4216

== ENCOUNTER → 2023-06-26 | Outpatient (CLI) | payer MEDICARE, OTHER, SELFPAY ==
[2023-06-26 15:04] LABS: Absolute Lymphocyte Count 1.38 X10^3/uL (0.83-4.51); Absolute Neutrophil Count 5.5 X10^3/uL (2.0-7.7); Basophil# 0.08 X10^3/uL; Eosinophil# 0.18 X10^3/uL; Eosinophils% 2.3 % (0-5); Hematocrit 32.7 % (40-54); Hemoglobin 9.9 g/dL (13.0-16.5); Lymphocyte # 1.38 X10^3/ul (0.83-4.51); Lymphocyte % 17.8 % (19-41); Mean Corp Hgb Conc 30.3 g/dL (32-36); Mean Corpuscular Hgb 25.6 pg (27.0-32.0); Mean Corpuscular Volume 84.5 fL (80-94); Mean Platelet Vol. 8.7 fl (6.2-12.0); Monocyte# 0.61 X10^3/uL; Monocyte% 7.9 % (0-10); NRBC Flagged by Analyzer 0 % (0-5); Neutrophil # 5.49 X10^3/uL (2.7-7.7); Neutrophil % 70.9 % (47-70); Platelet Count 297 K/mm3 (150-450); RBC Distribution Width CV 16.5 % (11.6-14.6); RBC Distribution Width SD 50.9 fl (35.1-43.9); Red Blood Count 3.87 M/mm3 (4.6-6.2); White Blood Count 7.8 K/mm3 (4.4-11.0)
[2023-06-26 15:36] LABS: Vitamin D,25 Hydroxy 22.8 ng/mL
[2023-06-26 15:42] LABS: ALB/GLOB Ratio 0.9 RATIO (0.9-2.4); AST(SGOT) 14 U/L (15-37); Alanine Aminotransfer ALT/SGPT 7 U/L (16-61); Albumin, Serum 3.3 g/dL (3.2-5.0); Alkaline Phosphatase 130 U/L (45-117); Anion Gap 4 (5-15); BUN 14 mg/dL (7-18); BUN/Creat Ratio 8.5 RATIO (10-20); Calcium,Total 8.9 mg/dL (8.5-10.1); Chloride 105 mmol/L (98-107); Creatinine, Serum 1.64 mg/dL (0.70-1.30); EST Glomerular Filtration Rate 43 mL/min (>60); Est Glom Filt Rate - Afr Amer 52 mL/min (>60); Globulin 3.7 g/dL (2.2-4.2); Glucose 146 mg/dL (74-106); Potassium 3.5 mmol/L (3.5-5.1); Sodium Level 138 mmol/L (136-145); Thyroid Stim Hormone (TSH) 0.07 uIU/mL (0.358-3.74)
== END | disposition home or self-care (01) ==
LOC: LAB 14:13
PROVIDERS: PCP Family Medicine Geriatric Medicine; Referring Provider Family Medicine Geriatric Medicine; Visit Provider Family Medicine Geriatric Medicine
DX: I10 Essential (primary) hypertension (principal); E55.9 Vitamin D deficiency, unspecified
CPT/HCPCS: 36415; 80053; 82306; 84443; 85025

== ENCOUNTER → 2023-07-15 | Outpatient (REF) | payer MEDICARE, OTHER, SELFPAY ==
[2023-07-15 08:54] LABS: Mucous, Urine 0 SEEN /hpf (<or=2+); Squamous Epithelial Cells - UA 0 SEEN /hpf (0-5)
[2023-07-15 09:02] LABS: Color, Urine Yellow (Yellow); Glucose, Dipstick Normal (Normal); Ketone-Dipstick 5 mg/dl (Negative); Leukocyte Esterase-Dipstick 500 /ul (Negative); Nitrite-Dipstick Positive (Negative); Occult Blood-Urine 250 /ul (Negative); Protein-Dipstick 100 mg/dl (Negative); Specific Gravity, Urine 1.015 (1.002-1.030); Urine Bilirubin Dipstick Negative (Negative); Urine Clarity Cloudy (Clear); Urine Urobilinogen 4 mg/dl (Normal)
[2023-07-15 09:36] LABS: White Blood Cells >100 SEEN /hpf (0-5)
[2023-07-15 09:37] LABS: Bacteria 3+ /hpf (None Seen); Red Blood Cells-Urine 25-50 SEEN /hpf (0-5)
== END ==
PROVIDERS: PCP Family Medicine Geriatric Medicine; Visit Provider Family Medicine Geriatric Medicine
DX: Z79.899 Other long term (current) drug therapy (principal)
CPT/HCPCS: 81001; 87077; 87086; 87088; 87186